=== PATIENT | female | born 1975 | race Caucasian/White ===

== ENCOUNTER 2022-11-30 21:56 | Outpatient (REF) | payer MEDICAID, SELFPAY ==
[2022-12-04 12:09] LABS: Age Gdln ACOG Testing Note (.); HPV Aptima Negative (Negative); IGP, Aptima HPV, rfx 16/18,45 Note (.)
== END 2022-11-30 21:57 | disposition home or self-care (01) ==
LOC: LAB 21:56
PROVIDERS: PCP Family Medicine; Visit Provider Physician Assistant
DX: Z12.4 Encounter for screening for malignant neoplasm of cervix (principal); Z11.51 Encounter for screening for human papillomavirus (HPV)
CPT/HCPCS: 87624; G0145

== ENCOUNTER 2023-01-15 16:10 | Emergency (ER) | payer MEDICAID, SELFPAY ==
[2023-01-15 16:12] VITALS: BP 147/73; PULSE 62; RESP 16; TEMP 36.6; O2SAT 98; BMI 30.3
--- NOTE | 2023-01-15 16:49 | ED_ITS ---
HPI - Back Pain/Injury General Chief Complaint: Back Pain/Injury Stated Complaint: Back pain, Muscle pain, Anxiety Time Seen by Provider: 01/15/23 16:49 Source: patient Mode of arrival: walk-in Limitations: no limitations History of Present Illness HPI Narrative: Patient presents to emergency department complaining of back pain. Patient states he has a history of anxiety. She also has chronic back pain. She states normally she gets injections for her back pain and that helps it. Today however she is having increased anxiety and muscle aches and diffuse myalgias. She states that she feels jittery. She states she takes trazodone to help her sleep at night but she lost states she can't find it and she has not taking it in the last 4 days. She states that she doesn't have a way of getting it refilled for the month until next week. She states she has taken her anxiety medication. She states he has restless legs. She denies any paresthesias, weakness. The pain management and injections were done at [facility]. She also states she has Graves' disease who is concerned that her thyroid levels could be off. She states however that she takes all of her medications religiously but somehow she just can't find trazodone. She denies any fever, chills, or cough. She denies any chest, shortness of breath. She denies any headache, visual disturbance, or speech difficulties. Denies any nausea, vomiting, diarrhea, constipation, abdominal pain. Denies any flank pain, hematuria, dysuria. Related Data Home Medications Medication Instructions Recorded Confirmed aripiprazole 5 mg tablet 5 mg PO DAILY 01/15/23 01/15/23 duloxetine 60 mg capsule,delayed 60 mg PO DAILY 01/15/23 01/15/23 release estradiol 2 mg tablet 2 mg PO DAILY 01/15/23 01/15/23 gabapentin 100 mg capsule 100 mg PO DAILY 01/15/23 01/15/23 levothyroxine 150 mcg tablet 150 mcg PO DAILY 01/15/23 01/15/23 lithium carbonate 300 mg capsule 300 mg PO BID 01/15/23 01/15/23 lorazepam 1 mg tablet 1 mg PO Q8H PRN agitation 01/15/23 01/15/23 metformin 500 mg tablet,extended 500 mg PO DAILY 01/15/23 01/15/23 release 24 hr naproxen 500 mg tablet 500 mg PO Q12H PRN pain 01/15/23 01/15/23 trazodone 100 mg tablet 100 mg PO BEDTIME 01/15/23 01/15/23 Previous Rx's Medication Instructions Recorded hydrocodone 5 mg-acetaminophen 325 1 tab PO Q6H PRN pain 3 days #10 01/15/23 mg tablet tabs trazodone 100 mg tablet 100 mg PO DAILY #10 tabs 01/15/23 Allergies Allergy/AdvReac Type Severity Reaction Status Date / Time amoxicillin [From Augmentin] Allergy Intermediate Verified 01/15/23 16:17 clavulanic acid Allergy Intermediate Verified 01/15/23 16:17 [From Augmentin] Review of Systems ROS Status of ROS 10 or more systems reviewed and unremarkable except as noted in history and below Exam Narrative Exam Narrative: Nurses notes and vital signs reviewed and patient is not hypoxic. General: Nontoxic, Well-appearing and in no apparent distress. Skin: Warm, dry, no pallor noted. No Rash Head: Normocephalic, atraumatic. Neck: Supple, non-tender. Eye: Pupils are equal, round and EOMI. No scleral icterus. Ears, Nose, Mouth, and Throat: TM clear, no posterior oropharynx erythema or nasal mucosal hypertrophy, uvula is mid-line Oral mucosa is moist Cardiovascular: Regular Rate and Rhythm without murmur, gallop or rub. Respiratory: No accessory muscle use or respiratory distress. Lungs are clear to auscultation, no wheezing, rales or rhonchi Chest Wall: no tenderness Back: No midline thoracic or lumbar vertebral tenderness. No erythema, or ecchymosis noted. The markings from injections still present. No CVA tenderness Musculoskeletal: normal ROM, no calf or popliteal tenderness, no lower extremity edema/swelling GI: Abdomen is soft, non-distended. Normal bowel sounds. No masses appreciated. No tenderness to palpation. No rebound, guarding, or rigidity noted. Neurological: A&O x4. No cranial nerve dysfunction observed. No truncal ataxia. Moves all extremities. Sensation intact. Psychiatric: Cooperative and interactive. anxious Constitutional Vital Signs, click to edit/add: Last Vital Signs Temp 97.8 F 01/15/23 16:12 Pulse 55 L 01/15/23 18:13 Resp 16 01/15/23 18:13 BP 120/57 01/15/23 18:13 Pulse Ox 98 01/15/23 18:13 O2 Del Method Room Air 01/15/23 18:13 Course Vital Signs Vital signs: Vital Signs Temperature 97.8 F 01/15/23 16:12 Pulse Rate 62 01/15/23 16:12 Respiratory Rate 16 01/15/23 16:12 Blood Pressure 147/73 H 01/15/23 16:12 Pulse Oximetry 98 01/15/23 16:12 Oxygen Delivery Method Room Air 01/15/23 16:12 Temperature 97.8 F 01/15/23 16:12 Pulse Rate 55 L 01/15/23 18:13 Respiratory Rate 16 01/15/23 18:13 Blood Pressure 120/57 01/15/23 18:13 Pulse Oximetry 98 01/15/23 18:13 Oxygen Delivery Method Room Air 01/15/23 18:13 MDM - Back Pain/Injury MDM Narrative Medical decision making narrative: It had an IV established, she was given 1 L of normal saline, Toradol. Patient was not able to find a ride so I will give her a prescription for trazodone and analgesics. Lab results are unremarkable. Patient does not have any focal neurologic deficit. all Results discussed with patient. Patient is feeling better. Patient was given a prescription for [place]. Or worse was checked. Patient does have Ativan written for her and she will take for spasms. At this time the patient is without objective evidence of an acute process requiring hospitalization or inpatient management. The patient has remained h emodynamically stable. No additional indication for emergent studies at this time. I answered all questions. Discussed discharge instructions including standard anticipatory guidance and what should prompt a return to the emergency department, including if they get worse are not getting better or develops any new or concerning symptoms. I've given them specific time frame in which to follow-up, and who to follow-up with. The patient demonstrates understanding. Patient is nontoxic and stable for discharge with outpatient follow-up. This note was created with the assistance of a speech recognition program. Although the intention is to generate documents that actually reflects the content of the visit, no guarantees can be provided that every mistake has been identified and corrected by editing. Differential Diagnosis Differential diagnosis: Likely strain of lumbar region Lab Data Attestation: I reviewed the patient's lab results. Labs: Lab Results 01/15/23 01/15/23 Range/Units 17:16 18:45 WBC 9.2 (4.0-11.0) 10^3/uL RBC 4.20 (4.20-5.40) 10^6/uL Hgb 12.4 (12.0-16.0) g/dL Hct 38.4 (36.0-48.0) % MCV 91.4 (81.0-99.0) fL MCH 29.5 (26.7-34.0) pg MCHC 32.3 (29.9-35.2) g/dL RDW 12.2 (11.0-15.0) % Plt Count 313 (150-450) 10^3/uL MPV 9.5 (9.5-13.5) fL Neut % (Auto) 90.1 H (43.0-75.0) % Lymph % (Auto) 6.7 L (20.5-60.0) % [place] % (Auto) 1.6 L (1.7-12.0) % Eos % (Auto) 0.5 L (0.9-7.0) % Baso % (Auto) 0.8 (0.2-2.0) % Neut # (Auto) 8.3 H (1.4-6.5) 10^3/uL Lymph # (Auto) 0.6 L (1.2-3.8) 10^3/uL [place] # (Auto) 0.2 L (0.3-0.8) 10^3/uL Eos # (Auto) 0.1 (0.0-0.7) 10^3/uL Baso # (Auto) 0.1 (0.0-0.1) 10^3/uL Abs Immat Gran (auto) 0.03 (0.00-0.03) 10^3/uL Imm/Tot Granulo (auto) 0.3 (0.0-0.5) % Sodium 138 (136-145) mmol/L Potassium 4.0 (3.5-5.1) mmol/L Chloride 106 (98-107) mmol/L Carbon Dioxide 25.5 (21.0-32.0) mmol/L Anion Gap 10.5 BUN 12.0 (7.0-18.0) mg/dL Creatinine 1.05 H (0.55-1.02) mg/dL Est GFR ( Amer) >60 (>=60) Est GFR (Non-Af Amer) 56 L (>=60) BUN/Creatinine Ratio 11.4 Glucose 141 H (74-106) mg/dL Calcium 9.1 (8.5-10.1) mg/dL Magnesium 2.1 (1.8-2.4) mg/dL Total Bilirubin 0.3 (0.2-1.0) mg/dL AST 22 (15-37) U/L ALT 26 (14-59) U/L Alkaline Phosphatase 101 (46-116) U/L Total Protein 7.7 (6.4-8.2) g/dL Albumin 3.9 (3.4-5.0) g/dL Globulin 3.8 g/dL Albumin/Globulin Ratio 1.0 TSH 0.596 (0.358-3.740) uIU/mL Urine Color Lt. yellow (YELLOW) Urine Clarity Clear (CLEAR) Urine pH 7.0 (5.0-9.0) Ur Specific [place] <=1.005 A (1.005-1.025) Urine Protein Negative (NEG/TRACE) mg/dL Urine Glucose (UA) Negative (NEGATIVE) mg/dL Urine Ketones Negative (NEGATIVE) mg/dL Urine Occult Blood Negative (NEGATIVE) Urine Nitrite Negative (NEGATIVE) Urine Bilirubin Negative (NEGATIVE) Urine Urobilinogen 0.2 (0.2-1.0) EU/dL Ur Leukocyte Esterase Negative (NEGATIVE) Discharge Plan Discharge Chief Complaint: Back Pain/Injury Clinical Impression: Insomnia, Low back pain Patient Disposition: Home, Self-Care Time of Disposition Decision: 18:58 Condition: Good Mode of Transportation: Private Vehicle Prescriptions / Home Meds: New trazodone 100 mg tablet 100 mg PO DAILY Qty: 10 0RF hydrocodone-acetaminophen 5-325 mg tablet 1 tab PO Q6H PRN (Reason: pain) 3 Days Qty: 10 0RF No Action aripiprazole 5 mg tablet 5 mg PO DAILY duloxetine 60 mg capsule,delayed release(DR/EC) 60 mg PO DAILY estradiol 2 mg tablet 2 mg PO DAILY gabapentin 100 mg capsule 100 mg PO DAILY levothyroxine 150 mcg tablet 150 mcg PO DAILY lithium carbonate 300 mg capsule 300 mg PO BID lorazepam 1 mg tablet 1 mg PO Q8H PRN (Reason: agitation) metformin 500 mg tablet extended release 24 hr 500 mg PO DAILY naproxen 500 mg tablet 500 mg PO Q12H PRN (Reason: pain) trazodone 100 mg tablet 100 mg PO BEDTIME Instructions: Insomnia (ED), Back Pain (ED) Stand Alone Forms: Portal Instructions Referrals: Hitesh Green MD [Primary Care Provider] - 1 week
[2023-01-15 17:22] LABS: Basophils Absolute Auto 0.1 10^3/uL (0.0-0.1); Basophils Percent Auto 0.8 % (0.2-2.0); Eosinophils Absolute Auto 0.1 10^3/uL (0.0-0.7); Eosinophils Percent Auto 0.5 % (0.9-7.0); Hematocrit 38.4 % (36.0-48.0); Hemoglobin 12.4 g/dL (12.0-16.0); Immature Granulocytes Abs Auto 0.03 10^3/uL (0.00-0.03); Immature Granulocytes Pct Auto 0.3 % (0.0-0.5); Lymphocytes Absolute Auto 0.6 10^3/uL (1.2-3.8); Lymphocytes Percent Auto 6.7 % (20.5-60.0); Mean Corpuscular HGB Conc 32.3 g/dL (29.9-35.2); Mean Corpuscular Hemoglobin 29.5 pg (26.7-34.0); Mean Corpuscular Volume 91.4 fL (81.0-99.0); Mean Platelet Volume 9.5 fL (9.5-13.5); Monocytes Absolute Auto 0.2 10^3/uL (0.3-0.8); Monocytes Percent Auto 1.6 % (1.7-12.0); Neutrophils Absolute Auto 8.3 10^3/uL (1.4-6.5); Neutrophils Percent Auto 90.1 % (43.0-75.0); Platelet Count 313 10^3/uL (150-450); Red Cell Distribution Width 12.2 % (11.0-15.0); White Blood Count 9.2 10^3/uL (4.0-11.0)
[2023-01-15] MEDS: 0.9 % SODIUM CHLORIDE 1,000 ML 999 ML IV (17:24)
[2023-01-15] MEDS: KETOROLAC TROMETHAMINE 30 MG/ML VIAL IVP (17:25)
[2023-01-15 17:47] LABS: Alanine Aminotransferase 26 U/L (14-59); Albumin Level 3.9 g/dL (3.4-5.0); Alkaline Phosphatase 101 U/L (46-116); Anion Gap 10.5; Aspartate Amino Transferase 22 U/L (15-37); BUN Creatinine Ratio 11.4; Bilirubin Total 0.3 mg/dL (0.2-1.0); Calcium 9.1 mg/dL (8.5-10.1); Carbon Dioxide 25.5 mmol/L (21.0-32.0); Chloride 106 mmol/L (98-107); Estimated GFR (African America >60 (>=60); Estimated GFR (Non-African Ame 56 (>=60); Globulin 3.8 g/dL; Glucose 141 mg/dL (74-106); Magnesium 2.1 mg/dL (1.8-2.4); Sodium 138 mmol/L (136-145); Thyroid Stimulating Hormone 0.596 uIU/mL (0.358-3.740); Total Protein 7.7 g/dL (6.4-8.2)
[2023-01-15 18:13] VITALS: BP 120/57; PULSE 55; RESP 16; O2SAT 98
[2023-01-15 18:53] LABS: Bilirubin Urine NEGATIVE (NEGATIVE); Blood Urine NEGATIVE (NEGATIVE); Clarity Urine CLEAR (CLEAR); Color Urine LT. YELLOW (YELLOW); Glucose Urine UA NEGATIVE (NEGATIVE); Ketones Urine NEGATIVE (NEGATIVE); Leukocyte Esterase Urine NEGATIVE (NEGATIVE); Nitrite Urine NEGATIVE (NEGATIVE); Protein Urine NEGATIVE (NEG/TRACE); Specific Gravity Urine <=1.005 (1.005-1.025); Urine Microscopic Indicated NO; Urobilinogen Urine 0.2 EU/dL (0.2-1.0)
== END 2023-01-15 19:18 | disposition home or self-care (01) ==
PROVIDERS: Emergency Provider Emergency Medicine; PCP Family Medicine
DX: M54.50 Low back pain, unspecified (principal); G47.00 Insomnia, unspecified; F41.9 Anxiety disorder, unspecified; E05.00 Thyrotoxicosis with diffuse goiter without thyrotoxic crisis or storm; Z79.899 Other long term (current) drug therapy; Z79.84 Long term (current) use of oral hypoglycemic drugs; Z79.890 Hormone replacement therapy
CPT/HCPCS: 36415; 80053; 81003; 83735; 84443; 85025; 96374; 99284

== ENCOUNTER 2023-10-27 12:31 | Outpatient (OUT) | payer MEDICAID, SELFPAY ==
--- NOTE | 2023-10-27 12:34 | MM_ITS ---
Patient Name: LAKIA TALBERT MR#: [id number] : 1975 Exam Date: 10/27/2023 Ordering Doctor: DR Hitesh Green . RADIOLOGY REPORT PROCEDURE: MM TOMOSYNTHESIS SCREENING BI COMPARISON: MG MAMM SCREEN RAFAEL W CAD, 11/02/2018. MG MAMM SCREEN RAFAEL W CAD, 08/31/2016. INDICATIONS: Screening Calculator Name NCI Breast Cancer Risk Assessment Tool 5 Year Breast Cancer Risk 1.00% Lifetime Breast Cancer Risk 10.20% Personal Breast Cancer No Personal Ovarian Cancer No Treatments None Family Cancers None LOCATION: [facility] BREAST COMPOSITION: The breasts are heterogeneously dense,which may obscure small masses. FINDINGS: DIAGNOSTIC CATEGORY 1--NEGATIVE. RIGHT BREAST: No significant suspicious finding. No significant change has occurred. LEFT BREAST: No significant suspicious finding. No significant change has occurred. RECOMMENDATIONS: ROUTINE MAMMOGRAM AND CLINICAL EVALUATION IN 12 MONTHS. PLEASE NOTE: A NORMAL MAMMOGRAM DOES NOT EXCLUDE THE POSSIBILITY OF BREAST CANCER. A CLINICALLY SUSPICIOUS PALPABLE LUMP SHOULD BE BIOPSIED. Dictated by: Shade Lopez M.D. on 10/29/2023 at 11:05 Approved by: Shade Lopez M.D. on 10/29/2023 at 11:17
== END 2023-10-27 12:32 | disposition home or self-care (01) ==
LOC: MAMMO 12:31
PROVIDERS: PCP Family Medicine; Visit Provider Family Medicine
DX: Z12.31 Encounter for screening mammogram for malignant neoplasm of breast (principal)
CPT/HCPCS: 77063; 77067

== ENCOUNTER 2023-11-05 12:55 | Outpatient (OUT) | payer MEDICAID, SELFPAY ==
--- NOTE | 2023-11-05 12:58 | CT_ITS ---
[address] [address] Patient Name: LAKIA TALBERT MRN: [id number] date: 1975 Sex: F Assigned Patient Location: CT Current Patient Location: Accession/Order Number: [id number] Exam Date: 11/05/2023 13:02 Report Date: 11/08/2023 08:07 At the request of: JAYLA OBREGON Procedure: CT chest wo con EXAMINATION: CT chest wo con HISTORY: Abnormal Radionuclide Bone Scan R94.8 COMPARISON: Nuclear medicine bone SPECT CT with whole-body 10/01/2023 TECHNIQUE: Multi-planar CT images were obtained without and/or with IV contrast as indicated by examination type. Axial, Coronal, and Sagittal images. Dose reduction techniques were achieved by using automated exposure control and/or adjustment of mA and/or kV according to patient size and/or use of iterative reconstruction technique. FINDINGS: LUNGS: No visible pulmonary disease. PLEURA: No mass, effusion, or pneumothorax. VASCULATURE: No abnormality. EDUAR: No mass or adenopathy. MEDIASTINUM: No mass or adenopathy. CARDIAC: No enlargement or pericardial thickening.. Coronary artery calcifications: AORTA: No aneurysm or dissection. CHEST WALL: No mass or axillary adenopathy. BONES: No bone lesion or fracture. LIMITED ABDOMEN: No suspicious findings Limited images of the upper abdomen. OTHER: Negative. CT/CT chest wo con IMPRESSION: 1. No abnormal or suspicious findings with specific attention paid to the lower right margin of the sternum. Electronically authenticated by: THERESA HARRIS Date: 11/08/2023 08:07
== END 2023-11-05 12:56 | disposition home or self-care (01) ==
LOC: CT 12:55
PROVIDERS: PCP Family Medicine; Visit Provider Family Medicine
DX: R94.8 Abnormal results of function studies of other organs and systems (principal)
CPT/HCPCS: 71250

== ENCOUNTER 2023-12-07 19:14 | Outpatient (REF) | payer MEDICAID, SELFPAY ==
[2023-12-13 12:09] LABS: Age Gdln ACOG Testing Note (.); HPV Aptima Negative (Negative); IGP, Aptima HPV, rfx 16/18,45 Note (.)
== END 2023-12-07 19:15 | disposition home or self-care (01) ==
LOC: LAB 19:14
PROVIDERS: PCP Family Medicine; Visit Provider Obstetrics & Gynecology
DX: Z01.419 Encounter for gynecological examination (general) (routine) without abnormal findings (principal)
CPT/HCPCS: 87624; 88175

== ENCOUNTER 2023-12-16 10:15 | Outpatient (OUT) | payer MEDICAID, SELFPAY ==
--- OUTSIDE RECORDS SUMMARY | 2023-12-16 10:39 | XMS_ITS | CCD ---
Author Organization [facility] Care Team Providers Care Film And Video Editor Name Role Phone Jose Alfredo Perez Unavailable MALINDA, DR BELTRAN Admitting Unavailable MALINDA, DR BELTRAN Attending Unavailable NADERER, DR HITESH Johnson Primary Care Unavailable MALINDA, DR BELTRAN Consulting Unavailable NADERER, DR HITESH Johnson Admitting Unavailable NADERER, DR HITESH Johnson Attending Unavailable NADERER, DR HITESH Johnson Primary Care Unavailable NADERER, DR HITESH Johnson Consulting Unavailable NADERER, DR HITESH Johnson Admitting Unavailable NADERER, DR HITESH Johnson Attending Unavailable NADERER, DR HITESH Johnson Primary Care Unavailable NADERER, DR HITESH Johnson Consulting Unavailable NADERER, DR HITESH Johnson Admitting Unavailable NADERER, DR HITESH Johnson Attending Unavailable NADERER, DR HITESH Johnson Primary Care Unavailable NADERER, DR HITESH Johnson Consulting Unavailable NADERER, DR HITESH Johnson Admitting Unavailable NADERER, DR HITESH Johnson Attending Unavailable NADERER, DR HITESH Johnson Primary Care Unavailable TULSA, DR WAYNE Alvarado Consulting Unavailable ZIEBER, DR THERESA Diez Consulting Unavailable NADERER, DR HITESH Johnson Consulting Unavailable Naderer Hitesh BEE Primary Care Provider OTIS VAZQUEZ Attending Unavailable VAZQUEZ, OTIS E Referring Unavailable NADERER, HITESH Primary Care Unavailable OTIS VAZQUEZ Admitting Unavailable OTIS VAZQUEZ Attending Unavailable NADEREHITESH Diez Referring Unavailable NADERER, HITESH Primary Care Unavailable SONALI LOPEZ Attending Unavailable NADERERHITESH Referring Unavailable NADERER, HITESH Primary Care Unavailable EVITA, OTIS E Admitting Unavailable EVITA, OTIS E Attending Unavailable NADEREChary, HITESH Referring Unavailable NADERER, HITESH Primary Care Unavailable OTIS VAZQUEZ Attending Unavailable EVITA, OTIS E Referring Unavailable NADERER, HITESH Primary Care Unavailable ANURAG NAGY Attending Unavailable HITESH OBREGON Primary Care Unavailable SONALI LOPEZ Attending Unavailable HITESH OBREGON Referring Unavailable HITESH OBREGON Primary Care Unavailable OTIS VAZQUEZ Attending Unavailable OTIS VAZQUEZ Referring Unavailable MINDI, HITESH Primary Care Unavailable OTIS VAZQUEZ Admitting Unavailable OTIS VAZQUEZ Attending Unavailable HITESH OBREGON Referring Unavailable HITESH OBREGON Primary Care Unavailable ANURAG NAGY Attending Unavailable HITESH OBREGON Primary Care Unavailable LUZ MARIA CANTU Referring Unavailable HITESH OBREGON Primary Care Unavailable Ickes PA-C, Tia Renee Attending Unav ailable Ickes PA-C, Tia Renee Attending Unav ailable Wade BEE, Selma Daniels Attending Unavailable Hitesh Obregon MD [facility] Unavail able Nienberg PA-C, Sonali Laguerre Referring Un available Ickes PA-C, Tia Renee Attending Unav ailable Ickes PA-C, Tia Rainey Attending Unav ailable Hitesh Obregon MD [facility] Unavail able Ickes PA-C, Tia Brigid Attending Unav ailable Ickes PA-C, Tia Brigid Attending Unav ailable Ickes PA-C, Tia Renee Attending Unav ailable [facility] HITESH OBREGON Attending Unavailable ADORE MENDOZA Attending Unavailable HITESH OBREGON Attending Unavailable DEVIN PETTY Attending Unavailable Viral Ha Attending Unavailab le Viral Ha Admitting Unavailab le Allergies Allergy Classification Reported Allergen(s) Allergy Type Date of Onset Reaction(s) Facility Amoxicillin / Clavulanate (1 source) Amoxicillin / Clavulanate; Translations: [amoxicillin-cla vulanate] Drug Allergy [facility] Repository Latex (1 source) Latex; Translations: [Latex] Substance Allergy [facility] Repository (4 sources) Amoxicillin / [facility] Latex; Translations: [LATEX] Drug allergy 5 Unknown [facility] (1 source) Amoxicillin / Clavulanate Drug Allergy 3 [facility] Repository (1 source) Latex Drug allergy (disorder) 3 [facility] (1 source) Levamisole Drug Allergy 3 [facility] (1 source) Meclizine Drug Allergy 3 [facility] (1 source) AMOXICILLIN-POT CLAVULANATE; Translations: [AMOXICILLIN-POT CLAVULANATE] Propensity to adverse reactions to drug (disorder) 5 [facility] Repository (1 source) Amoxicillin Drug Allergy 3 [facility] Repository (1 source) Clavulanate Drug Allergy 3 [facility] Repository (1 source) Latex Drug allergy (disorder) 3 [facility] Repository Medications Current Medications Medication Drug Class(es) Dates Sig (Normalized) Sig (Original) ARIPiprazole 5 mg oral tablet (3 sources) Atypical Antipsychotic take 1 tablet by mouth in the morning ARIPiprazole (ABILIFY) 5 mg tablet Take 1 tablet (5 mg total) by mouth in the morning. 0 Active cariprazine 1.5 mg oral capsule (1 source) Atypical Antipsychotic Start: 08-05-2023 take 1 capsule by mouth once daily VRAYLAR 1.5 mg capsule TAKE 1 CAPSULE BY MOUTH DAILY 0 08/05/2023 Active cholecalciferol 0.05 mg oral tablet (4 sources) Vitamin D Start: 04-29-2021 VITAMIN D3 50 mcg (2,000 unit) tablet Vitamin D3 50 MC G (2000 UT) Oral for 30 Active cyclobenzaprine hydrochloride 10 mg oral tablet (3 sources) Muscle Relaxant Start: 11-18-2018 cyclobenzaprine (FLEXERIL) 10 mg tablet DULoxetine 60 mg delayed release oral capsule (4 sources) Serotonin and Norepinephrine Reuptake Inhibitor Start: 12-07-2018 DULoxetine (CYMBALTA) 60 mg capsule 0 12/07/2018 Active estradiol 2 mg oral tablet (4 sources) Estrogen take 1 tablet by mouth in the morning estradiol (ESTRACE) 2 mg tablet Take 1 tablet (2 mg total) by mouth in the morning. 0 Active gabapentin 100 mg oral capsule (3 sources) Anti-epileptic Agent Start: 08-02-2022 take 1 capsule by mouth in the morning, then take 1 capsule by mouth at bedtime gabapentin (NEURONTIN) 100 mg capsule Take 1 capsule (100 mg total) by mouth in the morning and 1 capsule (100 mg total) before bedtime. 0 08/02/2022 Active levothyroxine sodium 0.137 mg oral tablet (7 sources) l-Thyroxine Start: 05-25-2021 take 1 tablet by mouth in the morning levothyroxine (SYNTHROID, LEVOTHROID) 137 MCG tablet Take 1 tablet (137 mcg total) by mouth in the morning. 0 05/25/2021 Active Start: 11-19-2018 levothyroxine (SYNTHROID, LEVOTHROID) 75 MCG tablet 2 tablets (150 mcg total). 0 11/19/2018 Active take 1 tablet by jesus manuel th once daily Levothyroxine Sodium 137 MCG TAKE 1 TABLET BY MOUTH DAILY Diagnosis Unavailable Oral for 30 Active lithium carbonate 300 mg oral capsule (4 sources) Start: 11-21-2018 take 1 capsule by mouth in the morning, then take 1 capsule by mouth at mealtime lithium carbonate 300 mg capsule Take 1 capsule (300 mg total) by mouth in the morning and 1 capsule (300 mg total) in the evening. Take with meals. 0 11/21/2018 Active LORazepam 1 mg oral tablet (4 sources) Benzodiazepine LORazepam (ATIVA N) 1 mg tablet Take 1 tablet (1 mg total) by mouth. 0 Active 24 hr metFORMIN hydrochloride 500 mg extended release oral tablet (3 sources) Biguanide take 1 tablet by mouth once daily at breakfast metFORMIN XR (GLUCOPHAGE XR) 500 mg 24 hr tablet Take 1 tablet (500 mg total) by mouth daily with breakfast. 0 Active methocarbamol 750 mg oral tablet (4 sources) Muscle Relaxant Start: 04-29-2021 take 1 tablet by mouth three times daily as needed methocarbamoL (ROBAXIN) 750 mg tablet Take 1 tablet (750 mg total) by mouth 3 (three) times a day as needed. 0 04/29/2021 Active methylPREDNISolone (3 sources) Corticosteroid Start: 01-26-2023 methylPREDNISolone (MEDROL, MISHA,) 4 mg tablet follow package directions 21 tablet 0 01/26/2023 Active naproxen 500 mg oral tablet (3 sources) Nonsteroidal Anti-inflammatory Drug take 1 tablet by mouth in the morning, then take 1 tablet by mouth at mealtime naproxen (NAPROSYN) 500 mg tablet Take 1 tablet (500 mg total) by mouth in the morning and 1 tablet (500 mg total) in the evening. Take with meals. 0 Active omeprazole 20 mg delayed release oral capsule (3 sources) Proton Pump Inhibitor take 1 capsule by mouth in the morning omeprazole (PriLOSEC) 20 mg capsule Take 1 capsule (20 mg total) by mouth in the morning. 0 Active traZODone hydrochloride 100 mg oral tablet (4 sources) Serotonin Reuptake Inhibitor take 1 tablet by mouth once daily traZODone (DESYREL) 100 mg tablet Take 1 tablet (100 mg total) by mouth nightly. 0 Active Problems Active Problems Problem Classification Problem Date Documented Da te Episodic/Chronic Nutritional deficiencies (1 source) Vitamin D deficiency, unspecified; Translations: [VITAMIN D DEFICIENCY UNSPECIFIED] Onset: 07-04-2021 Chronic Other ear and sense organ disorders (3 sources) Hearing loss; Translations: [Unspecified hearing loss, unspecified ear] Onset: 12-14-2018 12-14-2018 Chronic Other gastrointestinal disorders (1 source) Irritable bowel syndrome characterized by constipation; Translations: [Irritable bowel syndrome without diarrhea] Chronic Spondylosis; intervertebral disc disorders; other back problems (15 sources) Bilateral inflammation of sacroiliac joint; Translations: [Sacroiliitis, not elsewhere classified] Onset: 05-06-2021 Resolved: 05-22-2021 Chronic Spondylosis; intervertebral disc disorders; other back problems (7 sources) Spinal stenosis of lumbar region; Translations: [Spinal stenosis, lumbar region with neurogenic claudication] Onset: 04-09-2022 07-16-2022 Episodic Thyroid disorders (5 sources) Hypothyroidism, unspecified; Translations: [HYPOTHYROIDISM UNSPECIFIED] Onset: 10-01-2021 Chronic Past or Other Problems Problem Classification Problem Date Documented Da te Episodic/Chronic Abdominal hernia (1 source) Hiatal hernia; Translations: [Diaphragmatic hernia without obstruction or gangrene] Episodic Abdominal pain (2 sources) Abdominal pain; Translations: [Unspecified abdominal pain] Episodic Conditions associated with dizziness or vertigo (3 sources) Dizziness; Translations: [Dizziness and giddiness] Onset: 12-14-2018 12-14-2018 Episodic Hemorrhoids (1 source) Hemorrhoids; Translations: [Unspecified hemorrhoids] Episodic Immunizations and screening for infectious disease (1 source) Encounter for screening for human papillomavirus (HPV); Translations: [ENC SCREENING HUMAN PAPILLOMAVIRUS] Onset: 06-05-2021 Episodic Other aftercare (6 sources) Other halfway (current) drug therapy; Translations: [OTH GAMMA OPERATOR CURRENT DRUG THERAPY] Onset: 09-29-2021 Episodic Other ear and sense organ disorders (3 sources) Bilateral tinnitus; Translations: [Tinnitus, bilateral] Onset: 12-14-2018 12-14-2018 Episodic Other gastrointestinal disorders (1 source) Constipation; Translations: [Constipation, unspecified] Episodic Other gastrointestinal disorders (1 source) Swollen abdomen; Translations: [Abdominal distension (gaseous)] Episodic Other gastrointestinal disorders (1 source) Heartburn; Translations: [Heartburn] Episodic Other non-traumatic joint disorders (1 source) Pain in left shoulder; Translations: [PAIN IN LEFT SHOULDER] Onset: 05-10-2021 Episodic Other nutritional; endocrine; and metabolic disorders (1 source) Weight gain; Translations: [Abnormal weight gain] Episodic Other screening for suspected conditions (not mental disorders or infectious disease) (4 sources) Encounter for screening for malignant neoplasm of cervix; Translations: [ENC SCREENING MALIG NEOPLASM CERV] Onset: 06-02-2021 Episodic Results Test Name Value Interpretation Reference Range Facility MR LUMBAR SPINE WO CONTon MR LUMBAR SPINE WO CONT MR LUMBAR SPINE WO CONT *ADDENDUM*Images are further reviewed the has request by the referring physician. Further reviewed of the images reveal severe disc degenerative disease at L5-S1. There is a bone marrow changes in the adjacent endplates. There is a mixed hyper intensity in the adjacent endplates and surrounded by hypointensity. Appearance is consistent with mixed Modic type I/type II criteria. Findings represent bone marrow conversion into the fatty marrow. Rest of the vertebrae with the normal bone marrow for the patient's age. If you need any additional information please call me at your convenience. Finalized by Joe Fairbanks MD on 10/29/2023 1:26 PM [facility] Pain Management Office/Clini c Noteon 10-29-2023 Pain Management Office/Clinic Note Chief Complaint Lower back pain. Bilateral leg pain from hips to ankles. Right hip pain. History of Present Illness Opioid Risk Assessment Oswestry Disability Form AM Behavior: Same Family History of Substance Abuse: None PM Pain Intensity: The pain is moderate at the moment Day Progresses Behavior: Same Personal History of Substance Abuse: None PM Personal Care: It is painful to look after myself and I am slow and careful PM Behavior: Same Age Between 16 and 45: No PM Sitting: Pain prevents me from sitting more than one hour Timing of onset: pt reports pain started 20 years ago. History of Preadolescent Sexual Abuse: No PM Pain Lifting: Pain prevents me from lifting heavy weights off the floor, but I can manage if they are conveniently placed eg. on a table Related injury/event: pt denies any injury or event related to pain. Mental Health Condition: Yes PM Walking: Pain prevents me from walking more than 1 mile Past treatment: PT: noneChiropractic: noneInjections: PRN with Dr[facility] Vazquez in [facility]. Surgery: noneTENS: Home unit Depression: Yes PM Standing: Pain prevents me from standing form more than 30 minutes Pain location and laterality: Lower back pain. Bilateral leg pain from hips to ankles. Right hip pain. Total Opioid Risk Score: 3 PM Sleeping: My sleep is occasionally disturbed by pain Pain quality: Aching, Burning, Cramping Total Score Risk Category: Low risk PM Sex Life: My sex life is normal and causes no pain/NA Pain Pattern: Constant PM Social Life: Pain has restricted my social life to my home Pain rate at rest: 3 PM Traveling: Pain prevents me from traveling except to receive treatment Pain rate with activity: 10 PM Oswestry Score: 44 Bending: Aggravating PM Oswestry Score Interpretation: 41% to 60% Severe Disability: Pain remains the main problem in this group but activities of daily living are affected. These patients require a detailed investigation. Cold/Ice: No effect Heat: Alleviating Lifting: Aggravating Lying: Alleviating Medications: Alleviating Performance of ADL's: Aggravating Pushing/Pulling: Aggravating Sitting: Aggravating Stairs: Aggravating Standing: Aggravating Transitioning: Aggravating Walking: Aggravating Sensory impairment location: intermittent numbness and tingling in bilateral legs. Comments TENS: Home unit - no help Date Chiropractor: none Date PT: none Date Injections: Current Frequency Injections: PRN Effective Injections: helps Comments Injections: Dr. Vazquez in [facility] Date Surgery: none Recent testing: Yes Recent testing type: Total body bone scanXR scoliosis studyCT LumbarMR lumbar Loss of bladder/bowel: Denies Demeanor: Pleasant Distress: Moderate Appearance: Appropriate Cognitive impairment: No Feels safe at home: Yes Suicidal/homicidal ideation: No Family History of Substance Abuse: None Personal History of Substance Abuse: None Age Between 16 and 45: No History of Preadolescent Sexual Abuse: No Mental Health Condition: Yes Depression: Yes Total Opioid Risk Score: 3 Total Score Risk Category: Low risk Review of Systems A review of systems was conducted and noted to be noncontributory to the patients presenting complaint. Full details are available on form [id number] completed by the patient and added to the record on today's date. Physical Exam Vitals & Measurements HR: 63 (Peripheral) RR: 18 BP: 123/83 HT: 167 cm WT: 89.3 kg (Estimated) BMI: 32.02 CONSTITUTIONAL: The patient is alert and oriented ?3. There is no cognitive impairment. HEENT: normocephalic/atraumat ic. Trachea in the midline. RESPIRATIONS: Unlabored ABDOMEN: Soft, nontender EXTREMITIES: +2 distal pulses, Refill brisk, Homans sign absent. NEUROLOGIC: Sensorium and intact T12 through S1. +5 MRC in the lower extremity motor units. Long track signs are absent. Lumbar-no significant tenderness to palpation noted in the lumbar spine and paraspinal musculature. Pain is elicited with extension, and lateral rotation of the lumbar spine. Range of motion is slightly diminished with these motions due to pain. Coordination remains intact. Gait remains non-antalgic. Additional Vitals BP Position/Location: Sitting, Left arm Assessment/Plan Diagnosis: Vertebrogenic pain derived at L5-S1, lumbar spondylosis This is a pleasant 48-year-old female who presents for evaluation. The patient has engaged in a 6 week course of dedicated physiologic therapeutics within the last 3 months. A 6 week trial of activity modification including transition maneuver avoidance as well as strict upper extremity lift and movement limits has failed to provide reprieve. The patient has failed to respond to a 3 month trial of oral analgesic therapy including nonsteroidal anti-inflammatory agents and muscle relaxant modalities. Her imaging was reviewed, which is significant for Modic changes at L5-S1. This was confirmed by the radiologist and her neurosurgeon, (more content not included)... Normal [facility] Neurosurgery Office/Clinic N oteon 05-28-2024 Neurosurgery Office/Clinic Note Chief Complaint Back Follow Up History of Present Illness Patient is a pleasant 48-year-old female with a history of fibromyalgia, insulin resistance, Vitamin D defiiciency, and Graves' disease, who presents to the outpatient neurosurgical clinic today accompanied by her mother, for follow up and imaging review on behalf of complaints of chronic low back pain. Patient states she has struggled with components of chronic low back pain for most of her adult life. She states this has historically been under moderate control with conservative management, but that she experienced worsening in low back pain approximately 9 months ago without injury. Patient states symptoms have been stable since onset. Patient currently describes midline and bilateral lumbosacral pain that is constant, but is worse with prolonged sitting, prolonged standing/walking, and mechanical movement/use. She notes less prominent intermittent pain throughout the bilateral lower extremities, right greater than left, in a somewhat nonspecific/nondermato mal distribution. She also notes intermittent numbness/paresthesias throughout the lateral toes of the right foot. Patient denies proximal right lower extremity numbness/paresthesias and denies left lower extremity numbness or paresthesias. She denies motor weakness in the lower extremities, bowel/bladder incontinence, or saddle paresthesias. Patient reports components of coexisting chronic cervical and thoracic pain without recent change or worsening and without intractable pain. She denies radicular pain into the upper extremities or chest wall/thorax. She denies numbness or paresthesias in the upper extremities or chest wall/thorax. Patient denies motor weakness in the upper extremities, decreased dexterity, or chronic gait imbalance. Work up includes: MRI lumbosacral spine 02/15/2023: Multisegmental degenerative disc disease and facet arthropathy most advanced at L5-S1 with disc height collapse; central/left paracentral disc L5-S1 with left L5-S1 lateral recess stenosis CT lumbosacral spine 05/13/2023: No pars defects; advanced degenerative changes at L5-S1 with Modic changes in the endplates and vacuum disc phenomenon; degenerative changes of the bilateral SI joints Bone SPECT scan 10/01/23: no abnormal uptake in lumbar spine or SI joints; non specific focal uptake in midsternum (radiology recommendation for CT chest for further evaluation) Flexion/extension films lumbosacral spine 05/13/2023: Stable Scoliosis x-rays 05/13/2023: No significant disruption in sagittal balance Patient denies physical therapy or healthcare market consultant. Her pain has been refractory to oral medication management including gabapentin, Cymbalta, NSAIDs, and muscle relaxers. In addition, she is established with pain management and has attempted injection modalities historically including, in the past year, bilateral L4-5 and L5-S1 RFA's 02/2022, caudal epidural injections 06/12/2022 and 08/10/2022, and bilateral SI injections 09/10/2022 and 01/10/2023. Patient reports that historically, lumbar RFA's have provided a notable degree of benefit. Most recently, she underwent repeat right lumbar RFA's mid July with minimal benefit. Patient currently rates her pain in the mid to high VAS range on a standard pain scale. She estimates that 90% of her pain is attributable to axial lumbar pain with the remaining 10% being attributable to lower extremity symptoms. Patient states symptoms interrupt sleep and activity level/function. Physical Exam Vitals & Measurements HR: 60 (Peripheral) BP: 150/100 SpO2: 96 HT: 168 cm WT: 91.7 kg WT: 91.7 kg (Dosing) BMI: 32.49 Additional Vitals BP Position/Location: Sitting, Right arm General: [Alert and oriented, well nourished, no acute distress]. Eye: [normal conjunctiva, no scleral icterus]. HENT: [normocephalic, atraumatic, oral mucosa pink and moist, dentition intact]. Neck: [Supple]. Pulmonary: [non-labored respiration]. Cardiovascular: [no edema, strong pulses with rapid capillary refill]. Skin: [Normal temperature and texture; no rashes; no digit clubbing or cyanosis]. Psychiatric: [Appropriate judgment and insight, appropriate mood and affect]. On exam in the office, patient is seated comfortably in a chair and is non painful appearing. The thoracolumbar spine is without deformities. Diffuse trigger points are noted throughout the paravertebral musculature of the spinal axis, proximal upper extremities bilaterally, and hip/gluteal region/proximal lower extremities bilaterally consistent with underlying fibromyalgia; tenderness to palpation is also noted throughout the lumbar facet regions bilaterally; thoracolumbar spine is nontender to percussion. Bilateral sacroiliac regions are nontender to palpation. Range of motion restricted with increase in pain with flexion, extension, and facet loading maneuvers . No lumbar neurotension signs with negative straight leg raise, reverse straight leg raise, and femoral stretch test bilaterally. Bilateral (more content not included)... Normal [facility] Provider Letteron 10-19-2023 Provider Letter Hitesh Obregon MD [address] [place] [address] Re: Lakia Talbert Date of Visit: 10/19/2023 Dear Hitesh Obregon, Thank you for allowing me to contribute to the care of your patient, Lakia Talbert. Attached is my office note and you will find my assessment and recommendations from our encounter today. Please do not hesitate to contact me with any questions or concerns. Sincerely, Tia Webb PA-C [facility] [address] [address] The following document(s) were included in the letter: October 19, 2023 14:26:47 EDT - (10/19/2023) Neurosurgery Office Visit Note Normal [facility] NM Bone SPECT CT with Whole Bodyon 10-04-[address] with Whole Body NUCLEAR MEDICINE TOTAL BODY BONE SCAN AND SPECT-CT HISTORY: Back pain. COMPARISON: X-ray lumbar spine 05/13/2023. METHOD: The patient was injected intravenously with 26.4 mCi of Tc-99m MDP, scintigraphy of the entire skeleton was performed more than three hours later. SPECT CT of the lumbar spine was performed. FINDINGS: There is a focus of increased uptake seen in the midsternum. There is no evidence of abnormal uptake in the spine, ribs or manubrium. On planar images, there is mild uptake in the bilateral hip joints with no significant abnormal uptake on the SPECT-CT. The entire hip joints are not visualized but do not appear to have significant degenerative changes on the visualized portions of the hip joints on CT. There is moderate narrowing at the L5-S1 disc space with no significant abnormal uptake. There is no evidence of abnormal uptake in the pars reticularis. IMPRESSION: No evidence of abnormal uptake in the lumbar spine. There is degenerative disc disease at L5-S1. Focal increased uptake in the midsternum. Recommend correlation with CT chest without contrast to exclude underlying aggressive bone lesion. Also recommend bilateral screening mammogram if not recently performed. Final Dictated by: Will Berger MD Dictated DT/TM: 10/04/2023 11:56 am Signed by: Will Berger MD Signed (Electronic Signature): 10/04/2023 12:04 pm (If Report Is Signed, Electronically Signed in Other Vendor System) Normal [facility] Neurosurgery Office/Clinic N romion 09-13-2023 Neurosurgery Office/Clinic Note Chief Complaint Back consult History of Present Illness Patient is a pleasant 48-year-old female with a history of fibromyalgia, insulin resistance, Vitamin D defiiciency, and Graves' disease, who presents to the outpatient neurosurgical clinic today accompanied by her mother, for follow up and imaging review on behalf of complaints of chronic low back pain. Patient states she has struggled with components of chronic low back pain for most of her adult life. She states this has historically been under moderate control with conservative management, but that she experienced worsening in low back pain approximately 7-8 months ago without injury. Patient states symptoms have been stable since onset. Patient currently describes midline and bilateral lumbosacral pain that is constant, but is worse with prolonged sitting, prolonged standing/walking, and mechanical movement/use. She notes less prominent intermittent pain throughout the bilateral lower extremities, right greater than left, in a somewhat nonspecific/nondermato mal distribution. She also notes intermittent numbness/paresthesias throughout the lateral toes of the right foot. Patient denies proximal right lower extremity numbness/paresthesias and denies left lower extremity numbness or paresthesias. She denies motor weakness in the lower extremities, bowel/bladder incontinence, or saddle paresthesias. Patient reports components of coexisting chronic cervical and thoracic pain without recent change or worsening and without intractable pain. She denies radicular pain into the upper extremities or chest wall/thorax. She denies numbness or paresthesias in the upper extremities or chest wall/thorax. Patient denies motor weakness in the upper extremities, decreased dexterity, or chronic gait imbalance. Work up includes: MRI lumbosacral spine 02/15/2023: Multisegmental degenerative disc disease and facet arthropathy most advanced at L5-S1 with disc height collapse; central/left paracentral disc L5-S1 with left L5-S1 lateral recess stenosis CT lumbosacral spine 05/13/2023: No pars defects; advanced degenerative changes at L5-S1 with Modic changes in the endplates and vacuum disc phenomenon; degenerative changes of the bilateral SI joints Flexion/extension films lumbosacral spine 05/13/2023: Stable Scoliosis x-rays 05/13/2023: No significant disruption in sagittal balance Patient denies physical therapy or healthcare market consultant. Her pain has been refractory to oral medication management including gabapentin, Cymbalta, NSAIDs, and muscle relaxers. In addition, she is established with pain management and has attempted injection modalities historically including, in the past year, bilateral L4-5 and L5-S1 RFA's 02/2022, caudal epidural injections 06/12/2022 and 08/10/2022, and bilateral SI injections 09/10/2022 and 01/10/2023. Patient reports that historically, lumbar RFA's have provided a notable degree of benefit. Since time of last office visit, she underwent repeat right lumbar RFA's mid July with an estimated 50% improvement in pain. She is in the process of proceeding with left lumbar DMR's. Patient currently rates her pain in the mid to high VAS range on a standard pain scale. She estimates that 90% of her pain is attributable to axial lumbar pain with the remaining 10% being attributable to lower extremity symptoms. Patient states symptoms interrupt sleep and activity level/function. Physical Exam Vitals & Measurements HR: 53 (Peripheral) BP: 116/77 HT: 167.5 cm WT: 90.7 kg WT: 90.7 kg (Dosing) BMI: 32.33 Additional Vitals BP Position/Location: Sitting, Right arm General: [Alert and oriented, well nourished, no acute distress]. Eye: [normal conjunctiva, no scleral icterus]. HENT: [normocephalic, atraumatic, oral mucosa pink and moist, dentition intact]. Neck: [Supple]. Pulmonary: [non-labored respiration]. Cardiovascular: [no edema, strong pulses with rapid capillary refill]. Skin: [Normal temperature and texture; no rashes; no digit clubbing or cyanosis]. Psychiatric: [Appropriate judgment and insight, appropriate mood and affect]. On exam in the office, patient is seated comfortably in a chair and is non painful appearing. The thoracolumbar spine is without deformities. Diffuse trigger points are noted throughout the paravertebral musculature of the spinal axis, proximal upper extremities bilaterally, and hip/gluteal region/proximal lower extremities bilaterally consistent with underlying fibromyalgia; tenderness to palpation is also noted throughout the lumbar facet regions bilaterally; thoracolumbar spine is nontender to percussion. Bilateral sacroiliac regions are nontender to palpation. Range of motion restricted with increase in pain with flexion, extension, and facet loading maneuvers . No lumbar neurotension signs with negative straight leg raise, reverse straight leg raise, and femoral stretch test bilaterally. Bilateral hips are nontender to palpation with negative hip pointer signs. Muscle strength is 5 o (more content not included)... Normal [facility] Glucose Glucometer (BldC) [M ass/Vol]on 09-03-2023 Glucose [Mass/Vol] 99 mg/dL Normal 65-99 [facility] CALCIUMon 07-19-2023 Calcium [Mass/Vol] 9.9 mg/dL Normal 8.5-10.5 [facility] Comment on above: Performed By: #### 1 7861-6, ELEC, 3016-3, 3024-7, 91752-8 #### [facility] ([id number]) [address], [address] [place] [address] ELECTROLYTESon 07-19-2023 Anion gap [Moles/Vol] 8 mmol/L Normal 5-15 [facility] Comment on above: Performed By: #### 1 7861-6, ELEC, 3016-3, 3024-7, 65605-7 #### [facility] ([id number]) [address], [address] [place] [address] Chloride [Moles/Vol] 100 mmol/L Normal 98-109 [facility] Comment on above: Performed By: #### 1 7861-6, ELEC, 3016-3, 3024-7, 11011-1 #### [facility] ([id number]) [address], [address] [place] [address] CO2 [Moles/Vol] 27 mmol/L Normal 22-32 [facility] Comment on above: Performed By: #### 1 7861-6, ELEC, 3016-3, 3024-7, 70181-6 #### [facility] ([id number]) [address], [address] [place] [address] Potassium [Moles/Vol] 4.0 mmol/L Normal 3.5-5.0 [facility] Comment on above: Performed By: #### 1 7861-6, ELEC, 3016-3, 3024-7, 54849-7 #### [facility] ([id number]) [address], [address] [place] [address] Sodium [Moles/Vol] 135 mmol/L Normal 134-146 [facility] Comment on above: Performed By: #### 1 7861-6, ELEC, 3016-3, 3024-7, 92441-3 #### [facility] ([id number]) [address], [address] [place] [address] FREE T4on 07-19-2023 Free T4 [Mass/Vol] 1.00 ng/dL Normal 0.61-1.60 [facility] Comment on above: Performed By: #### 1 7861-6, ELEC, 3016-3, 3024-7, 81696-5 #### [facility] ([id number]) [address], [address] [place] [address] LITHIUMon 07-19-2023 [place] [Moles/Vol] 0.9 mmol/L Normal 0.5-1.5 [facility] Comment on above: Performed By: #### 1 7861-6, ELEC, 3016-3, 3024-7, 82843-4 #### [facility] ([id number]) [address], [address] [place] [address] TSH Qnon 07-19-2023 TSH 9.27 uIU/mL High 0.49-4.67 [facility] Comment on above: Performed By: #### 1 7861-6, ELEC, 3016-3, 3024-7, 97918-8 #### [facility] ([id number]) [address], [address] [place] [address] Glucose Glucometer (BldC) [M ass/Vol]on 07-09-2023 Glucose [Mass/Vol] 95 mg/dL Normal 65-99 [facility] Neurosurgery Office/Clinic N oteon 05-31-2023 Neurosurgery Office/Clinic Note Chief Complaint Back follow up-imaging review History of Present Illness Patient is a pleasant 47-year-old female with a history of fibromyalgia, insulin resistance, Vitamin D defiiciency, and Graves' disease, who presents to the outpatient neurosurgical clinic today accompanied by her mother, for follow up and imaging review on behalf of complaints of chronic low back pain. Patient states she has struggled with components of chronic low back pain for most of her adult life. She states this has historically been under moderate control with conservative management, but that she experienced an exacerbation in low back pain approximately 4-5 months ago without injury. Patient states symptoms have been stable in the past 3 months. Patient currently describes midline and bilateral lumbosacral pain that is constant, but is worse with prolonged sitting, prolonged standing/walking, and mechanical movement/use. She notes less prominent intermittent pain throughout the bilateral lower extremities, right greater than left, and a somewhat nonspecific/nondermato mal distribution. She also notes intermittent numbness/paresthesias throughout the lateral toes of the right foot. Patient denies proximal right lower extremity numbness/paresthesias and denies left lower extremity numbness or paresthesias. She denies motor weakness in the lower extremities, bowel/bladder incontinence, or saddle paresthesias. Patient reports components of coexisting chronic cervical and thoracic pain without recent change or worsening and without intractable pain. She denies radicular pain into the upper extremities or chest wall/thorax. She denies numbness or paresthesias in the upper extremities or chest wall/thorax. Patient denies motor weakness in the upper extremities, decreased dexterity, or chronic gait imbalance. Work up includes: MRI lumbosacral spine 02/15/2023: Multisegmental degenerative disc disease and facet arthropathy most advanced at L5-S1 with disc height collapse; central/left paracentral disc L5-S1 with left L5-S1 lateral recess stenosis CT lumbosacral spine 05/13/2023: No pars defects; advanced degenerative changes at L5-S1 with Modic changes in the endplates and vacuum disc phenomenon; degenerative changes of the bilateral SI joints Flexion/extension films lumbosacral spine 05/13/2023: Stable Scoliosis x-rays 05/13/2023: No significant disruption in sagittal balance Patient currently rates her pain at 6/10 on a standard pain scale. She estimates that 90% of her pain is attributable to axial lumbar pain with the remaining 10% being attributable to lower extremity symptoms. Patient states symptoms interrupt sleep and activity level/function. Patient denies physical therapy or healthcare market consultant. Her pain has been refractory to oral medication management including gabapentin, Cymbalta, NSAIDs, and muscle relaxers. In addition, she is established with pain management and has attempted injection modalities historically including, in the past year, bilateral L4-5 and L5-S1 RFA's 02/2022, caudal epidural injections 06/12/2022 and 08/10/2022, and bilateral SI injections 09/10/2022 and 01/10/2023. Patient reports that historically, lumbar RFA's have provided a notable degree of benefit. Physical Exam Additional Vitals No qualifying data available. General: [Alert and oriented, well nourished, no acute distress]. Eye: [normal conjunctiva, no scleral icterus]. HENT: [normocephalic, atraumatic, oral mucosa pink and moist, dentition intact]. Neck: [Supple]. Pulmonary: [non-labored respiration]. Cardiovascular: [no edema, strong pulses with rapid capillary refill]. Skin: [Normal temperature and texture; no rashes; no digit clubbing or cyanosis]. Psychiatric: [Appropriate judgment and insight, appropriate mood and affect]. On exam in the office, patient is seated comfortably in a chair and is non painful appearing. The thoracolumbar spine is without deformities. Diffuse trigger points are noted throughout the paravertebral musculature of the spinal axis, proximal upper extremities bilaterally, and hip/gluteal region/proximal lower extremities bilaterally consistent with underlying fibromyalgia; tenderness to palpation is also noted throughout the lumbar facet regions bilaterally; thoracolumbar spine is nontender to percussion. Bilateral sacroiliac regions are nontender to palpation. Range of motion restricted with increase in pain with flexion, extension, and facet loading maneuvers . No lumbar neurotension signs with negative straight leg raise, reverse straight leg raise, and femoral stretch test bilaterally. Bilateral hips are nontender to palpation with negative hip pointer signs. Muscle strength is 5 out of 5 and equal bilateral lower extremities. DTRs are 2/4 and equal bilateral lower extremities. No myelopathic features are noted. Gait is normal without significant antalgia and with full ability to toe and heel walk. Assessment/Plan 1. DDD (degenerative disc disease), lumbar 2. Low back pa (more content not included)... Normal [facility] XR Scoliosis Study 2 or 3 Vi ewson 05-15-2023 XR Scoliosis Study 2 or 3 Views Examination:XR Scoliosis Study 2 or 3 Views INDICATION:Other (please specify), low back pain COMPARISON:08/12/2020 lumbar spine x-ray. TECHNIQUE:Frontal and lateral projections of the spine are submitted. FINDINGS:There is no scoliotic curvature of the thoracic or lumbar spine. No definitive spondylolisthesis is appreciated. There is severe disc space narrowing at the lumbosacral junction. IMPRESSION: No scoliotic curvature of the thoracic or lumbar spine. Final Dictated by: Jeimy Rodriguez DO Dictated DT/TM: 05/15/2023 1:46 am Signed by: Jeimy Rodriguez DO Signed (Electronic Signature): 05/15/2023 1:48 am (If Report Is Signed, Electronically Signed in Other Vendor System) Normal [facility] CT Spine Lumbar w/o Contrast on 05-14-2023 CT Spine Lumbar w/o Contrast EXAM: CT Spine Lumbar w/o Contrast HISTORY: Other (please specify), Low back pain, symptoms persist with > 6wks conservative treatment COMPARISON: None. TECHNIQUE: Axial images were obtained through the lumbar vertebral column without contrast enhancement. Sagittal and coronal reformations were provided. FINDINGS: ALIGNMENT/BONY STRUCTURES: No CT evidence of an acute fracture or significant loss of vertebral body height. There is a mild grade 1 retrolisthesis of L5 on S1 which is presumably degenerative in etiology. Severe loss of disc space and vacuum disc phenomenon are seen at L5-S1. There is also endplate sclerosis and osteophyte formation at the L5-S1 level. CORD/CONUS: The cord and conus are poorly seen and not well evaluated on this noncontrast CT. OTHER SPINAL FINDINGS: None T12-L1: Unremarkable L1-L2: Unremarkable L2-L3: Unremarkable L3-L4: Unremarkable L4-L5: Unremarkable L5-S1: Disc bulging is eccentric and more pronounced laterally where there is associated endplate osteophyte. There is a small superimposed disc extrusion posteriorly, at and just to the left of midline. Disc material abuts the ventral thecal sac and asymmetrically encroaches the traversing left S1 nerve root. Moderate foraminal stenosis is also noted. NON SPINAL FINDINGS: None IMPRESSION: 1. Lumbar spondylosis. 2. There is a disc extrusion at L5-S1 which asymmetrically encroach is the traversing left S1 nerve root. Correlation with left S1 radiculopathy would be beneficial in confirming significance of this finding. 3. No high-grade spinal canal stenosis. 4. Foraminal narrowing is present at the L5-S1 level. Final Dictated by: Edmar Nath MD Dictated DT/TM: 05.14.2023 4:50 am Signed by: Edmar Nath MD Signed (Electronic Signature): 05.14.2023 4:58 am (If Report Is Signed, Electronically Signed in Other Vendor System) Normal [facility] XR Spine Lumbosacral Bending 2-3 Viewson 05-14-2023 XR Spine Lumbosacral Bending 2-3 Views Lumbar spine radiographs on 05/13/2023 Clinical History: Back pain Comparison: None Findings: 3 views of the lumbar spine were obtained. The vertebral body heights and alignment are within normal limits. No radiographic. Moderate to severe disc space narrowing and moderate endplate changes at L5-S1. Satisfactory range of motion in flexion and extension without pathologic motion. Impression: Moderate to severe disc space narrowing and moderate endplate changes at L5-S1 without radiographic signs of instability. Final Dictated by: Kanika Espitia MD Dictated DT/TM: 05/14/2023 12:03 pm Signed by: Nupur BEE, Kaniak Murphy Signed (Electronic Signature): 05/14/2023 12:05 pm (If Report Is Signed, Electronically Signed in Other Vendor System) [facility] Neurosurgery Office/Clinic Monica mcmahon 03-15-2023 Neurosurgery Office/Clinic Note Chief Complaint back consult History of Present Illness Patient is a pleasant 47-year-old female with a history of fibromyalgia, insulin resistance, Vitamin D defiiciency, and Graves' disease, who presents to the outpatient neurosurgical clinic today as a new patient, at the request of her treating pain management provider, Gt Lopez PA-C ([place] office), for consultation on behalf of complaints of chronic low back pain. Patient states she has struggled with components of chronic low back pain for most of her adult life. She states this has historically been under moderate control with conservative management, but that she experienced an exacerbation in low back pain approximately 3 months ago without injury. Patient states symptoms have been stable in the past 3 months. Patient currently describes midline and bilateral lumbosacral pain that is constant, but is worse with prolonged sitting, prolonged standing/walking, and mechanical movement/use. She notes less prominent intermittent pain throughout the bilateral lower extremities, right greater than left, and a somewhat nonspecific/nondermato mal distribution. She also notes intermittent numbness/paresthesias throughout the lateral toes of the right foot. Patient denies proximal right lower extremity numbness/paresthesias and denies left lower extremity numbness or paresthesias. She denies motor weakness in the lower extremities, bowel/bladder incontinence, or saddle paresthesias. Patient reports components of coexisting chronic cervical and thoracic pain without recent change or worsening and without intractable pain. She denies radicular pain into the upper extremities or chest wall/thorax. She denies numbness or paresthesias in the upper extremities or chest wall/thorax. Patient denies motor weakness in the upper extremities, decreased dexterity, or chronic gait imbalance. Patient currently rates her pain at 6/10 on a standard pain scale. She estimates that 90% of her pain is attributable to axial lumbar pain with the remaining 10% being attributable to lower extremity symptoms. Patient states symptoms interrupt sleep and activity level/function. Patient denies physical therapy or healthcare market consultant. Her pain has been refractory to oral medication management including gabapentin, Cymbalta, NSAIDs, and muscle relaxers. In addition, she is established with pain management and has attempted injection modalities historically including, in the past year, bilateral L4-5 and L5-S1 RFA's 02/2022, caudal epidural injections 06/12/2022 and 08/10/2022, and bilateral SI injections 09/10/2022 and 01/10/2023. Patient reports that historically, lumbar RFA's have provided a notable degree of benefit. PAST MEDICAL HISTORY: Insulin resistance Fibromyalgia Depression Anxiety Bipolar disorder GERD Graves' disease Vitamin D deficiency PAST SURGICAL HISTORY: Cholecystectomy Hysterectomy Left shoulder ALLERGIES: Augmentin: Swelling Latex: Skin blistering MEDICATIONS: See medication list SOCIAL HISTORY: Patient is single. She has no children. She lives independently in [place]. Patient denies nicotine or alcohol. She reports daily recreational marijuana use, but otherwise denies recreational drugs. Patient is currently unemployed. 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 Patient states no [place] of Workmen's Compensation or third-republic[employer] insurance claims based on today's office visit. FAMILY HISTORY: CAD: Father Review of Systems Constitutional: [No fevers, chills, sweats] Eye: [No recent visual problems] ENT: [No ear pain, sore throat, nasal congestion] Respiratory: [No shortness of breath, cough] Vascular: [No edema, erythema, discoloration] Cardiovascular: [No Chest pain, palpitations, syncope] Neuro: [No headaches, dizziness] Gastrointestinal: [No nausea, vomiting, diarrhea] Genitourinary: [No hematuria] Endocrine: [no polydipsia, polyphagia] Hematology: [no easy bruising, no bleeding tendencies] Physical Exam Vitals & Measurements HR: 66 (Peripheral) BP: 126/70 SpO2: 95 HT: 165 cm WT: 85.4 kg WT: 85.4 kg (Dosing) BMI: 31.37 Additional Vitals BP Position/Location: Sitting, Right arm GENERAL PHYSICAL EXAM: GENERAL: well developed, well nourished, no distress HEAD: normocephalic, atraumatic EYES: anicteric, atraumatic MUCOUS MEMBRANES: Moist, no evidence of dehydration NECK: supple, full range of motion, no deformity noted; no cervical adenopathy; no carotid bruits; no tracheal deviation; no winging of the scapula; no drooping of the shoulder; no evidence of neurotension signs such as Lhermitte's or Spurling sign CHEST: clear CARDIAC: normal heart sounds no murmurs or extra sounds SHOULDER: Full range of motion on active and passive evaluation; no evidence of impingement or rotator cuff tendinopathy, negative empty can testing. PERIPHERAL NERVES: no tinel's signs carpal, cubital, or peroneal, no digital compressi (more content not included)... Normal [facility] Provider Letteron 03-15-2023 Provider Letter Hitesh Obregon MD [address] [place] [address] Re: Lakia Talbert Date of Visit: 03/15/2023 Dear Hitesh Obregon, Thank you for allowing me to contribute to the care of your patient, Lakia Talbert. Attached is my office note and you will find my assessment and recommendations from our encounter today. Please do not hesitate to contact me with any questions or concerns. Sincerely, Tia Webb PA-C [facility] [place] [address] The following document(s) were included in the letter: March 15, 2023 12:49:11 EDT - (03/15/2023) Neurosurgery Office Visit Note Normal [facility] LITHIUMon 12-31-2021 Hixton (Eskalith(R)), Serum 0.5 mmol/L Normal 0.5-1.2 [facility] Comment on above: Result Comment: Plas ma concentration of 0.5 - 0.8 mmol/L are advised for long-term use; concentrations of up to 1.2 mmol/L may be necessary during acute treatment. Detection Limit = 0.1 <0.1 indicates None Detected Performed By: #### L ITHIUM ####[facility] [address] [address]DrMartín George FREE T3on 12-29-2021 FREE T3 2.57 pg/mlL Normal 2.18-3.[address] [facility] Comment on above: Performed By: #### T SH, FT3 #### [facility] [address] [address] V[place]ay Ariel FREE T4on 12-29-2021 Free T4 [Mass/Vol] 1.08 ng/dL Normal 0.76-1.[address] [facility] Comment on above: Performed By: #### F T4 ####[facility] [id number] [place] [address]Dr. Vijay George TSHon 12-29-2021 TSH 1.091 uIU/mL Normal 0.358-3.740 [facility] Comment on above: Performed By: #### T SH, FT3 ####[facility] [address] [place] [address]DrMartín Jazlynkale George LITHIUMon 10-01-2021 [place] (Eskalith(R)), Serum 0.4 mmol/L Critically low 0.5-1.2 [facility] Comment on above: Result Comment: Plas ma concentration of 0.5 - 0.8 mmol/L are advised for long-term use; concentrations of up to 1.2 mmol/L may be necessary during acute treatment. Detection Limit = 0.1 <0.1 indicates None Detected Performed By: #### L ITHIUM ####[facility] [address] [place] [id number]. Vijay George FREE T3on 09-29-2021 FREE T3 1.92 pg/mlL Critically low 2.18-3.98 The [facility] Comment on above: Performed By: #### T SH, FT3 ####[facility] [address]qbz[address] [place] [id number] Vijay Ariel FREE T4on 09-29-2021 Free T4 [Mass/Vol] 1.07 ng/dL Normal 0.76-1.[address] [facility] Comment on above: Performed By: #### F T4 ####[facility] [address]qjrjwfocy[address] [place] [id number] Vijay Ariel TSHon 09-29-2021 TSH 3.695 uIU/mL Normal 0.358-3.740 [facility] Comment on above: Performed By: #### T SH, FT3 ####[facility] [address] [place] [id number] George TSH RANGE SEE BELOW Normal [facility] Comment on above: Result Comment: <0.3 4 UIU/ml HYPERTHYROID 0.34-5.60 UIU/ml EUTHYROID >5.60 UIU/ml HYPOTHYROID Performed By: #### T SH, FT3 ####[facility] [address] [place] [id number] George LITHIUMon 07-02-2021 [place] (Eskalith(R)), Serum 0.8 mmol/L Normal 0.5-1.2 [facility] Comment on above: Result Comment: Plas ma concentration of 0.5 - 0.8 mmol/L are advised for long-term use; concentrations of up to 1.2 mmol/L may be necessary during acute treatment. Detection Limit = 0.1 <0.1 indicates None Detected Performed By: #### L ITHIUM #### [facility] [address] [address] [address] Vijay George CBC AUTO DIFFon 06-30-2021 BASO # 0.1 103/ul Normal 0.0-0.1 [facility] Comment on above: Performed By: #### C BC ####[facility] [address] [place] [address]DrMartín George Basophils/100 WBC (Bld) 1.0 % Normal 0.2-2.0 The [facility] Comment on above: Performed By: #### C BC ####[facility] [address]rehtgo[address] [place] [id number] George EO # 0.4 103/ul Normal 0.0-0.7 The [facility] Comment on above: Performed By: #### C BC ####[facility] Impe[address]wh[address] [place] [address]Dr. Vijay George Eosinophils/100 WBC (Bld) 5.5 % Normal 0.9-7.0 The [facility] Comment on above: Performed By: #### C BC ####[facility] [address] [place] [address]Dr. Vijay George Erythrocyte distribution width (RBC) [Ratio] 12.8 % Normal 11.0-15.0 [facility] Comment on above: Performed By: #### C BC ####[facility] [address] [place], [place] [address]Dr. Vijay George Hematocrit (Bld) [Volume fraction] 42.3 % Normal 36.0-48.0 [facility] Comment on above: Performed By: #### C BC ####[facility] Ikcpnkciv[address] [place], [place] [address]Dr. Vijay George Hemoglobin (Bld) [Mass/Vol] 13.1 g/dL Normal 12.0-16.0 [facility] Comment on above: Performed By: #### C BC ####[facility] [address] [place], [place] [address]Dr. Vijay George IG # 0.02 10e3/ul Normal 0.00-0.03 [facility] Comment on above: Performed By: #### C BC ####[facility] Un[address] [place], [place] [address]Dr. Vijay George IG % 0.2 % Normal 0.0-0.5 [facility] Comment on above: Performed By: #### C BC ####[facility] N[address] [place], [place] [address]Dr. Vijay George LYMPH # 1.6 103/ul Normal 1.2-3.8 The [facility] Comment on above: Performed By: #### C BC ####[facility] Lty[address]lsem[address] [place], [place] [address]Dr. Vijay George Lymphocytes/100 WBC (Bld) 19.4 % Critically low 20.5-60.0 [facility] Comment on above: Performed By: #### C BC ####[facility] [address] [place], [place] [address]Dr. Vijay George MANUAL DIFF REQ NO Normal [facility] Comment on above: Performed By: #### C BC ####[facility] Opvdotnwuf[address] [place] [id number]. Vijay Ariel MCH (RBC) [Entitic mass] 29.8 pg Normal 26.7-34.0 The [facility] Comment on above: Performed By: #### C BC ####[facility] [address]uvedb[address] [place] [id number]. Vijay George MCHC (RBC) [Mass/Vol] 31.0 g/dL Normal 29.9-35.2 The [facility] Comment on above: Performed By: #### C BC ####[facility] [address] [place] [address]Dr. Jazlynkale George MCV (RBC) [Entitic vol] 96.4 fL Normal 81.0-99.0 The [facility] Comment on above: Performed By: #### C BC ####[facility] [address] [place], [place] [address]Dr. Vijay George MONO # 0.5 103/ul Normal 0.3-0.8 The [facility] Comment on above: Performed By: #### C BC ####[facility] N[address] [place], [place] [address]Dr. Jazlynkale George Monocytes/100 WBC (Bld) 6.1 % Normal 1.7-12.0 The [facility] Comment on above: Performed By: #### C BC ####[facility] [address]un[address] [place], [place] [address]Dr. Vijay George NEUT # 5.4 103/ul Normal 1.4-6.5 The [facility] Comment on above: Performed By: #### C BC ####[facility] Ch[address] [place], [place] [address]Dr. Vijay George Neutrophils/100 WBC (Bld) 67.8 % Normal 43.0-75.0 The [facility] Comment on above: Performed By: #### C BC ####[facility] [address]uz[address] [place], [place] [address]Dr. Vijay George Platelet mean volume (Bld) [Entitic vol] 10.4 fL Normal 9.5-13.5 The [facility] Comment on above: Performed By: #### C BC ####[facility] [address] [place] [address]Dr. Jazlynkale Ariel PLT 313 103/ul Normal 150-450 The [facility] Comment on above: Performed By: #### C BC ####[facility] Evut[address]lwp[address] [place] [id number]. Vijay George RBC 4.39 106/ul Normal 4.20-5.40 The [facility] Comment on above: Performed By: #### C BC ####[facility] Tourspkudw[address] [place] [id number]. Vijay George WBC 8.0 103/ul Normal 4.0-11.0 [facility] Comment on above: Performed By: #### C BC ####[facility] [address]zf[address] [place] [address]Dr. Vijay George FREE T3on 06-30-2021 FREE T3 2.14 pg/mlL Critically low 2.77-5.27 [facility] Comment on above: Performed By: #### B MP, TSH, FT3, LIVER, LIPID #### [facility] [address] [address] [address] Vijay George FREE T4on 06-30-2021 Free T4 [Mass/Vol] 1.24 ng/dL Normal 0.78-2.[address] [facility] Comment on above: Performed By: #### V ITAD, FT4 ####[facility] [address] [place] [address]Dr. Vijay George GLYCOHEMOGLOBIN A1Con 2021 ADA RECOMMENDATION ADA THERAPEUTIC TARG ET 6.0 - 7.0 ACTION SUGGESTED > 7.0 Normal The [facility] Comment on above: Performed By: #### A 1C #### [facility] [address] [address] [address] Vijay George Glucose [Mass/Vol] 108 mg/dL Normal [facility] Comment on above: Performed By: #### A 1C #### [facility] [address] [address] [address] Vijay George HbA1c (Bld) [Mass fraction] 5.4 % Normal <=6.0 [facility] Comment on above: Performed By: #### A 1C #### [facility] [address] [place] [address] Dr. Vijay George LIPID PROFILEon 06-30-2021 CHOL-HDL RATIO NORM SEE BELOW Normal [facility] Comment on above: Result Comment: 3.3 - 4.4 LOW RISK 4.4 - 7.1 AVERAGE RISK 7.1 - 11.0 MODERATE RISK >11.0 HIGH RISK Performed By: #### B MP, TSH, FT3, LIVER, LIPID #### [facility] [address] [place] [address] Dr. Vijay George Cholesterol [Mass/Vol] 223 mg/dL Critically high <=200 [facility] Comment on above: Performed By: #### B MP, TSH, FT3, LIVER, LIPID #### [facility] [address] [place] [address] Dr. Vijay George Cholesterol in HDL [Mass/Vol] 56 mg/dL Normal [facility] Comment on above: Performed By: #### B MP, TSH, FT3, LIVER, LIPID #### [facility] [address] [place] [address] Dr. Vijay George Cholesterol in LDL [Mass/Vol] 115.8 mg/dL Normal [facility] Comment on above: Performed By: #### B MP, TSH, FT3, LIVER, LIPID #### [facility] [address] [place] [address] Dr. Vijay George Cholesterol.total/Ch olesterol in HDL [Mass ratio] 4.0 {ratio} Normal [facility] Comment on above: Performed By: #### B MP, TSH, FT3, LIVER, LIPID #### [facility] [address] [place] [address] Dr. Vijay George HDL NORMAL > or = 60 mg/dl - LO W CARDIOVASCULAR RISK <40 mg/dl - HIGH CARDIOVASCULAR RISK Normal [facility] Comment on above: Performed By: #### B MP, TSH, FT3, LIVER, LIPID #### [facility] [address] [address] [address] Vijay George LDL CALC NORMAL SEE BELOW Normal [facility] Comment on above: Result Comment: <100 mg/dl OPTIMAL 100 - 129 mg/dl NEAR OR ABOVE OPTIMAL 130 - 159 mg/dl BORDERLINE HIGH 160 - 189 mg/dl HIGH >190 mg/dl VERY HIGH Performed By: #### B MP, TSH, FT3, LIVER, LIPID #### [facility] [address] [address] [address] Vijay George Triglyceride [Mass/Vol] 256 mg/dL Critically high <=150 The [facility] Comment on above: Performed By: #### B MP, TSH, FT3, LIVER, LIPID #### [facility] [address] [address] [address] Vijay George VLDL CALC 51.2 mg/dL Normal [facility] Comment on above: Performed By: #### B MP, TSH, FT3, LIVER, LIPID #### [facility] [address] [address] [address] Vijay George LIVER PROFILEon 06-30-2021 Albumin [Mass/Vol] 4.0 g/dL Normal 3.5-5.0 [facility] Comment on above: Performed By: #### B MP, TSH, FT3, LIVER, LIPID #### [facility] [address] [address] [address] Vijay George Albumin/Globulin [Mass ratio] 1.0 {ratio} Normal [facility] Comment on above: Performed By: #### B MP, TSH, FT3, LIVER, LIPID #### [facility] [address] [address] [address] Vijay George ALP [Catalytic activity/Vol] 97 U/L Normal 38-126 [facility] Comment on above: Performed By: #### B MP, TSH, FT3, LIVER, LIPID #### [facility] [address] [address] [address] Vijay George ALT [Catalytic activity/Vol] 25 U/L Normal 9-52 [facility] Comment on above: Performed By: #### B MP, TSH, FT3, LIVER, LIPID #### [facility] [address] [place] [address] Dr. Vijay George AST [Catalytic activity/Vol] 21 U/L Normal 14-36 [facility] Comment on above: Performed By: #### B MP, TSH, FT3, LIVER, LIPID #### [facility] [address] [place] [address] Dr. Vijay George BILI, CONJUGATED 0.0 mg/dL Normal 0.0-0.3 [facility] Comment on above: Performed By: #### B MP, TSH, FT3, LIVER, LIPID #### [facility] [address] [place] [address] Dr. Vijay George Bilirubin [Mass/Vol] 0.2 mg/dL Normal 0.2-1.3 [facility] Comment on above: Performed By: #### B MP, TSH, FT3, LIVER, LIPID #### [facility] [address] [place] [address] Dr. Vijay George Globulin (S) [Mass/Vol] 4.2 g/dL Normal [facility] Comment on above: Performed By: #### B MP, TSH, FT3, LIVER, LIPID #### [facility] [address] [place] [address] Dr. Vijay George Protein [Mass/Vol] 8.2 g/dL Normal 6.1-8.[address] [facility] Comment on above: Performed By: #### B MP, TSH, FT3, LIVER, LIPID #### [facility] [address] [place] [address] Dr. Vijay George PROF CHEM 8 (BAS METB)on Anion gap [Moles/Vol] 10.1 mmol/L Normal [facility] Comment on above: Performed By: #### B MP, TSH, FT3, LIVER, LIPID #### [facility] [address] [place] [address] Dr. Vijay George Calcium [Mass/Vol] 9.7 mg/dL Normal 8.4-10.[address] [facility] Comment on above: Performed By: #### B MP, TSH, FT3, LIVER, LIPID #### [facility] [address] [address] [address] Vijay George Chloride [Moles/Vol] 101 mmol/L Normal 98-107 [facility] Comment on above: Performed By: #### B MP, TSH, FT3, LIVER, LIPID #### [facility] [address] [place] [address] Dr. Vijay George CO2 [Moles/Vol] 32.1 mmol/L Critically high 22.0-30.0 [facility] Comment on above: Performed By: #### B MP, TSH, FT3, LIVER, LIPID #### [facility] [address] [place] [address] Dr. Vijay George Creatinine [Mass/Vol] 0.82 mg/dL Normal 0.52-1.04 [facility] Comment on above: Performed By: #### B MP, TSH, FT3, LIVER, LIPID #### [facility] [address] [place] [address] Dr. Vijay George EGFR-AF PERUVIAN >60 Normal >=60 [facility] Comment on above: Performed By: #### B MP, TSH, FT3, LIVER, LIPID #### [facility] [address] [place] [address] Dr. Vijay George EGFR-NON AF PERUVIAN >60 Normal >=60 [facility] Comment on above: Performed By: #### B MP, TSH, FT3, LIVER, LIPID #### [facility] [address] [place] [address] Dr. Vijay George Glucose [Mass/Vol] 107 mg/dL Critically high 74-106 [facility] Comment on above: Performed By: #### B MP, TSH, FT3, LIVER, LIPID #### [facility] [address] [place] [address] Dr. Vijay George Potassium [Moles/Vol] 4.2 mmol/L Normal 3.4-5.0 [facility] Comment on above: Performed By: #### B MP, TSH, FT3, LIVER, LIPID #### [facility] [address] [address] [address] Vijay George Sodium [Moles/Vol] 139 mmol/L Normal 137-[address] [facility] Comment on above: Performed By: #### B MP, TSH, FT3, LIVER, LIPID #### [facility] [address] [address] [address] Vijay George Urea nitrogen [Mass/Vol] 15.0 mg/dL Normal 7.0-17.0 [facility] Comment on above: Performed By: #### B MP, TSH, FT3, LIVER, LIPID #### [facility] [address] [address] [address] Vijay George Urea nitrogen/Creatinine [Mass ratio] 18.3 mg/mg Normal [facility] Comment on above: Performed By: #### B MP, TSH, FT3, LIVER, LIPID #### [facility] [address] [address] [address] Vijay George TSHon 06-30-2021 TSH 7.199 uIU/mL Critically high 0.470-4.680 [facility] Comment on above: Performed By: #### B MP, TSH, FT3, LIVER, LIPID #### [facility] [address] [address] [address] Vijay George TSH RANGE SEE BELOW Normal [facility] Comment on above: Result Comment: <0.3 4 UIU/ml HYPERTHYROID 0.34-5.60 UIU/ml EUTHYROID >5.60 UIU/ml HYPOTHYROID Performed By: #### B MP, TSH, FT3, LIVER, LIPID #### [facility] [address] [address] [address] Vijay George VITAMIN D 25 OHon 06-30-2021 VIT D 25-OH 33.8 ng/mL Normal [facility] Comment on above: Performed By: #### V ITAD, FT4 ####[facility] [address] [place] [address]Dr. Vijay George VIT D RANGES SEE BELOW Normal [facility] Comment on above: Result Comment: <20 ng/mL Vit D deficient 20 - <30 ng/mL Vit D insufficient 30 - 100 ng/mL Vit D sufficient >100 ng/mL Potential Toxicity Performed By: #### V ITAD, FT4 ####[facility] [address] [place] [address]Dr. Vijay George PAP ACOG PANEL 2: 30 to 65on 06-06-2021 . . Normal [facility] Comment on above: Result Comment: Perf ormed at: WB Performed By: #### [id number] #### [facility] [address] [address] [address] Vijay George Age Gdln ACOG Testing 30-65 [facility] Comment on above: Performed By: #### [id number] #### [facility] [address] [address] [address] Vijay George DIAGNOSIS: Comment Normal [facility] Comment on above: Result Comment: NEGA TIVE FOR INTRAEPITHELIAL LESION OR MALIGNANCY. THIS SPECIMEN WAS RESCREENED PART OF OUR DIGITAL ASSOCIATE PROGRAM. Performed at: WB Performed By: #### [id number] #### [facility] [address] [address] [address] Vijay George HPV Aptima Negative Normal Negative [facility] Comment on above: Result Comment: This nucleic acid amplification test detects fourteen high-risk HPV types (16,18,31,33,35,39,45,51,52,56,58,59,66,68) without differentiation. Performed at: =G Performed By: #### [id number] #### [facility] [address] [address] [address] Vijay George Methodology: Comment Normal [facility] Comment on above: Result Comment: This liquid based ThinPrep(R) pap test was screened with the use of an image guided system. Performed at: WB Performed By: #### [id number] #### [facility] [address] [place] [address] Dr. Vijay George Note: Comment Normal [facility] Comment on above: Result Comment: The Pap smear is a screening test designed to aid in the detection of premalignant and malignant conditions of the uterine cervix. It is not a diagnostic procedure and should not be used as the sole means of detecting cervical cancer. Both false-positive and false-negative reports do occur. . Performed at: WB Performed By: #### [id number] #### [facility] [address] [address] [address] Vijay George Performed by: Comment Normal [facility] Comment on above: Result Comment: Kiah Salmeron, Compressor Engineer (ASCP) Performed at: WB Performed By: #### [id number] #### [facility] [address] [address] [address] Vijay George QC reviewed by: Comment Normal [facility] Comment on above: Result Comment: Urban Wetzel, Supervisory Compressor Engineer (ASCP) Performed at: WB Performed By: #### [id number] #### [facility] [address] [place] [address] Dr. Vijay George Specimen adequacy: Comment Normal [facility] Comment on above: Result Comment: Sati sfactory for evaluation. No endocervical component is identified. Performed at: WB Performed By: #### [id number] #### [facility] [address] [place] [address] Dr. Vijay George MRI LSPINE WO CONon 05-06-20 MRI LSPINE WO CON EXAMINATION: MRI LSPINE WO CON HISTORY: Degeneration of lumbar intervertebral disc COMPARISON: No relevant comparison available. TECHNIQUE: A variety of imaging planes and parameters were utilized for visualization of suspected pathology. FINDINGS: For the purposes of numbering, sagittal T2 image # 8 extends from the T11 vertebral body superiorly to the S3 level inferiorly. PARASPINAL AREA: Normal with no visible mass. BONES: Normal alignment of the lumbar spine with no acute fracture or spondylolisthesis CORD/CAUDA EQUINA: Normal caliber, contour, and signal intensity. DISC LEVELS: 12-L1: No significant disc/facet abnormality, spinal stenosis, or foraminal stenosis. L1-L2: No significant disc/facet abnormality, spinal stenosis, or foraminal stenosis. L2-L3: No significant disc/facet abnormality, spinal stenosis, or foraminal stenosis. L3-L4: No significant disc/facet abnormality, spinal stenosis, or foraminal stenosis. L4-L5: No significant disc/facet abnormality, spinal stenosis, or foraminal stenosis. L5-S1: Moderate to severe disc space narrowing with endplate sclerosis. Posterior central left paracentral disc herniation of the protrusion type measuring 2.3 cm at the base extending posteriorly up to 5.5 mm sagittal image #7, axial image #14. This effaces nerves in the left lateral recess. No foraminal stenosis. IMPRESSION: Moderate broad-based posterior central left paracentral disc herniation of the protrusion type effacing nerves in the left lateral recess without foraminal stenosis Electronically authenticated by: WAYNE KAPLAN Date: 2021-05-06 14:14 Normal [facility] MRI SHOULDER LT WO CONon MRI SHOULDER LT WO CON EXAMINATION: MRI SHOULDER LT WO CON HISTORY: Pain of left shoulder joint , chronic COMPARISON: No relevant comparison available. TECHNIQUE: A variety of imaging planes and parameters were utilized for visualization of suspected pathology. Imaging was performed without contrast. FINDINGS: ROTATOR CUFF REGION CUFF TENDONS: Minimal increased signal intensity in the supraspinatus tendon indicates tendon degeneration and/or tendinitis. No sean tear is seen. CUFF MUSCLES: Normal appearing muscles. DELTOID: Normal. No significant atrophy or tear. LONG BICEPS TENDON: Normal. No abnormal signal, attrition, or tear. LABRUM/BICEPS ANCHOR SUPERIOR: Tear. ANTERIOR/INFERIOR: Anterior tear. POSTERIOR: No posterior labrum abnormality. CAPSULE Normal. No visible capsular laxity or thickening. AC JOINT REGION AC JOINT: Mild osteoarthropathy with no significant narrowing of the underlying coracoacromial arch. AC LIGAMENTS: Normal acromioclavicular ligament. CC LIGAMENTS: Normal coracoclavicular ligaments. ACROMION: Mild lateral downsloping acromion process. SUBACROMIAL BURSA: Normal. No significant effusion. HYALINE CARTILAGE: Normal. No visible cartilage narrowing or focal defect. OTHER BONES: Normal proximal humerus, glenoid, and coracoid. OTHER OBSERVATIONS: Negative. No other significant findings or glenohumeral effusion. IMPRESSION: 1. Superior and anterior labral tear. 2. Mild strain of the supraspinatus tendon. 3. Mild degenerative changes of the acromioclavicular joint and slight lateral downsloping of the acromion process. Electronically authenticated by: THERESA HARRIS Date: 2021-05-06 14:52 Normal [facility] Vital Signs Date Time Vital Sign Value Performing Clinician Facility 08-19-2023 13:54-0400 Body height 167.6 cm Sonali Lopez PA Work Phone: [facility] 08-19-2023 13:54-0400 Body mass index (BMI) [Ratio] 31.96 kg/m2 Sonali Lopez PA Work Phone: [facility] 08-19-2023 13:54-0400 Body weight 89.81 kg Sonali Lopez PA Work Phone: [facility] 08-19-2023 13:54-0400 Diastolic blood pressure 79 mm[Hg] Sonali Lopez PA Work Phone: [facility] 08-19-2023 13:54-0400 Heart rate 71 /min Sonali Lopez PA Work Phone: [facility] 08-19-2023 13:54-0400 Respiratory rate 18 /min Sonali Lopez PA Work Phone: [facility] 08-19-2023 13:54-0400 SaO2% (BldA) [Mass fraction] 97 % Sonali Lopez PA Work Phone: [facility] 08-19-2023 13:54-0400 Systolic blood pressure 119 mm[Hg] Sonali Lopez PA Work Phone: [facility] 06-24-2023 12:18-0500 Diastolic blood pressure 80 mm[Hg] Sonali Lopez PA Work Phone: [facility] 06-24-2023 12:18-0500 Heart rate 67 /min Sonali Lopez PA Work Phone: [facility] 06-24-2023 12:18-0500 Respiratory rate 20 /min Sonali Ramenberg PA Work Phone: [facility] 06-24-2023 12:18-0500 Systolic blood pressure 124 mm[Hg] Sonali Lopez PA Work Phone: [facility] [employer] 05-22-2021 15:00-0500 Body height 167.64 cm Jose Alfredo Perez Other [employer] Other 05-22-2021 15:00-0500 Body mass index (BMI) [Ratio] 30.66 kg/m2 Jose Alfredo Perez Other [employer] Other 05-22-2021 15:00-0500 Body weight 86.18 kg Jose Alfredo Perez Other [employer] [facility] Other Encounters Encounter Date Encounter Type Care Provider Facility Start: 12-07-2023 End: 12-07-2023 ambulatory DEVIN PETTY Not Available Start: 11-30-2023 ambulatory Viral Rosario acility:[facility] Start: 11-01-2023 End: 11-01-2023 ambulatory ADORE MENDOZA Not Available Start: 10-29-2023 End: 10-29-2023 ambulatory Selma Olvera MD Facility:[facility] Start: 10-20-2023 End: 10-20-2023 ambulatory HITESH OBREGON Not Available Start: 10-19-2023 End: 10-19-2023 ambulatory Tia Webb PA-C Facility:[facility] Start: 10-01-2023 End: 10-01-2023 ambulatory Tia Webb PA-C Facility:[facility] Start: 09-13-2023 End: 09-13-2023 ambulatory Tia Webb PA-C Facility:[facility] Start: 09-04-2023 End: 09-04-2023 ambulatory ANURAG NAGY [facility] Start: 09-03-2023 End: 09-03-2023 ambulatory OTIS VAZQUEZ [facility] Start: 08-19-2023 End: 08-19-2023 ambulatory SONALI LOPEZ [facility] Start: 08-19-2023 End: 08-19-2023 Office outpatient visit 25 minutes Sonali LARSEN Work Phone: [facility] Comment on above: Lumbosacral spondylo sis without myelopathy (Primary Dx) Start: 07-23-2023 End: 07-23-2023 ambulatory [facility] Start: 07-23-2023 End: 07-23-2023 ambulatory [facility] Start: 07-19-2023 End: 07-19-2023 ambulatory LUZ MARIA CANTU [facility] Start: 07-10-2023 End: 07-10-2023 ambulatory ANURAG NAGY [facility] Start: 07-09-2023 End: 07-09-2023 ambulatory [facility] Start: 06-24-2023 End: 06-24-2023 Office outpatient visit 25 minutes Sonali LARSEN Work Phone: [facility] Comment on above: Lumbosacral spondylo sis without myelopathy (Primary Dx) Start: 06-24-2023 End: 06-24-2023 ambulatory SONALI LOPEZ [facility] Start: 06-09-2023 Telephone encounter Sonali LARSEN Work Phone: [facility] Start: 05-31-2023 End: 05-31-2023 ambulatory Tia Webb PA-C Facility:[facility] Start: 05-13-2023 End: 05-13-2023 ambulatory Tia Webb PA-C Facility:[facility] Start: 04-26-2023 End: 04-26-2023 ambulatory HITESH OBREGON Not Available Start: 03-15-2023 End: 03-15-2023 ambulatory Sonali Lopez PA-C Facility:[facility] Start: 12-29-2021 End: 12-30-[address] HITESH OBREGON Facility: Start: 09-29-2021 End: 09-30-[address] HITESH OBREGON Facility:[facility] Start: 07-04-2021 Encounter for genera l adult medical examination without abnormal findings DR HITESH OBREGON [facility] Start: 06-30-2021 End: 07-01-[address] HITESH OBREGON Facility:[facility] Start: 06-30-2021 End: 07-01-2021 Encounter for general adult medical examination without abnormal findings DR HITESH OBREGON Facility:[facility] Start: 06-02-2021 End: 06-02-[address] DEVIN PETTY Facility:[facility] Start: 05-22-2021 End: 05-22-2021 ambulatory Jose Alfredo Perez Other [facility] Other Start: 05-22-2021 Office outpatient ne w 30 minutes Jose Alfredo Perez [facility] Start: 05-06-2021 End: 05-07-[address] HITESH OBREGON Facility:[facility] Plan of Treatment Date Care Activity Detail Author Start: 08-18-2024 Adult BMI Screening Adult BMI Screen ing [facility] Start: 08-18-2024 Tobacco Screening Tobacco Screening [facility] Start: 06-24-2024 Tobacco Screening Tobacco Screening [facility] Start: 02-26-2024 Adult BMI Screening Adult BMI Screen ing [facility] Start: 02-26-2024 Tobacco Screening Tobacco Screening [facility] Start: 09-16-2023 End: 09-16-2023 Patient encounter procedure 09/16/2023 12:15 PM EDT Office Visit [facility] [address] [place] [id number] Sonali Lopez PA [address] [place] [address] [facility] Start: 09-03-2023 End: 09-03-2023 Admission to same day surgery center 09/03/2023 12:17 PM EDT - 09/03/2023 12:25 PM EDT Surgery [facility] [address] [place] [address] Otis Vazquez MD [address] [place] [address] INJECTION BLOCK NERVE MEDIAL BRANCH: left L45 51 [47375 (CPT )] [facility] Comment on above: INJECTION BLOCK NERV E MEDIAL BRANCH: left L45 51 [95375 (CPT )] Start: 09-03-2023 End: 09-03-2023 Njx dx/ther agt pvrt facet jt lmbr/sac 1 level INJECTION BLOCK NERVE MEDIAL BRANCH Lumbosacral spondylosis without myelopathy 09/03/2023 12:17 PM EDT [facility] Start: 09-03-2023 Subsequent hospital visit by physician 09/03/2023 12:17 PM EDT Hospital Encounter [facility] [address] [place] [phone] Otis Vazquez MD [address] [place], [place] [id number] [facility] Start: 08-19-2023 End: 08-19-2023 Patient encounter procedure 08/19/2023 1:30 PM EDT Office Visit [facility] [address] [facility] [phone] Sonali Lopez PA [address] [place] [address] [facility] Start: 07-23-2023 End: 07-23-2023 Admission to same day surgery center 07/23/2023 1:00 PM EST - 07/23/2023 1:12 PM EST Surgery [facility] [address] [place] [phone] Otis Vazquez MD [address] [place] [address] RADIOFREQUENCY ABLATION SPINAL: left L 4/5, 5/1 [59701 (CPT )] [facility] Comment on above: RADIOFREQUENCY ABLAT ION SPINAL: left L 4/5, 5/1 [50470 (CPT )] Start: 07-23-2023 End: 07-23-2023 Dstr nrolytc agnt parverteb fct sngl lmbr/sacral RADIOFREQUENCY ABLATION SPINAL Lumbosacral spondylosis without myelopathy 07/23/2023 1:00 PM EST [facility] Start: 07-23-2023 Subsequent hospital visit by physician 07/23/2023 1:00 PM EST Hospital Encounter [facility] [address] [place] [address] Otis Vazquez MD [address] [place] [address] [facility] Start: 07-09-2023 End: 07-09-2023 Admission to same day surgery center 07/09/2023 2:12 PM EST - 07/09/2023 2:24 PM EST Surgery [facility] [address] [place] [address] Otis Vazquez MD [address] [place] [address] RADIOFREQUENCY ABLATION SPINAL: right L 4/5, 5/1 [94460 (CPT )] [facility] Comment on above: RADIOFREQUENCY ABLAT ION SPINAL: right L 4/5, 5/1 [24921 (CPT )] Start: 07-09-2023 End: 07-09-2023 Dstr nrolytc agnt parverteb fct sngl lmbr/sacral RADIOFREQUENCY ABLATION SPINAL Lumbosacral spondylosis without myelopathy 07/09/2023 2:12 PM EST [facility] Start: 07-09-2023 Subsequent hospital visit by physician 07/09/2023 2:12 PM EST Hospital Encounter [facility] [address] [facility] [place] [phone] Otis Vazquez MD [address] [place] [address] [facility] Start: 01-22-2023 COVID-19 Vaccine ( season) COVID-19 Vaccine ( season) [facility] Start: 01-22-2023 Influenza vaccination Influenza Vacc ine [facility] Start: 09-08-1994 DTaP,Tdap and Td Vaccines (1 - Tdap) DTaP,Tdap and Td Vaccines (1 - Tdap) [facility] Start: 09-08-1993 Adult BMI Follow Up Plan Adult BMI F ollow Up Plan [facility] Start: 1987 Depression Screening Depression Scre [facility] Payers Date Payer Category Payer Self-pay 2022 Medicaid [facility] MEDICAID [facility]LY [facility] MEDICAID [id number] 2022-Present [address] [place] [address] [id number] 2022 Medicaid [id number] 2022 Unknown 1975 Unknown [id number] 2.16.840.1.946224.3.579.2.593 1975 Unknown [id number] 2.16.840.1.753635.3.579.2.593 1975 Unknown [id number] 2.16.840.1.044044.3.579.2.593 1975 Unknown [id number] 2.16.840.1.097255.3.579.2.593 1975 Unknown [id number] 2.16.840.1.367200.3.579.2.593 1975 Unknown [id number] 2.16.840.1.229081.3.579.2.1285 1975 Unknown [id number] 2.16.840.1.016314.3.579.2.1285 1975 Unknown [id number] 2.16.840.1.790640.3.579.2.1285 1975 Unknown [id number] 2.16.840.1.683182.3.579.2.1285 1975 Unknown [id number] 2.16.840.1.842453.3.579.2.1285 1975 Unknown [id number] 2.16.840.1.289056.3.579.2.1285 1975 Unknown [id number] 2.16840.1.418968.3.579.2.1285 1975 Unknown [id number] 2.16.840.1.196339.3.579.2.1285 1975 Unknown [id number] 2.16.840.1.448423.3.579.2.1285 1975 Unknown [id number] 2.16.840.1.967180.3.579.2.1285 1975 Unknown [id number] 2.16.840.1.806411.3.579.2.1285 1975 Unknown [id number] 2.16.840.1.099017.3.579.2.1285 1975 Unknown [id number] 2.16.840.1.089635.3.579.2.1285 1975 Unknown [id number] 2.16.840.1.659272.3.579.2. 1975 Unknown [id number] 2.16.840.1.828770.3.579.2. 1975 Unknown [id number] 2.16.840.1.395455.3.579.2.196 1975 Unknown [id number] 2.16.840.1.537530.3.579.2.196 1975 Unknown [id number] 2.16.840.1.203530.3.579.2.196 1975 Unknown [id number] 2.16.840.1.370938.3.579.2. 1975 Unknown [id number] 2.16.840.1.488555.3.579.2.196 1975 Unknown [id number] 2.16.840.1.680190.3.579.2.196 1975 Unknown [id number] 2.16.840.1.182040.3.579.2.9 1975 Unknown [id number] 2.16.840.1.725383.3.579.2.9 1975 Unknown [id number] 2.16.840.1.408199.3.579.2.9 1975 Unknown [id number] 2.16.840.1.431813.3.579.2.1259 1959 Unknown [id number] 2.16.840.1.543240.19 1959 Unknown [id number] Unknown [id number] 2.16.840.1.400025.3.579.2.531 Social History Date Type Detail Facility Start: 12-27-2019 End: 07-04-2020 Sex Assigned At [facility] Start: 08-07-2022 Tobacco smoking stat [facility] Never smoked tobacco [facility] Work Phone: Start: 08-07-2022 Tobacco use and exposure Smoke less tobacco non-user [facility] Start: 02-25-2023 End: 08-19-2023 Alcohol intake Ex-drinker (finding) [facility] Start: 12-27-2019 End: 07-04-2020 History of Social function [facility] Frequency of Alcohol Consumption Never [facility] Start: 1975 Sex Assigned At Not on file [facility] Clinical Notes 08-23-2015 to 08-19-2023 CHAVA Rose - 08/19/2023 1:30 PM EDTPatient InstructionsMattCHAVA Castellon - 06/24/2023 12:15 PM ESTPatient InstructionsTelephone Encounter - Mago Martinez - 06/09/2023 2:23 PM EST Note Date & Type Note Facility 08-19-2023 History of Presen t illness Narrative [facility] [address] [place] [address] Patient: Lakia Talbert Sex: female : 1975 Age: 47 y.o. PCP: HITESH OBREGON MD 08/19/2023 Lakia Talbert is here for a(n) post procedure follow up 07/09/23 Right L4/5, 5/1 RFA with 95% relief reported. . . Date of onset of pain: chronic , pain has lasted greater than 3 months. Pain scale before treatment: 9/10 Pre-op pain score: 9/10 Percentage of relief after and duration: 65% Pain scale after treatment: 4/0. Current pain on left side is 7-10/10 Chief Complaint Patient presents with Back Pain HPI: PT/HEP (for shoulder only 2021 back was >2013) no relief reported Back: 07/09/23 Right L4/5, 5/1 RFA with 95% relief reported. 07/14/21 Bilateral L4/5, 5/1 MBB w/ 85% relief x3 days bilateral L 4/5, 5/1 medial branch block on 08/08/21 with 85% relief. 02/27/22 Rt L 4/5 5/1 RFA w/100% relief 03/13/22 Lt L 4/5 5/1 RFA w/0% relief. Caudal on 06/05/2022 with 80% relief 08/07/22 Caudal with no relief 09/11/22 Sidney SI Inj w/100% relief for 1 week 01/15/23 Bilateral SI injection with no relief and ER visit that day. Back Pain This is a chronic problem. The current episode started more than 1 month ago. The problem occurs constantly. The problem has been gradually worsening (only on left side) since onset. The pain is present in the lumbar spine, sacro-iliac and gluteal (Sidney Hips). The quality of the pain is described as aching, shooting, stabbing and burning. Radiates to: bilateral lateral pain and n/t to sidney feet left greater than right. The pain is at a severity of 4/10 (left side 7-10/10). The pain is moderate. The pain is Worse during the day (worse depending on what she does). The symptoms are aggravated by bending, coughing, lying down, position, sitting, standing, stress and twisting (walking, staris, lifting, push/pull, cold/heat). Stiffness is present All day. Associated symptoms include leg pain (BLE), numbness (bilateral toes), tingling and weakness (BLE). Pertinent negatives include no bladder incontinence, bowel incontinence, chest pain or fever. (bilateral lateral pain and n/t to sidney feet left greater than right) Risk factors include poor posture, sedentary lifestyle, obesity and lack of exercise. Treatments tried: PT/HEP (for shoulder only 2021),Chiropractor min relief. Facets in [place] years ago with mod relief. NSAID (Naproxen) mod relief. Trazadone mild relief with sleep. Cymbalta with mild relief. Prednisone with mod relief. Ice/ heat short term min relief. The treatment provided moderate relief. The effect of pain on patient's ADLS: Moderate Impairment. Past Medical History: Diagnosis Date Anxiety Bipolar 1 disorder ([facility]) Chronic pain disorder DDD (degenerative disc disease), lumbar Depression Fibromyalgia GERD (gastroesophageal reflux disease) Graves disease Hiatal hernia Insulin resistance Low back pain Numbness and tingling Past Surgical History: Procedure Laterality Date CHOLECYSTECTOMY HYSTERECTOMY INJECTION BLOCK EPIDURAL CAUDAL STEROID N/A 08/07/2022 Performed by Otis Vazquez MD at [facility] INJECTION BLOCK EPIDURAL CAUDAL STEROID N/A 06/05/2022 Performed by Otis Vazquez MD at [facility] INJECTION BLOCK NERVE MEDIAL BRANCH: bilat L 4/5 5/ Bilateral 08/08/2021 Performed by Otis Vazquez MD at [facility] INJECTION BLOCK NERVE MEDIAL BRANCH: bilat L 4/5 5/ Bilateral 07/14/2021 Performed by Otis Vazquez MD at [facility] INJECTION BLOCK SACROILIAC JOINT Bilateral 01/15/2023 Performed by Otis Vazquez MD at [facility] INJECTION BLOCK SACROILIAC JOINT Bilateral 09/11/2022 Performed by Otis Vazquez MD at [facility] RADIOFREQUENCY ABLATION SPINAL: left L 4/5 5/1 Left 03/13/2022 Performed by Otis Vazquez MD at [facility] RADIOFREQUENCY ABLATION SPINAL: right L 4/5 5/1 Right 02/27/2022 Performed by Otis Vazquez MD at [facility] RADIOFREQUENCY ABLATION SPINAL: right L 4/5, 5/1 Right 07/09/2023 Performed by Otis Vazquez MD at [facility] SHOULDER SURGERY Left 2021 2021 Allergies Allergen Reactions Amoxicillin-Pot Clavulanate Swelling Latex Blister Family History Problem Relation Age of Onset Heart disease Father Social History Socioeconomic History Marital status: Spouse name: Not on file Number of children: Not on file Years of education: Not on file Highest education level: Not on file Occupational History Not on file Tobacco Use Smoking status: Never Smokeless tobacco: Never Vaping Use Vaping Use: Never used Substance and Sexual Activity Alcohol use: Not Currently Drug use: Yes Types: Marijuana Sexual activity: Defer Other Topics Concern Coffee Not Asked Tea Not Asked Carbonated Beverages Not Asked Chocolate Not Asked Social History Narrative Not on file Social Determinants of Health Financial Resource Strain: Not on file Food Insecurity: No Food Insecurity (08/19/2023) Hunger Screening Food Insecurity - Worry: Never True Food Insecurity - Inability: Never True Transportation Needs: Not on file Physical Activity: Not on file Stress: Not on file Social Connections: Not on file Interpersonal Safety: Not on file Housing Instability: Not on file Review of Systems Constitutional: Negative. Negative for chills, fatigue and fever. HENT: Negative. Eyes: Negative. Respiratory: Negative. Negative for cough and shortness of breath. Cardiovascular: Negative. Negative for chest pain. Gastrointestinal: Negative. Negative for bowel incontinence. IBS Endocrine: Negative. Genitourinary: Negative. Negative for bladder incontinence. Musculoskeletal: Positive for back pain. Negative for gait problem. Skin: Negative. Negative for rash and wound. Allergic/Immunologic: Negative. Neurological: Positive for tingling, weakness (BLE) and numbness (bilateral toes). Hematological: Negative. Psychiatric/Behavioral: Negative. Negative for self-injury and suicidal ideas. Vital Signs: BP 119/79 Pulse 71 Resp 18 Ht 167.6 cm (5' 6 ) Wt 89.8 kg (198 lb) SpO2 97% BMI 31.96 kg/m Physical Exam: GENERAL - Healthy patient that appears stated age. HEENT - Normocephalic / Atraumatic, Extraoccular movements intact, trachea midline, thyroid within normal limits. CV - pulse regular, Warm extremities with appropriate color of nailbeds. RESP - No obvious wheezing, No Shortness of Breath, No overexertion response to exam maneuvers. COORDINATION - remains intact. PSYCH - Alert and Oriented x4, Attentive and appropriate, constitutionally normal, displays normal mood and affect per situation, answered questions appropriately during examination, demonstrated appropriate attention during discussion, demonstrated appropriate cognitive reasoning and understanding of the medical condition by asking appropriate questions regarding the diagnosis and risks/benefits/alternatives of treatment modalities. No obvious deficits in memory, reasoning, or intellect. Lumbar: SKIN - No rashes or bruising in the area of the patient s pain. LYMPH NODES - demonstrate no obvious enlargement. EXTREMITIES - Lower extremities are warm, with minimal edema and palpable pulses. Tenderness to palpation noted in the left lumbar spine and paraspinal musculature. Pain is elicited with flexion, extension, and lateral rotation of the left lumbar spine. Range of motion is diminished with these motions due to pain. Facet palpation is noted to be painful and facet loading maneuvers elicit pain that is concordant with the patient s normal pain complaints. Some muscle spasm is noted in the overlying musculature. STRENGTH - noted to be 5 out of 5 all muscle groups bilateral lower extremities including muscles involving hip flexion and abduction, knee flexion and extension, as well as foot dorsiflexion and plantarflexion. No notable atrophy, fasciculations or spasm. SENSORY - No notable sensory deficits in the bilateral lower extremities to touch or pinprick in all dermatomal distributions. Straight Leg Raise is negative bilaterally. Gait is normal. Assessment/Treatment Plan: Lakia was seen today for back pain. Diagnoses and all orders for this visit: Lumbosacral spondylosis without myelopathy - Case request operating room: INJECTION BLOCK NERVE MEDIAL BRANCH: left L45 51 Left L4/5, 5/1 Facet Injection/Medial Branch Block - under fluoroscopy It is hopeful that the described procedure will provide symptomatic pain relief. It is felt to be medically necessary noting that the patient has tried and failed more conservative modalities of therapy and this is the next most appropriate step. The procedure was described in detail to the patient as well as the potential benefits of pain reduction alongside risks of the procedure and alternatives. Risks were described as including, but not limited to bleeding, infection, nerve damage, spinal cord injury, paralysis, stroke, dural puncture headache, and medication reaction. The patient expressed understanding regarding the risks and benefits and wishes to proceed. Diagnostic facet injections and medial branch blocks should provide information to confirm that the noted facet arthropathy is the patient s most significant pain generator. If this provides significant but only temporary pain relief, the patient may in the future be a candidate for radiofrequency denervation of the facet joints to provide pain relief for approximately 1 year. Follow up 2 weeks after procedure The medications I have prescribed have been reviewed for medication interactions/contraindications and/or for upcoming procedures: continue current medication regimen without any changes. DISCUSSION: Treatment options discussed with patient and all questions answered to patient's satisfaction. Discussed the rules and regulations surrounding prescription of opioids and compliance at length. Failure to follow the rules and regulation will result in tapering and discontinuation of medications if applicable. Prescribed medication that requires intensive monitoring for toxicity We do not currently prescribe any controlled substance from this practice. It appears that the patient's previous pain is under adequate control with the previous procedure. At this point, we will continue to monitor these symptoms and turn our immediate attention to the more painful complaint that was discussed today. It does appear that is it the new primary pain complaint and the patient would likely benefit from a procedure as treatment for this complaint as well. The spine model was demonstrated and MRI was reviewed and used to explain the condition. Chronic conditions not treated during this visit that affected my overall medical decision making: Comorbidity- Obesity The patient does have a comorbid condition of obesity. This will be taken into account in that obesity will contribute to certain pain conditions. It can contribute to pain from degenerative disc disease as well as osteoarthritis of the joints. Many neuropathic symptoms are also amplified due to axial spine loading. Special benefits will also need to be given to procedures. Many procedures are technically more difficult in the light of severe obesity. I will also consider the possibility of undiagnosed obstructive sleep apnea (which often accompanies obesity) when prescribing any narcotic medications. I will weigh the risks and benefits and fully discuss them with the patient for these reasons. Comorbidity- Diabetes The patient has a history of diabetes mellitus currently managed with medications. This will need to be considered prior to any procedure that would require the injection of steroid in that the patient may experience a transient increase in glucose as a result. Additional consideration will need to be given to timing the procedure early in the morning in that the patient will need to be fasting prior to the administration of anesthesia. Every effort will be made to perform the procedure as a 1st case due to this condition. And the patient will be instructed to hold their diabetic medications on that morning. If necessary, a blood glucose test can also be performed that morning. The risks/ benefits/ and alternatives will be weighed and explained to the patient prior to any procedure. Comorbidity- Latex allergy OARRS: Reviewed. Scribe Statement: Scribed for and in the presence of CHAVA ROSE by Jeimy Suero CNA. Provider Statement: I, CHAVA ROSE, personally performed the services described in the documentation, as scribed by Jeimy Suero CNA in my presence, and it is both accurate and complete. Jeimy Suero CNA 08/19/23 1428 CHAVA Rose 08/19/23 1517 documented in this encounter [facility] 08-19-2023 Instructions Jeimy Suero CNA - 08/19/2023 1:30 PM EDT Facet Injection / Medial Branch Block (MBB) / Sacroiliac (SI) Joint Injection A facet injection and sacroiliac joint injection are injections of local anesthetic and steroid into a joint in the spine. A medial branch block is similar, but the medication is placed outside the joint space near the nerve that supplies the joint called the medial branch (steroid may or may not be used). You may require multiple injections depending upon how many joints are involved. How Long Will This Procedure Last? The extent and duration of pain relief may depend on the amount of inflammation and how many areas are involved. Other coexisting factors may be responsible for your pain. If your pain goes away for a short time, but then returns, you may be a candidate for radiofrequency ablation (RFA). Activity Be active. Attempt activities and movements that typically cause pain to see if it feels better while doing them. We will give you a pain diary. Please fill this out as directed by your nurse in pre-op. This will help your doctor determine the effectiveness of the injection, and how to proceed. Bring the pain diary with you to your follow-up appointment. Medications You should not take your pain medications for 4-6 hours before or after the injection in order to properly diagnose if the injection provides adequate relief. Resume your routine medications after your procedure. You may resume blood thinners per your regular schedule after the procedure. If you received sedation: If you received sedation for your procedure, you may feel sleepy or not yourself for several hours today. For the next 24 hours avoid activities that requires alertness or coordination. This includes: Driving or operating heavy machinery Using power tools Consuming alcohol Do not make important or complex decisions or sign legal documents in the next 24 hours. Other Instructions: If you feel severe pain at the injection site with swelling and redness, increased leg weakness, a fever of 101 or higher, headache (or worsening headache), changes in vision or urinary retention: Please call the office at , or have someone take you to the nearest emergency room. Tell the emergency room staff that you recently had a spine injection. A doctor must evaluate you for bleeding and injection complications. If you lose control over bowel, bladder, or legs: Go to the nearest emergency room. documented in this encounter [facility] 06-24-2023 History of Presen t illness Narrative [facility] [address] [place] [address] Patient: Lakia Talbert Sex: female : 1975 Age: 47 y.o. PCP: HITESH OBREGON MD 06/24/2023 Lakia Talbert is here for a follow up after seeing neurosurgeon in [place]. Patient reports he recommended repeat Lumbar RFA. Chief Complaint Patient presents with Back Pain HPI: PT/HEP (for shoulder only 2021 back was >2012) no relief reported Back: 07/14/21 Bilateral L4/5, 5/1 MBB w/ 85% relief x3 days bilateral L 4/5, 5/1 medial branch block on 08/08/21 with 85% relief. 02/27/22 Rt L 4/5 5/1 RFA w/100% relief 03/13/22 Lt L 4/5 5/ RFA w/0% relief. Caudal on 06/05/2022 with 80% relief 08/07/22 Caudal with no relief 09/11/22 Sidney SI Inj w/100% relief for 1 week 01/15/23 Bilateral SI injection with no relief and ER visit that day. Back Pain This is a chronic problem. The current episode started more than 1 month ago. The problem occurs constantly. The problem has been gradually worsening since onset. The pain is present in the lumbar spine, sacro-iliac and gluteal (Sidney Hips). The quality of the pain is described as aching, shooting, stabbing and burning. Radiates to: left leg sometimes depending on activity. Pain scale: 4/10 now but does increase to 7/10 for various reasons. Feels relief with laying down flat. The pain is moderate. The pain is Worse during the day (worse depending on what she does). The symptoms are aggravated by bending, coughing, lying down, position, sitting, standing, stress and twisting (walking, staris, lifting, push/pull, cold/heat). Stiffness is present All day. Associated symptoms include leg pain (BLE), numbness (bilateral toes) and weakness (BLE). Pertinent negatives include no bladder incontinence, bowel incontinence, chest pain or fever. Risk factors include poor posture, sedentary lifestyle, obesity and lack of exercise. Treatments tried: PT/HEP (for shoulder only 2021),Chiropractor min relief. Facets in [place] years ago with mod relief. NSAID (Naproxen) mod relief. Trazadone mild relief with sleep. Cymbalta with mild relief. Prednisone with mod relief. Ice/ heat short term min relief. The treatment provided moderate relief. The effect of pain on patient's ADLS: Moderate Impairment. Past Medical History: Diagnosis Date Anxiety Bipolar 1 disorder ([facility]) Chronic pain disorder DDD (degenerative disc disease), lumbar Depression Fibromyalgia GERD (gastroesophageal reflux disease) Graves disease Hiatal hernia Insulin resistance Low back pain Numbness and tingling Past Surgical History: Procedure Laterality Date CHOLECYSTECTOMY HYSTERECTOMY INJECTION BLOCK EPIDURAL CAUDAL STEROID N/A 08/07/2022 Performed by Otis Vazquez MD at [facility] INJECTION BLOCK EPIDURAL CAUDAL STEROID N/A 06/05/2022 Performed by Otis Vazquez MD at [facility] INJECTION BLOCK NERVE MEDIAL BRANCH: bilat L 4/5 5/1 Bilateral 08/08/2021 Performed by Otis Vazquez MD at [facility] INJECTION BLOCK NERVE MEDIAL BRANCH: bilat L 4/5 5/1 Bilateral 07/14/2021 Performed by Otis Vazquez MD at [facility] INJECTION BLOCK SACROILIAC JOINT Bilateral 01/15/2023 Performed by Otis Vazquez MD at [facility] INJECTION BLOCK SACROILIAC JOINT Bilateral 09/11/2022 Performed by Otis Vazquez MD at [facility] RADIOFREQUENCY ABLATION SPINAL: left L 4/5 5/1 Left 03/13/2022 Performed by Otis Vazquez MD at [facility] RADIOFREQUENCY ABLATION SPINAL: right L 4/5 5/1 Right 02/27/2022 Performed by Otis Vazquez MD at [facility] SHOULDER SURGERY Left 2021 2021 Allergies Allergen Reactions Amoxicillin-Pot Clavulanate Swelling Latex Blister Family History Problem Relation Age of Onset Heart disease Father Social History Socioeconomic History Marital status: Spouse name: Not on file Number of children: Not on file Years of education: Not on file Highest education level: Not on file Occupational History Not on file Tobacco Use Smoking status: Never Smokeless tobacco: Never Vaping Use Vaping Use: Never used Substance and Sexual Activity Alcohol use: Not Currently Drug use: Yes Types: Marijuana Sexual activity: Defer Other Topics Concern Coffee Not Asked Tea Not Asked Carbonated Beverages Not Asked Chocolate Not Asked Social History Narrative Not on file Social Determinants of Health Financial Resource Strain: Not on file Food Insecurity: No Food Insecurity (06/24/2023) Hunger Screening Food Insecurity - Worry: Never True Food Insecurity - Inability: Never True Transportation Needs: Not on file Physical Activity: Not on file Stress: Not on file Social Connections: Not on file Interpersonal Safety: Not on file Housing Instability: Not on file Review of Systems Constitutional: Negative. Negative for chills, fatigue and fever. HENT: Negative. Eyes: Negative. Respiratory: Negative. Negative for cough and shortness of breath. Cardiovascular: Negative. Negative for chest pain. Gastrointestinal: Negative. Negative for bowel incontinence. IBS Endocrine: Negative. Genitourinary: Negative. Negative for bladder incontinence. Musculoskeletal: Positive for back pain. Negative for gait problem. Skin: Negative. Allergic/Immunologic: Negative. Neurological: Positive for weakness (BLE) and numbness (bilateral toes). Hematological: Negative. Psychiatric/Behavioral: Negative. Vital Signs: BP 124/80 (BP Site: Left Arm, BP Postition: Sitting) Pulse 67 Resp 20 Physical Exam: GENERAL - Healthy patient that appears stated age. HEENT - Normocephalic / Atraumatic, Extraoccular movements intact, trachea midline, thyroid within normal limits. CV - pulse regular, Warm extremities with appropriate color of nailbeds. RESP - No obvious wheezing, No Shortness of Breath, No overexertion response to exam maneuvers. COORDINATION - remains intact. PSYCH - Alert and Oriented x4, Attentive and appropriate, constitutionally normal, displays normal mood and affect per situation, answered questions appropriately during examination, demonstrated appropriate attention during discussion, demonstrated appropriate cognitive reasoning and understanding of the medical condition by asking appropriate questions regarding the diagnosis and risks/benefits/alternatives of treatment modalities. No obvious deficits in memory, reasoning, or intellect. Lumbar: SKIN - No rashes or bruising in the area of the patient s pain. LYMPH NODES - demonstrate no obvious enlargement. EXTREMITIES - Lower extremities are warm, with minimal edema and palpable pulses. Tenderness to palpation noted in the lumbar spine and paraspinal musculature. Pain is elicited with flexion, extension, and lateral rotation of the lumbar spine. Range of motion is diminished with these motions due to pain. Facet palpation is noted to be painful and facet loading maneuvers elicit pain that is concordant with the patient s normal pain complaints. Some muscle spasm is noted in the overlying musculature. STRENGTH - noted to be 5 out of 5 all muscle groups bilateral lower extremities including muscles involving hip flexion and abduction, knee flexion and extension, as well as foot dorsiflexion and plantarflexion. No notable atrophy, fasciculations or spasm. SENSORY - No notable sensory deficits in the bilateral lower extremities to touch or pinprick in all dermatomal distributions. Straight Leg Raise is negative bilaterally. Tenderness to palpation is noted over the Bilateral SacroIliac Joint: Fabere sign (Salinas's Test) is significantly positive, as is compression and distraction of the sacroiliac joints, which is consistent with some of the patient's normal pain. Gait is normal. Assessment/Treatment Plan: Lakia was seen today for back pain. Diagnoses and all orders for this visit: Lumbosacral spondylosis without myelopathy - Case request operating room: RADIOFREQUENCY ABLATION SPINAL: right L45 51 - Case request operating room: RADIOFREQUENCY ABLATION SPINAL: left L45 51 Right then Left L4/5, 5/1 Facet Radiofrequency Ablation - under fluoroscopy It is hopeful that the described procedure will provide symptomatic pain relief. It is felt to be medically necessary noting that the patient has tried and failed more conservative modalities of therapy and this is the next most appropriate step. The procedure was described in detail to the patient as well as the potential benefits of pain reduction alongside risks of the procedure and alternatives. Risks were described as including, but not limited to bleeding, infection, nerve damage, spinal cord injury, paralysis, stroke, dural puncture headache, and medication reaction. The patient expressed understanding regarding the risks and benefits and wishes to proceed. The patient has undergone diagnostic injections targeting the above mentioned facet joints. There was significant improvement in the patient s pain and functionality for the duration of the local anesthetic (approximately 2 hours) with return of the original symptoms after that time. For this reason, it is felt that the patient is a good candidate to undergo thermal Radio Frequency Lesioning of the Medial Branch Nerves at 80 degrees celsius for 90 seconds. This will effectively denervate the arthritic facet joints previously targeted with the diagnostic injection. It is noted that the procedure often requires 3-4 weeks to provide benefit, but the benefit usually lasts for approximately 1 year and can then be repeated if necessary. Patients undergoing this procedure often have mild post-procedural pain for 3-4 days which is generally relieved with application of heat and over the counter pain relievers. Follow up 4 weeks after procedure The medications prescribed have been reviewed for medication interactions/contraindications and/or for upcoming procedures: continue current medication regimen without any changes. DISCUSSION: Treatment options discussed with patient and all questions answered to patient's satisfaction. Discussed the rules and regulations surrounding prescription of opioids and compliance at length. Failure to follow the rules and regulation will result in tapering and discontinuation of medications if applicable. Prescribed medication that requires intensive monitoring for toxicity We do not currently prescribe any controlled substance from this practice. Treatment plans discussed but not opted for at this time: SI joint injections. Patient would like to proceed with the current outlined treatment plan before moving forward with any other options. It is noted that the patient did have good response from the previously performed procedure. It is felt that the patient would benefit from an additional procedure of the same nature in that the same symptoms have returned. It is hopeful that this additional injection will provide additional benefit and duration when combined with the previous injection. The spine model was demonstrated and MRI was reviewed and used to explain the condition. Chronic conditions not treated during this visit that affected my overall medical decision making: Comorbidity- Obesity The patient does have a comorbid condition of obesity. This will be taken into account in that obesity will contribute to certain pain conditions. It can contribute to pain from degenerative disc disease as well as osteoarthritis of the joints. Many neuropathic symptoms are also amplified due to axial spine loading. Special benefits will also need to be given to procedures. Many procedures are technically more difficult in the light of severe obesity. I will also consider the possibility of undiagnosed obstructive sleep apnea (which often accompanies obesity) when prescribing any narcotic medications. I will weigh the risks and benefits and fully discuss them with the patient for these reasons. Comorbidity- Diabetes The patient has a history of diabetes mellitus currently managed with medications. This will need to be considered prior to any procedure that would require the injection of steroid in that the patient may experience a transient increase in glucose as a result. Additional consideration will need to be given to timing the procedure early in the morning in that the patient will need to be fasting prior to the administration of anesthesia. Every effort will be made to perform the procedure as a 1st case due to this condition. And the patient will be instructed to hold their diabetic medications on that morning. If necessary, a blood glucose test can also be performed that morning. The risks/ benefits/ and alternatives will be weighed and explained to the patient prior to any procedure. OARRS: Reviewed. Scribe Statement: Scribed for and in the presence of CHAVA ROSE by Jeimy Suero CNA. Provider Statement: I, CHAVA ROSE, personally performed the services described in the documentation, as scribed by Jeimy Suero CNA in my presence, and it is both accurate and complete. Jeimy Suero CNA 06/24/23 1257 CHAVA Rose 07/01/23 0934 documented in this encounter [facility] 06-24-2023 Instructions Jeimycindy Suero CNA - 06/24/2023 12:15 PM EST Radiofrequency Ablation (RFA) Radiofrequency ablation (or RFA) is a procedure used to reduce pain. An electrical current produced by a radio wave is used to heat up a small area of nerve tissue, thereby decreasing pain signals from that specific area. Which Conditions Are Treated With Radiofrequency Ablation? RFA can be used to help patients with chronic (long-lasting) back and neck pain and pain related to the degeneration of joints from arthritis. How Long Does Pain Relief from Radiofrequency Ablation Last? The degree of pain relief varies, depending on the cause and location of the pain. Pain relief from RFA can last from six to 12 months and in some cases, relief can last for years. More than 70% of patients treated with RFA experience pain relief. Is Radiofrequency Ablation Safe? RFA has proven to be a safe and effective way to treat some forms of pain. It also is generally well-tolerated, with very few associated complications. There is a slight risk of infection and bleeding at the insertion site. Your doctor can advise you about your particular risk. Can I Resume My Normal Activities After Radiofrequency Ablation? You will have a few restrictions immediately following radiofrequency ablation: Do not drive or operate machinery for at least 24 hours after the procedure. You may resume your normal diet and prescribed medications (including blood thinners) when you get home. Do not engage in any strenuous activity for the first 24 hours after the procedure. You may remove any bandages in the evening before going to bed. You may experience the following effects after RFA: Leg numbness: If you have any leg numbness, walk only with assistance. This should only last a few hours and is due to the local anesthesia given during the procedure. Mild back discomfort: This may occur when the local anesthetic wears off and usually lasts two or three days. Apply heat to the area the day of the procedure and the day after the procedure. You may also use your usual pain medications and NSAID medications such as ibuprofen, naproxen, Aleve, Motrin, etc. if you are able. Expectations: Results will be gradual. It may take 3-4 weeks for full relief. If you feel severe pain at the injection site with swelling and redness, increased leg weakness, a fever of 101 or higher, headache (or worsening headache), changes in vision or urinary retention: Please call the office at , or have someone take you to the nearest emergency room. Tell the emergency room staff that you just had RFA. A doctor must evaluate you for bleeding and injection complications. If you lose control over bowel, bladder, or legs: Go to the nearest emergency room. If you are diabetic, the steroids used in this procedure can increase your blood sugar. If your blood sugar is 250mg/dL or higher, contact your primary care physician, or the doctor who manages your diabetes, to discuss how to get it back to normal. documented in this encounter [facility] 06-09-2023 Miscellaneous Notes Returned patient's call. She wanted an appointment for another round of nerve rodriguez. No answer. Full voicemail. documented in this encounter [facility] 06-09-2023 Telephone encounter Note Returned patient's call. She wanted an appointment for another round of nerve rodriguez. No answer. Full voicemail. 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 She says she has had a lumbar disc displacement for several years. She also carries a diagnosis of fibromyalgia. I have independently reviewed the MRI of the lumbar spine and the report and the plain x-ray. This patient has a small left disc displacement L5-S1 with some degenerative changes she complains of bilateral leg pain I do not believe that this would result from the MRI that I see. I think this is best treated with pain management I have discussed this with her in detail she understands and agrees and we will refer her to the [facility]. Apr, Degeneration of intervertebral disc at L5-S1 level (ICD-10 - M51.37) [facility] Other 04-01-2016 History general Narrative - Reported* Type Description Date Medical History graves disease Medical History acid reflux Medical History anxiety Medical History 08/23/2015 EGD/Colon oscopy-tiny hiatal hernia, noraml colonoscopy,hemorrhoids Medical History fibromyalgia Surgical History cholecystectomy Surgical History hysterectomy Hospitalization History see above [employer] [facility]) Other evaluation note* Diagnosis Lumbosacral spondylosis without myelopathy- Primary Lumbosacral spondylosis without myelopathy- Primary Lumbosacral spondylosis without myelopathy Lumbosacral spondylosis without myelopathy documented in this encounter [facility] [employer] System[facility] note* Diagnosis Lumbosacral spondylosis without myelopathy- Primary Lumbosacral spondylosis without myelopathy- Primary Lumbosacral spondylosis without myelopathy documented in this encounter [facility] How To SystemInstructionsNot on filedocumented in this [facility] Reason for Referral Reason Evaluate and Tr eat Diagnosis 1 Degeneration of inte rvertebral disc at L5-S1 level (M51.37) Referral Organization [facility] Referring Provider First Name Jose Alfredo Referring Provider Last Name Chris Referring Provider Specialty Neurologica l Surgery Referred Organization [facility] Referred Provider Jr. Vazquez William Referred Address [address],[place], [place],[address] Referred Provider Specialty Pain Medicin e Referral Priority Routine General Notes Candi Cherelle M 022 10:15:22 AM >Received today and waiting for office notes to be locked before sending Specialty Diagnoses / Procedures Referred By Zaire flores Referred To Contact Diagnoses Lumbosacral spondylosis without myelopathy Procedures Case request operating room: RADIOFREQUENCY ABLATION SPINAL: left L45 [address] Sonali Lopez, [facility] [address], [address] [place] [address] Referral ID Status Reason Start Date Expiration Date V isits Requested Visits Authorized [id number] Pending Review 06/24/2023 06/23/2024 1 1 Specialty Diagnoses / Procedures Referred By Zaire flores Referred To Contact Diagnoses Lumbosacral spondylosis without myelopathy Procedures Case request operating room: RADIOFREQUENCY ABLATION SPINAL: right L45 [address] Sonali Lopez, [place] [address], [address] [place] [id number] Referral ID Status Reason Start Date Expiration Date V isits Requested Visits Authorized [id number] Pending Review 06/24/2023 06/23/2024 1 1 Specialty Diagnoses / Procedures Referred By Zaire flores Referred To Contact Diagnoses Lumbosacral spondylosis without myelopathy Procedures Case request operating room: INJECTION BLOCK NERVE MEDIAL BRANCH: left L45 [address] Sonali Lopez, [facility] [address] [place] [address] Referral ID Status Reason Start Date Expiration Date V isits Requested Visits Authorized [id number] Pending Review 08/19/2023 08/18/2024 1 1 Summary Purpose Family History No Family History Records FoundNo Family History Records FoundNo Family History Records FoundNo Family History Records FoundNo Family History Records Found Advance Directives No Advanced Directives Records FoundNo Advanced Directives Records FoundNo Advanced Directives Records FoundNo Advanced Directives Records FoundNo Advanced Directives Records Found Additional Source Comments REASON FOR VISIT (unrecogniz ed section and content) Reason Comments Back Pain Reason Comments Back Pain INFORMATION SOURCE (unrecogn ized section and content) DATE CREATED AUTHOR 12/31/2021 [facility] DATE CREATED AUTHOR AUTHOR'S ORGANIZ ATION 10/31/2023 [facility] DATE CREATED AUTHOR AUTHOR'S ORGANIZ ATION 11/06/2023 [facility] DATE CREATED AUTHOR AUTHOR'S ORGANIZ ATION 12/11/2023 [facility] DATE CREATED AUTHOR AUTHOR'S ORGANIZ ATION 12/14/2023 [facility] Care Teams (unrecognized sec tion and content) 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 This clinical summary was aggregated from multiple sources. Caution should be exercised in using it in the provision of clinical care. This summary normalizes information from multiple sources, and as a consequence, information in this document may materially change the coding, format and clinical context of patient data. In addition, data may be omitted in some cases. CLINICAL DECISIONS SHOULD BE BASED ON THE PRIMARY CLINICAL RECORDS. [facility] [employer] [facility] provides no warranty or guarantee of the accuracy or completeness of information in this document.
== END 2023-12-16 10:16 | disposition home or self-care (01) ==
LOC: PST 10:15
PROVIDERS: PCP Family Medicine; Visit Provider Surgery
DX: Z01.818 Encounter for other preprocedural examination (principal); Z12.11 Encounter for screening for malignant neoplasm of colon

== ENCOUNTER 2023-12-21 07:32 | Day surgery (SDC) | payer MEDICAID, SELFPAY ==
--- OUTSIDE RECORDS SUMMARY | 2023-12-21 07:38 | XMS_ITS | CCD ---
Author Organization [facility] Care Team Providers Care Illusionist Name Role Phone Jose Alfredo Perez Unavailable [...] NADERER, DR HITESH Johnson Primary Care Unavailable DAYTON, DR WAYNE Alvarado Consulting Unavailable ZIEBER, DR [...] EVITA, OTIS E Admitting Unavailable EVITA, OTIS Samuels Attending Unavailable NADEREChary, HITESH Referring Unavailable NADERER, [...] Wade BEE, Selma Daniels Attending Unavailable Hitesh bOregon MD [facility] Unavail able Nienberg PA-C, Sonali Laguerre Referring Un available Ickes PA-C, Tia Renee Attending Unav ailable Ickes PA-C, Tia Rainey Attending Unav ailable Hitesh Obregon MD [facility] Unavail able Ickes PA-C, Tia Brigid Attending Unav ailable Ickes PA-C, Tia Brigid Attending Unav ailable Ickes PA-C, Tia Renee Attending Unav ailable NadHitesh [facility]inton [facility]av[facility] able HITESH OBREGON Attending Unavailable ADORE MENDOZA Attending Unavailable HITESH OBREGON Attending Unavailable DEVIN PETTY Attending Unavailable Viral Ha Attending Unavailab le Viral Ha Admitting Unavailab le Allergies Allergy Classification Reported Allergen(s) Allergy Type Date of Onset Reaction(s) Facility Amoxicillin / Clavulanate (1 source) Amoxicillin / Clavulanate; Translations: [amoxicillin-cla vulanate] Drug Allergy [facility] Repository Latex (1 source) Latex; Translations: [Latex] Substance Allergy [facility] Repository (4 sources) Amoxicillin / Clavulanate Drug [facility] Latex; Translations: [LATEX] Drug allergy 5 Unknown [facility] (1 source) Amoxicillin / Clavulanate Drug Allergy 3 [facility] Repository (1 source) Latex Drug allergy (disorder) 3 [facility] (1 source) Levamisole Drug Allergy 3 [facility] Rep[facility] (1 source) Meclizine Drug Allergy 3 [facility] (1 source) AMOXICILLIN-POT CLAVULANATE; Translations: [AMOXICILLIN-POT CLAVULANATE] Propensity to adverse reactions to drug (disorder) 5 [facility] Repository (1 source) Amoxicillin Drug Allergy 3 [facility] Repository (1 source) Clavulanate Drug Allergy 3 [facility] Repository (1 source) Latex Drug allergy (disorder) 3 [facility] Repository Medications Current Medications Medication Drug [...] 06-05-2021 Episodic Other aftercare (6 sources) Other shelter (current) drug therapy; Translations: [OTH COPS CURRENT DRUG THERAPY] Onset: 09-29-2021 Episodic Other [...] Joe Fairbanks MD on 10/29/2023 1:26 PM [facility] Pain Management Office/Clini c Noteon 10-29-2023 Pain [...] noneChiropractic: noneInjections: PRN with Dr. Vazquez in [facility]. Surgery: noneTENS: Home unit Depression: Yes PM [...] Injections: helps Comments Injections: Dr. Vazquez in [facility] Date Surgery: none Recent testing: Yes Recent [...] her neurosurgeon, (more content not included)... Normal [facility] Neurosurgery Office/Clinic N oteon 05-28-2024 Neurosurgery Office/Clinic [...] sagittal balance Patient denies physical therapy or group care worker. Her pain has been refractory to oral [...] bilaterally. Bilateral (more content not included)... Normal [facility] Provider Letteron 10-19-2023 Provider Letter Hitesh Obregon MD [address] [place] [address] Re: Lakia Talbert Date of Visit: 10/19/2023 Dear Hitesh Obregon, Thank you for allowing me to contribute to the care of your patient, Lakia Talbert. Attached is my office note and you will find my assessment and recommendations from our encounter today. Please do not hesitate to contact me with any questions or concerns. Sincerely, Tia Webb PA-C [facility] [address] [address] The following document(s) were included in the letter: October 19, 2023 14:26:47 EDT - (10/19/2023) Neurosurgery Office Visit Note Normal [facility] [place] Bone SPECT CT with Whole Bodyon 10-04-[address] with Whole Body NUCLEAR [...] Electronically Signed in Other Vendor System) Normal [facility] Neurosurgery Office/Clinic N romion 09-13-2023 Neurosurgery Office/Clinic [...] sagittal balance Patient denies physical therapy or group care worker. Her pain has been refractory to oral [...] 5 o (more content not included)... Normal [facility] Glucose Glucometer (BldC) [M ass/Vol]on 09-03-2023 Glucose [Mass/Vol] 99 mg/dL Normal 65-99 [facility] CALCIUMon 07-19-2023 Calcium [Mass/Vol] 9.9 mg/dL Normal 8.5-10.5 [facility] Comment on above: Performed By: #### 1 7861-6, ELEC, 3016-3, 3024-7, 41439-4 #### [facility] ([id number]) [address], [address] [place] [address] ELECTROLYTESon 07-19-2023 Anion gap [Moles/Vol] 8 mmol/L Normal 5-15 [facility] Comment on above: Performed By: #### 1 7861-6, ELEC, 3016-3, 3024-7, 16347-7 #### [facility] ([id number]) [address], [address] [place] [address] Chloride [Moles/Vol] 100 mmol/L Normal 98-109 [facility] Comment on above: Performed By: #### 1 7861-6, ELEC, 3016-3, 3024-7, 18538-1 #### [facility] ([id number]) [address], [address] [place] [address] CO2 [Moles/Vol] 27 mmol/L Normal 22-32 [facility] Comment on above: Performed By: #### 1 7861-6, ELEC, 3016-3, 3024-7, 14169-3 #### [facility] ([id number]) [address], [address] [place] [address] Potassium [Moles/Vol] 4.0 mmol/L Normal 3.5-5.0 [facility] Comment on above: Performed By: #### 1 7861-6, ELEC, 3016-3, 3024-7, 51613-4 #### [facility] ([id number]) [address], [address] [place] [address] Sodium [Moles/Vol] 135 mmol/L Normal 134-146 [facility] Comment on above: Performed By: #### 1 7861-6, ELEC, 3016-3, 3024-7, 40982-7 #### [facility] ([id number]) [address], [address] [place] [address] FREE T4on 07-19-2023 Free T4 [Mass/Vol] 1.00 ng/dL Normal 0.61-1.60 [facility] Comment on above: Performed By: #### 1 7861-6, ELEC, 3016-3, 3024-7, 17152-2 #### [facility] ([id number]) [address], [address] [place] [address] LITHIUMon 07-19-2023 [place] [Moles/Vol] 0.9 mmol/L Normal 0.5-1.5 [facility] Comment on above: Performed By: #### 1 7861-6, ELEC, 3016-3, 3024-7, 72135-4 #### [facility] ([id number]) [address], [address] [place] [address] TSH Qnon 07-19-2023 TSH 9.27 uIU/mL High 0.49-4.67 [facility] Comment on above: Performed By: #### 1 7861-6, ELEC, 3016-3, 3024-7, 17616-8 #### [facility] ([id number]) [address], [address] [place] [address] Glucose Glucometer (BldC) [M ass/Vol]on 07-09-2023 Glucose [Mass/Vol] 95 mg/dL Normal 65-99 [facility] Neurosurgery Office/Clinic N oteon 05-31-2023 Neurosurgery Office/Clinic [...] activity level/function. Patient denies physical therapy or group care worker. Her pain has been refractory to oral [...] back pa (more content not included)... Normal [facility] XR Scoliosis Study 2 or 3 Vi [...] Electronically Signed in Other Vendor System) Normal [facility] CT Spine Lumbar w/o Contrast on 05-14-2023 [...] Electronically Signed in Other Vendor System) Normal [facility] XR Spine Lumbosacral Bending 2-3 [facility] 05-14-2023 [...] 05/14/2023 12:03 pm Signed by: Nupur BEE, Kanika Murphy Signed (Electronic Signature): 05/14/2023 12:05 pm (If Report Is Signed, Electronically Signed in Other Vendor System) [facility] Neurosurgery Office/Clinic Monica mcmahon 03-15-2023 Neurosurgery Office/Clinic Note Chief Complaint back consult History of Present Illness Patient is a pleasant 47-year-old female with a history of fibromyalgia, insulin resistance, Vitamin D defiiciency, and Graves' disease, who presents to the outpatient neurosurgical clinic today as a new patient, at the request of her treating pain management provider, Gt Lopez PA-C ([place] office), for consultation on behalf of complaints [...] activity level/function. Patient denies physical therapy or group care worker. Her pain has been refractory to oral [...] has no children. She lives independently in [place]. Patient denies nicotine or alcohol. She reports daily recreational marijuana use, but otherwise denies recreational drugs. Patient is currently unemployed. 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 Patient states no [place] of Workmen's Compensation or third-constitution party insurance claims based on today's office visit. [...] digital compressi (more content not included)... Normal [facility] Provider Letteron 03-15-2023 Provider Letter Hitesh Obregon MD [address] [place] [address] Re: Lakia Talbert Date of Visit: 03/15/2023 Dear Hietsh Obregon, Thank you for allowing me to contribute to the care of your patient, Lakia Talbert. Attached is my office note and you will find my assessment and recommendations from our encounter today. Please do not hesitate to contact me with any questions or concerns. Sincerely, Tia Webb PA-C [facility] [address] The following document(s) were included in the letter: March 15, 2023 12:49:11 EDT - (03/15/2023) Neurosurgery Office Visit Note Normal [facility] LITHIUMon 12-31-2021 [place] (Eskalith(R)), Serum 0.5 mmol/L Normal 0.5-1.2 [facility] Comment on above: Result Comment: Plas ma concentration of 0.5 - 0.8 mmol/L are advised for long-term use; concentrations of up to 1.2 mmol/L may be necessary during acute treatment. Detection Limit = 0.1 <0.1 indicates None Detected Performed By: #### L ITHIUM ####[facility] [address] [address]DrMartín George FREE T3on 12-29-2021 FREE T3 2.57 pg/mlL Normal 2.18-3.98 [facility] Comment on above: Performed By: #### T SH, FT3 #### [facility] [address] [address] Vjiay Ariel FREE T4on 12-29-2021 Free T4 [Mass/Vol] 1.08 ng/dL Normal 0.76-1.46 [facility] Comment on above: Performed By: #### F T4 ####[facility] [address] [address]Dr. Vijay George TSHon 12-29-2021 TSH 1.091 uIU/mL Normal 0.358-3.740 [facility] Comment on above: Performed By: #### T SH, FT3 ####[facility] [address] [address]DrMartín Jazlynkale George LITHIUMon 10-01-2021 [place] (Eskalith(R)), Serum 0.4 mmol/L Critically low 0.5-1.2 [facility] Comment on above: Result Comment: Plas ma concentration of 0.5 - 0.8 mmol/L are advised for long-term use; concentrations of up to 1.2 mmol/L may be necessary during acute treatment. Detection Limit = 0.1 <0.1 indicates None Detected Performed By: #### L ITHIUM ####[facility] [address] [id number]. Vijay George FREE T3on 09-29-2021 FREE T3 1.92 pg/mlL Critically low 2.18-3.98 [facility] Comment on above: Performed By: #### T SH, FT3 ####[facility] [address] [address]DrMartín Vijay Ariel FREE T4on 09-29-2021 Free T4 [Mass/Vol] 1.07 ng/dL Normal 0.76-1.46 [facility] Comment on above: Performed By: #### F T4 ####[facility] [address] [address]DrMartín Vijay Ariel TSHon 09-29-2021 TSH 3.695 uIU/mL Normal 0.358-3.740 [facility] Comment on above: Performed By: #### T SH, FT3 ####[facility] [address] [address]DrMartín George TSH RANGE SEE BELOW Normal [facility] Comment on above: Result Comment: <0.3 4 UIU/ml HYPERTHYROID 0.34-5.60 UIU/ml EUTHYROID >5.60 UIU/ml HYPOTHYROID Performed By: #### T SH, FT3 ####[facility] [address] [id number] George LITHIUMon 07-02-2021 [place] (Eskalith(R)), Serum 0.8 mmol/L Normal 0.5-1.2 [facility] Comment on above: Result Comment: Plas ma concentration of 0.5 - 0.8 mmol/L are advised for long-term use; concentrations of up to 1.2 mmol/L may be necessary during acute treatment. Detection Limit = 0.1 <0.1 indicates None Detected Performed By: #### L ITHIUM #### [facility] [address] [address] [address] Vijay George CBC AUTO DIFFon 06-30-2021 BASO # 0.1 103/ul Normal 0.0-0.1 [facility] Comment on above: Performed By: #### C BC ####[facility] [address] [address]DrMartín George Basophils/100 WBC (Bld) 1.0 % Normal 0.2-2.0 [facility] Comment on above: Performed By: #### C BC ####[facility] [address] [address]DrMartín George EO # 0.4 103/ul Normal 0.0-0.7 [facility] Comment on above: Performed By: #### C BC ####[facility] [address] [address]Dr. Vijay George Eosinophils/100 WBC (Bld) 5.5 % Normal 0.9-7.0 [facility] Comment on above: Performed By: #### C BC ####[facility] [address] [address]Dr. Vijay George Erythrocyte distribution width (RBC) [Ratio] 12.8 % Normal 11.0-15.0 [facility] Comment on above: Performed By: #### C BC ####[facility] [address] [place], [place] [address]Dr. Vijay George Hematocrit (Bld) [Volume fraction] 42.3 % Normal 36.0-48.0 [facility] Comment on above: Performed By: #### C BC ####[facility] [address] [place], [place] [address]Dr. Vijay George Hemoglobin (Bld) [Mass/Vol] 13.1 g/dL Normal 12.0-16.0 [facility] Comment on above: Performed By: #### C BC ####[facility] [address] [place], [place] [address]Dr. Vijay George IG # 0.02 10e3/ul Normal 0.00-0.03 [facility] Comment on above: Performed By: #### C BC ####[facility] [address] [place], [place] [address]Dr. Vijay George IG % 0.2 % Normal 0.0-0.5 [facility] Comment on above: Performed By: #### C BC ####[facility] [address] [place], [place] [address]Dr. Vijay George LYMPH # 1.6 103/ul Normal 1.2-3.8 [facility] Comment on above: Performed By: #### C BC ####[facility] [address] [place], [place] [address]Dr. Vijay George Lymphocytes/100 WBC (Bld) 19.4 % Critically low 20.5-60.0 [facility] Comment on above: Performed By: #### C BC ####[facility] [address] [place], [place] [address]Dr. Vijay George MANUAL DIFF REQ NO Normal [facility] Comment on above: Performed By: #### C BC ####[facility] [address] [id number]. Vijay Ariel MCH (RBC) [Entitic mass] 29.8 pg Normal 26.7-34.0 [facility] Comment on above: Performed By: #### C BC ####[facility] [address] [address]Dr. Vijay George MCHC (RBC) [Mass/Vol] 31.0 g/dL Normal 29.9-35.2 [facility] Comment on above: Performed By: #### C BC ####[facility] [address] [address]Dr. Jazlynkale George MCV (RBC) [Entitic vol] 96.4 fL Normal 81.0-99.0 [facility] Comment on above: Performed By: #### C BC ####[facility] [address] [place], [place] [address]Dr. Vijay George MONO # 0.5 103/ul Normal 0.3-0.8 [facility] Comment on above: Performed By: #### C BC ####[facility] [address] [place], [place] [address]Dr. Jazlynkale George Monocytes/100 WBC (Bld) 6.1 % Normal 1.7-12.0 [facility] Comment on above: Performed By: #### C BC ####[facility] [address] [place], [place] [address]Dr. Vijay Geogre NEUT # 5.4 103/ul Normal 1.4-6.5 [facility] Comment on above: Performed By: #### C BC ####[facility] [address] [place], [place] [address]Dr. Vijay George Neutrophils/100 WBC (Bld) 67.8 % Normal 43.0-75.0 [facility] Comment on above: Performed By: #### C BC ####[facility] [address] [place], [place] [address]Dr. Vijay George Platelet mean volume (Bld) [Entitic vol] 10.4 fL Normal 9.5-13.5 [facility] Comment on above: Performed By: #### C BC ####[facility] [address] [address]Dr. Jazlynkale Ariel PLT 313 103/ul Normal 150-450 [facility] Comment on above: Performed By: #### C BC ####[facility] [address] [address]Dr. Vijay George RBC 4.39 106/ul Normal 4.20-5.40 [facility] Comment on above: Performed By: #### C BC ####[facility] [address] [address]Dr. Vijay George WBC 8.0 103/ul Normal 4.0-11.0 [facility] Comment on above: Performed By: #### C BC ####[facility] [address] [address]Dr. Vijay George FREE T3on 06-30-2021 FREE T3 2.14 pg/mlL Critically low 2.77-5.27 [facility] Comment on above: Performed By: #### B MP, TSH, FT3, LIVER, LIPID #### [facility] [address] [address] [address] Vijay George FREE T4on 06-30-2021 Free T4 [Mass/Vol] 1.24 ng/dL Normal 0.78-2.19 [facility] Comment on above: Performed By: #### V ITAD, FT4 ####[facility] [address] [address]Dr. Vijay George GLYCOHEMOGLOBIN A1Con 2021 ADA RECOMMENDATION ADA THERAPEUTIC TARG ET 6.0 - 7.0 ACTION SUGGESTED > 7.0 Normal [facility] Comment on above: Performed By: #### A 1C #### [facility] [address] [address] [address] Vijay George Glucose [Mass/Vol] 108 mg/dL Normal [facility] Comment on above: Performed By: #### A 1C #### [facility] [address] [address] [address] Vijay George HbA1c (Bld) [Mass fraction] 5.4 % Normal <=6.0 [facility] Comment on above: Performed By: #### A 1C #### [facility] [address] [place] [address] Dr. Vijay George LIPID PROFILEon 06-30-2021 CHOL-HDL RATIO NORM SEE BELOW Normal [facility] Comment on above: Result Comment: 3.3 - 4.4 LOW RISK 4.4 - 7.1 AVERAGE RISK 7.1 - 11.0 MODERATE RISK >11.0 HIGH RISK Performed By: #### B MP, TSH, FT3, LIVER, LIPID #### [facility] [address] [place] [address] Dr. Vijay George Cholesterol [Mass/Vol] 223 mg/dL Critically high <=200 [facility] Comment on above: Performed By: #### B MP, TSH, FT3, LIVER, LIPID #### [facility] [address] [place] [address] Dr. Vijay George Cholesterol in HDL [Mass/Vol] 56 mg/dL Normal [facility] Comment on above: Performed By: #### B MP, TSH, FT3, LIVER, LIPID #### [facility] [address] [place] [address] Dr. Vijay George Cholesterol in LDL [Mass/Vol] 115.8 mg/dL Normal [facility] Comment on above: Performed By: #### B MP, TSH, FT3, LIVER, LIPID #### [facility] [address] [place] [address] Dr. Vijay George Cholesterol.total/Ch olesterol in HDL [Mass ratio] 4.0 {ratio} Normal [facility] Comment on above: Performed By: #### B MP, TSH, FT3, LIVER, LIPID #### [facility] [address] [place] [address] Dr. Vijay George HDL NORMAL > or = 60 mg/dl - LO W CARDIOVASCULAR RISK <40 mg/dl - HIGH CARDIOVASCULAR RISK Normal [facility] Comment on above: Performed By: #### B MP, TSH, FT3, LIVER, LIPID #### [facility] [address] [address] [address] Vijay George LDL CALC NORMAL SEE BELOW Normal [facility] Comment on above: Result Comment: <100 mg/dl OPTIMAL 100 - 129 mg/dl NEAR OR ABOVE OPTIMAL 130 - 159 mg/dl BORDERLINE HIGH 160 - 189 mg/dl HIGH >190 mg/dl VERY HIGH Performed By: #### B MP, TSH, FT3, LIVER, LIPID #### [facility] [address] [address] [address] Vijay George Triglyceride [Mass/Vol] 256 mg/dL Critically high <=150 [facility] Comment on above: Performed By: #### B MP, TSH, FT3, LIVER, LIPID #### [facility] [address] [address] [address] Vijay George VLDL CALC 51.2 mg/dL Normal [facility] Comment on above: Performed By: #### B MP, TSH, FT3, LIVER, LIPID #### [facility] [address] [address] [address] Vijay George LIVER PROFILEon 06-30-2021 Albumin [Mass/Vol] 4.0 g/dL Normal 3.5-5.0 [facility] Comment on above: Performed By: #### B MP, TSH, FT3, LIVER, LIPID #### [facility] [address] [address] [address] Vijay George Albumin/Globulin [Mass ratio] 1.0 {ratio} Normal [facility] Comment on above: Performed By: #### B MP, TSH, FT3, LIVER, LIPID #### [facility] [address] [address] [address] Vijay George ALP [Catalytic activity/Vol] 97 U/L Normal 38-126 [facility] Comment on above: Performed By: #### B MP, TSH, FT3, LIVER, LIPID #### [facility] [address] [address] [address] Vijay George ALT [Catalytic activity/Vol] 25 U/L Normal 9-52 [facility] Comment on above: Performed By: #### B MP, TSH, FT3, LIVER, LIPID #### [facility] [address] [place] [address] Dr. Vijay George AST [Catalytic activity/Vol] 21 U/L Normal 14-36 [facility] Comment on above: Performed By: #### B MP, TSH, FT3, LIVER, LIPID #### [facility] [address] [place] [address] Dr. Vijay George BILI, CONJUGATED 0.0 mg/dL Normal 0.0-0.[address] [facility] Comment on above: Performed By: #### B MP, TSH, FT3, LIVER, LIPID #### [facility] [address] [place] [address] Dr. Vijay George Bilirubin [Mass/Vol] 0.2 mg/dL Normal 0.2-1.3 [facility] Comment on above: Performed By: #### B MP, TSH, FT3, LIVER, LIPID #### [facility] [address] [place] [address] Dr. Vijay George Globulin (S) [Mass/Vol] 4.2 g/dL Normal [facility] Comment on above: Performed By: #### B MP, TSH, FT3, LIVER, LIPID #### [facility] [address] [place] [address] Dr. Vijay George Protein [Mass/Vol] 8.2 g/dL Normal 6.1-8.2 [facility] Comment on above: Performed By: #### B MP, TSH, FT3, LIVER, LIPID #### [facility] [address] [place] [address] Dr. Vijay George PROF CHEM 8 (BAS METB)on Anion gap [Moles/Vol] 10.1 mmol/L Normal [facility] Comment on above: Performed By: #### B MP, TSH, FT3, LIVER, LIPID #### [facility] [address] [place] [address] Dr. Vijay George Calcium [Mass/Vol] 9.7 mg/dL Normal 8.4-10.2 [facility] Comment on above: Performed By: #### B MP, TSH, FT3, LIVER, LIPID #### [facility] [address] [address] [address] Vijay George Chloride [Moles/Vol] 101 mmol/L Normal 98-107 [facility] Comment on above: Performed By: #### B MP, TSH, FT3, LIVER, LIPID #### [facility] [address] [place] [address] Dr. Vijay George CO2 [Moles/Vol] 32.1 mmol/L Critically high 22.0-30.0 [facility] Comment on above: Performed By: #### B MP, TSH, FT3, LIVER, LIPID #### [facility] [address] [place], [place] [address] Dr. Vijay George Creatinine [Mass/Vol] 0.82 mg/dL Normal 0.52-1.04 [facility] Comment on above: Performed By: #### B MP, TSH, FT3, LIVER, LIPID #### [facility] [address] [place] [address] Dr. Vijay George EGFR-AF WELSH >60 Normal >=60 [facility] Comment on above: Performed By: #### B MP, TSH, FT3, LIVER, LIPID #### [facility] [address] [place] [address] Dr. Vijay George EGFR-NON AF WELSH >60 Normal >=60 [facility] Comment on above: Performed By: #### B MP, TSH, FT3, LIVER, LIPID #### [facility] [address] [place] [address] Dr. Vijay George Glucose [Mass/Vol] 107 mg/dL Critically high 74-106 [facility] Comment on above: Performed By: #### B MP, TSH, FT3, LIVER, LIPID #### [facility] [address] [place] [address] Dr. Vijay George Potassium [Moles/Vol] 4.2 mmol/L Normal 3.4-5.0 [facility] Comment on above: Performed By: #### B MP, TSH, FT3, LIVER, LIPID #### [facility] [address] [address] [address] Vijay George Sodium [Moles/Vol] 139 mmol/L Normal 137-145 [facility] Comment on above: Performed By: #### B MP, TSH, FT3, LIVER, LIPID #### [facility] [address] [address] [address] Vijay George Urea nitrogen [Mass/Vol] 15.0 mg/dL Normal 7.0-17.0 [facility] Comment on above: Performed By: #### B MP, TSH, FT3, LIVER, LIPID #### [facility] [address] [address] [address] Vijay George Urea nitrogen/Creatinine [Mass ratio] 18.3 mg/mg Normal [facility] Comment on above: Performed By: #### B MP, TSH, FT3, LIVER, LIPID #### [facility] [address] [address] [address] Vijay George TSHon 06-30-2021 TSH 7.199 uIU/mL Critically high 0.470-4.680 [facility] Comment on above: Performed By: #### B MP, TSH, FT3, LIVER, LIPID #### [facility] [address] [address] [address] Vijay George TSH RANGE SEE BELOW Normal [facility] Comment on above: Result Comment: <0.3 4 UIU/ml HYPERTHYROID 0.34-5.60 UIU/ml EUTHYROID >5.60 UIU/ml HYPOTHYROID Performed By: #### B MP, TSH, FT3, LIVER, LIPID #### [facility] [address] [address] [address] Vijay George VITAMIN D 25 OHon 06-30-2021 VIT D 25-OH 33.8 ng/mL Normal [facility] Comment on above: Performed By: #### V ITAD, FT4 ####[facility] [address] [address]Dr. Vijay George VIT D RANGES SEE BELOW Normal [facility] Comment on above: Result Comment: <20 ng/mL Vit D deficient 20 - <30 ng/mL Vit D insufficient 30 - 100 ng/mL Vit D sufficient >100 ng/mL Potential Toxicity Performed By: #### V ITAD, FT4 ####[facility] [address] [address]Dr. Vijay George PAP ACOG PANEL 2: 30 to 65on 06-06-2021 . . Normal [facility] Comment on above: Result Comment: Perf ormed at: WB Performed By: #### [id number] #### [facility] [address] [address] [address] Vijay George Age Gdln ACOG Testing 30-65 [facility] Comment on above: Performed By: #### [id number] #### [facility] [address] [address] [address] Vijay George DIAGNOSIS: Comment Normal [facility] Comment on above: Result Comment: NEGA TIVE FOR INTRAEPITHELIAL LESION OR MALIGNANCY. THIS SPECIMEN WAS RESCREENED PART OF OUR [employer] PROGRAM. Performed at: WB Performed By: #### [id number] #### [facility] [address] [address] [address] Vijay George HPV Aptima Negative Normal Negative [facility] Comment on above: Result Comment: This nucleic acid amplification test detects fourteen high-risk HPV types (16,18,31,33,35,39,45,51,52,56,58,59,66,68) without differentiation. Performed at: =G Performed By: #### [id number] #### [facility] [address] [address] [address] Vijay George Methodology: Comment Normal [facility] Comment on above: Result Comment: This liquid based ThinPrep(R) pap test was screened with the use of an image guided system. Performed at: WB Performed By: #### [id number] #### [facility] [address] [place] [address] Dr. Vijay George Note: Comment Normal [facility] Comment on above: Result Comment: The Pap smear is a screening test designed to aid in the detection of premalignant and malignant conditions of the uterine cervix. It is not a diagnostic procedure and should not be used as the sole means of detecting cervical cancer. Both false-positive and false-negative reports do occur. . Performed at: WB Performed By: #### [id number] #### [facility] [address] [address] [address] Vijay George Performed by: Comment Normal [facility] Comment on above: Result Comment: Kiah Salmeron, Middle School Math Teacher (ASCP) Performed at: WB Performed By: #### [id number] #### [facility] [address] [address] [address] Vijay George QC reviewed by: Comment Normal [facility] Comment on above: Result Comment: Urban Wetzel, Supervisory Middle School Math Teacher (ASCP) Performed at: WB Performed By: #### [id number] #### [facility] [address] [place] [address] Dr. Vijay George Specimen adequacy: Comment Normal [facility] Comment on above: Result Comment: Sati sfactory for evaluation. No endocervical component is identified. Performed at: WB Performed By: #### [id number] #### [facility] [address] [place] [address] Dr. Vijay George MRI LSPINE WO CONon [...] by: WAYNE KAPLAN Date: 2021-05-06 14:14 Normal [facility] MRI SHOULDER LT WO CONon MRI SHOULDER [...] by: THERESA HARRIS Date: 2021-05-06 14:52 Normal [facility] Vital Signs Date Time Vital Sign Value Performing Clinician Facility 08-19-2023 13:54-0400 Body height 167.6 cm Sonali Lopez PA Work Phone: [facility] 08-19-2023 13:54-0400 Body mass index (BMI) [Ratio] 31.96 kg/m2 Sonali Lopez PA Work Phone: [facility] 08-19-2023 13:54-0400 Body weight 89.81 kg Sonali Lopez PA Work Phone: [facility] 08-19-2023 13:54-0400 Diastolic blood pressure 79 mm[Hg] Sonali Lopez PA Work Phone: [facility] 08-19-2023 13:54-0400 Heart rate 71 /min Sonali Lopez PA Work Phone: [facility] 08-19-2023 13:54-0400 Respiratory rate 18 /min Sonali Lopez PA Work Phone: [facility] 08-19-2023 13:54-0400 SaO2% (BldA) [Mass fraction] 97 % Sonali Lopez PA Work Phone: [facility] 08-19-2023 13:54-0400 Systolic blood pressure 119 mm[Hg] Sonali Lopez PA Work Phone: [facility] 06-24-2023 12:18-0500 Diastolic blood pressure 80 mm[Hg] Sonali Lopez PA Work Phone: [facility] 06-24-2023 12:18-0500 Heart rate 67 /min Sonali Lopez PA Work Phone: [facility] 06-24-2023 12:18-0500 Respiratory rate 20 /min Sonali Ramenberg PA Work Phone: [facility] 06-24-2023 12:18-0500 Systolic blood pressure 124 mm[Hg] Sonali Lopez PA Work Phone: [facility] [employer] 05-22-2021 15:00-0500 Body height 167.64 cm Jose Alfredo Perez Other [employer] Other 05-22-2021 15:00-0500 Body mass index (BMI) [Ratio] 30.66 kg/m2 Jose Alfredo Perez Other [employer] Other 05-22-2021 15:00-0500 Body weight 86.18 kg Jose Alfredo Perez Other [employer] Other Encounters Encounter Date Encounter Type Care Provider Facility Start: 12-07-2023 End: 12-07-2023 ambulatory DEVIN PETTY Not Available Start: 11-30-2023 ambulatory Viral Rosario acility:[facility] Start: 11-01-2023 End: 11-01-2023 ambulatory ADORE MENDOZA Not Available Start: 10-29-2023 End: 10-29-2023 ambulatory Selma Olvera MD Facility:[facility] [place] Start: 10-20-2023 End: 10-20-2023 ambulatory HITESH OBREGON Not Available Start: 10-19-2023 End: 10-19-2023 ambulatory Tia Webb PA-C Facility:[facility] Start: 10-01-2023 End: 10-01-2023 ambulatory Tia Webb PA-C Facility:[facility] Start: 09-13-2023 End: 09-13-2023 ambulatory Tia Webb PA-C Facility:[facility] Start: 09-04-2023 End: 09-04-[address] [facility] Start: 09-03-2023 End: 09-03-[address] [facility] Start: 08-19-2023 End: 08-19-[address] [facility] Start: 08-19-2023 End: 08-19-2023 Office outpatient visit 25 minutes Sonali LARSEN Work Phone: [facility] Comment on above: Lumbosacral spondylo sis without myelopathy (Primary Dx) Start: 07-23-2023 End: 07-23-2023 ambulatory [facility] Start: 07-23-2023 End: 07-23-2023 ambulatory [facility] Start: 07-19-2023 End: 07-19-[address] [facility] Start: 07-10-2023 End: 07-10-[address] [facility] Start: 07-09-2023 End: 07-09-2023 ambulatory [facility] Start: 06-24-2023 End: 06-24-2023 Office outpatient visit 25 minutes Sonali LARSEN Work Phone: [facility] Comment on above: Lumbosacral spondylo sis without myelopathy (Primary Dx) Start: 06-24-2023 End: 06-24-[address] [facility] Start: 06-09-2023 Telephone encounter Sonali LARSEN Work Phone: [facility] Start: 05-31-2023 End: 05-31-2023 ambulatory iTa Webb PA-C Facility:[facility] Start: 05-13-2023 End: 05-13-2023 ambulatory Tia Webb PA-C Facility:[facility] Start: 04-26-2023 End: 04-26-2023 ambulatory HITESH OBREGON Not Available Start: 03-15-2023 End: 03-15-2023 ambulatory Sonali Lopez PA-C Facility:[facility] Start: 12-29-2021 End: 12-30-[address] HITESH OBREGON Facility: Start: 09-29-2021 End: 09-30-[address] HITESH OBREGON Facility:[facility] Start: 07-04-2021 Encounter for genera l adult medical examination without abnormal findings DR HITESH OBREGON [facility] Start: 06-30-2021 End: 07-01-[address] HITESH OBREGON Facility:[facility] Start: 06-30-2021 End: 07-01-2021 Encounter for general adult medical examination without abnormal findings DR HITESH OBREGON Facility:[facility] Start: 06-02-2021 End: 06-02-[address] DEVIN PETTY Facility:[facility] Start: 05-22-2021 End: 05-22-2021 ambulatory Jose Alfredo Perez Other [facility] Other Start: 05-22-2021 Office outpatient ne w 30 minutes Jose Alfredo Perez [facility] Start: 05-06-2021 End: 05-07-[address] HITESH OBREGON Facility:[facility] Plan of Treatment Date Care Activity Detail Author Start: 08-18-2024 Adult BMI Screening Adult BMI Screen ing [facility] Start: 08-18-2024 Tobacco Screening Tobacco Screening [facility] Start: 06-24-2024 Tobacco Screening Tobacco Screening [facility] Start: 02-26-2024 Adult BMI Screening Adult BMI Screen ing [facility] Start: 02-26-2024 Tobacco Screening Tobacco Screening [facility] Start: 09-16-2023 End: 09-16-2023 Patient encounter procedure 09/16/2023 12:15 PM EDT Office Visit [facility] [address] [place] [id number] Sonali Lopez PA [address] [place] [address] [facility] Start: 09-03-2023 End: 09-03-2023 Admission to same day surgery center 09/03/2023 12:17 PM EDT - 09/03/2023 12:25 PM EDT Surgery [facility] [address] [place] [address] Otis Vazquez MD [address] [place] [address] INJECTION BLOCK NERVE MEDIAL BRANCH: left L45 51 [86010 (CPT )] [facility] Comment on above: INJECTION BLOCK NERV E MEDIAL BRANCH: left L45 51 [84650 (CPT )] Start: 09-03-2023 End: 09-03-2023 Njx dx/ther agt pvrt facet jt lmbr/sac 1 level INJECTION BLOCK NERVE MEDIAL BRANCH Lumbosacral spondylosis without myelopathy 09/03/2023 12:17 PM EDT [facility] Start: 09-03-2023 Subsequent hospital visit by physician 09/03/2023 12:17 PM EDT Hospital Encounter [facility] [address] [place] [id number] Otis Vazquez MD [address] [place], [place] [id number] [facility] Start: 08-19-2023 End: 08-19-2023 Patient encounter procedure 08/19/2023 1:30 PM EDT Office Visit [facility] [address] [facility] [place] [id number] Sonali Lopez PA [address] [place] [address] [facility] Start: 07-23-2023 End: 07-23-2023 Admission to same day surgery center 07/23/2023 1:00 PM EST - 07/23/2023 1:12 PM EST Surgery [facility] [address] [place] [id number] Otis Vazquez MD [address] [place] [address] RADIOFREQUENCY ABLATION SPINAL: left L 4/5, 5/1 [38724 (CPT )] [facility] Comment on above: RADIOFREQUENCY ABLAT ION SPINAL: left L 4/5, 5/1 [86083 (CPT )] Start: 07-23-2023 End: 07-23-2023 Dstr nrolytc agnt parverteb fct sngl lmbr/sacral RADIOFREQUENCY ABLATION SPINAL Lumbosacral spondylosis without myelopathy 07/23/2023 1:00 PM EST [facility] Start: 07-23-2023 Subsequent hospital visit by physician 07/23/2023 1:00 PM EST Hospital Encounter [facility] [address] [place] [address] Otis Vazquez MD [address] [place] [address] [facility] Start: 07-09-2023 End: 07-09-2023 Admission to same day surgery center 07/09/2023 2:12 PM EST - 07/09/2023 2:24 PM EST Surgery [facility] [address] [place] [address] Otis Vazquez MD [address] [place] [address] RADIOFREQUENCY ABLATION SPINAL: right L 4/5, 5/1 [25230 (CPT )] [facility] Comment on above: RADIOFREQUENCY ABLAT ION SPINAL: right L 4/5, 5/1 [10914 (CPT )] Start: 07-09-2023 End: 07-09-2023 Dstr nrolytc agnt parverteb fct sngl lmbr/sacral RADIOFREQUENCY ABLATION SPINAL Lumbosacral spondylosis without myelopathy 07/09/2023 2:12 PM EST [facility] Start: 07-09-2023 Subsequent hospital visit by physician 07/09/2023 2:12 PM EST Hospital Encounter [facility] [address] [facility] [place] [phone] Otis Vazquez MD [address] [place] [address] [facility] Start: 01-22-2023 COVID-19 Vaccine ( season) COVID-19 Vaccine ( season) [facility] Start: 01-22-2023 Influenza vaccination Influenza Vacc ine [facility] Start: 09-08-1994 DTaP,Tdap and Td Vaccines (1 - Tdap) DTaP,Tdap and Td Vaccines (1 - Tdap) [facility] Start: 09-08-1993 Adult BMI Follow Up Plan Adult BMI F ollow Up Plan [facility] Start: 1987 Depression Screening Depression Scre [facility] Payers Date Payer Category Payer Self-pay 2022 Medicaid [facility] MEDICAID [facility] MEDICAID [id number] 2022-Present [address] [place] [address] [id number] 2022 Medicaid [id number] 2022 Unknown 1975 Unknown [id number] 2.16.840.1.621043.3.579.2.593 1975 Unknown [id number] 2.16.840.1.764481.3.579.2.593 1975 Unknown [id number] 2.16.840.1.548006.3.579.2.593 1975 Unknown [id number] 2.16.840.1.701357.3.579.2.593 1975 Unknown [id number] 2.16.840.1.789597.3.579.2.593 1975 Unknown [id number] 2.16.840.1.185335.3.579.2.1285 1975 Unknown [id number] 2.16.840.1.706723.3.579.2.1285 1975 Unknown [id number] 2.16.840.1.922830.3.579.2.1285 1975 Unknown [id number] 2.16.840.1.558049.3.579.2.1285 1975 Unknown [id number] 2.16.840.1.774610.3.579.2.1285 1975 Unknown [id number] 2.16.840.1.051311.3.579.2.1285 1975 Unknown [id number] 2.16840.1.788233.3.579.2.1285 1975 Unknown [id number] 2.16.840.1.615149.3.579.2.1285 1975 Unknown [id number] 2.16.840.1.376702.3.579.2.1285 1975 Unknown [id number] 2.16.840.1.883611.3.579.2.1285 1975 Unknown [id number] 2.16.840.1.973137.3.579.2.1285 1975 Unknown [id number] 2.16.840.1.330121.3.579.2.1285 1975 Unknown [id number] 2.16.840.1.573329.3.579.2.1285 1975 Unknown [id number] 2.16.840.1.983516.3.579.2. 1975 Unknown [id number] 2.16.840.1.278205.3.579.2. 1975 Unknown [id number] 2.16.840.1.178147.3.579.2.196 1975 Unknown [id number] 2.16.840.1.927090.3.579.2.196 1975 Unknown [id number] 2.16.840.1.304471.3.579.2.196 1975 Unknown [id number] 2.16.840.1.804013.3.579.2. 1975 Unknown [id number] 2.16.840.1.251935.3.579.2.196 1975 Unknown [id number] 2.16.840.1.318400.3.579.2.196 1975 Unknown [id number] 2.16.840.1.631414.3.579.2.9 1975 Unknown [id number] 2.16.840.1.172831.3.579.2.9 1975 Unknown [id number] 2.16.840.1.978891.3.579.2.9 1975 Unknown [id number] 2.16.840.1.092145.3.579.2.1259 1959 Unknown [id number] 2.16.840.1.063543.19 1959 Unknown [id number] Unknown [id number] 2.16.840.1.311682.3.579.2.531 Social History Date Type Detail Facility Start: 12-27-2019 End: 07-04-2020 Sex Assigned At [facility] Start: 08-07-2022 Tobacco smoking stat [facility] Never smoked tobacco [facility] Work Phone: Start: 08-07-2022 Tobacco use and exposure Smoke less tobacco non-user [facility] Start: 02-25-2023 End: 08-19-2023 Alcohol intake Ex-drinker (finding) [facility] Start: 12-27-2019 End: 07-04-2020 History of Social function [facility] Frequency of Alcohol Consumption Never [facility] Start: 1975 Sex Assigned At Not on file [facility] Clinical Notes 08-23-2015 to 08-19-2023 CHAVA Rose - 08/19/2023 1:30 PM EDTPatient InstructionsMattCHAVA Castellon - 06/24/2023 12:15 PM ESTPatient InstructionsTelephone Encounter - Mago Martinez - 06/09/2023 2:23 PM EST Note Date & Type Note Facility 08-19-2023 History of Presen t illness Narrative [facility] [address] [place] [address] Patient: Lakia Talbert Sex: female : 1975 [...] History: Diagnosis Date Anxiety Bipolar 1 disorder ([facility]) Chronic pain disorder DDD (degenerative disc disease), lumbar Depression Fibromyalgia GERD (gastroesophageal reflux disease) Graves disease Hiatal hernia Insulin resistance Low back pain Numbness and tingling Past Surgical History: Procedure Laterality Date CHOLECYSTECTOMY HYSTERECTOMY INJECTION BLOCK EPIDURAL CAUDAL STEROID N/A 08/07/2022 Performed by Otis Vazquez MD at [facility] INJECTION BLOCK EPIDURAL CAUDAL STEROID N/A 06/05/2022 Performed by Otis Vazquez MD at [facility] INJECTION BLOCK NERVE MEDIAL BRANCH: bilat L 4/5 5/ Bilateral 08/08/2021 Performed by Otis Vazquez MD at [facility] INJECTION BLOCK NERVE MEDIAL BRANCH: bilat L 4/5 5/ Bilateral 07/14/2021 Performed by Otis Vazquez MD at [facility] INJECTION BLOCK SACROILIAC JOINT Bilateral 01/15/2023 Performed by Otis Vazquez MD at [facility] INJECTION BLOCK SACROILIAC JOINT Bilateral 09/11/2022 Performed by Otis Vazquez MD at [facility] RADIOFREQUENCY ABLATION SPINAL: left L 4/5 5/1 Left 03/13/2022 Performed by Otis Vazquez MD at [facility] RADIOFREQUENCY ABLATION SPINAL: right L 4/5 5/1 Right 02/27/2022 Performed by Otis Vazquez MD at [facility] RADIOFREQUENCY ABLATION SPINAL: right L 4/5, 5/1 Right 07/09/2023 Performed by Otis Vazquez MD at [facility] SHOULDER SURGERY Left 2021 2021 Allergies Allergen [...] Rose 08/19/23 1517 documented in this encounter [facility] 08-19-2023 Instructions Jeimy Suero CNA - [...] nearest emergency room. documented in this encounter [facility] 06-24-2023 History of Presen t illness Narrative [facility] [address] [place] [address] Patient: Lakia Talbert Sex: female : 1975 Age: 47 y.o. PCP: HITESH OBREGON MD 06/24/2023 Lakia Talbert is here for a follow up after seeing neurosurgeon in [place]. Patient reports he recommended repeat Lumbar RFA. [...] History: Diagnosis Date Anxiety Bipolar 1 disorder ([facility]) Chronic pain disorder DDD (degenerative disc disease), lumbar Depression Fibromyalgia GERD (gastroesophageal reflux disease) Graves disease Hiatal hernia Insulin resistance Low back pain Numbness and tingling Past Surgical History: Procedure Laterality Date CHOLECYSTECTOMY HYSTERECTOMY INJECTION BLOCK EPIDURAL CAUDAL STEROID N/A 08/07/2022 Performed by Otis Vazquez MD at [facility] INJECTION BLOCK EPIDURAL CAUDAL STEROID N/A 06/05/2022 Performed by Otis Vazquez MD at [facility] INJECTION BLOCK NERVE MEDIAL BRANCH: bilat L 4/5 5/1 Bilateral 08/08/2021 Performed by Otis Vazquez MD at [facility] INJECTION BLOCK NERVE MEDIAL BRANCH: bilat L 4/5 5/1 Bilateral 07/14/2021 Performed by Otis Vazquez MD at [facility] INJECTION BLOCK SACROILIAC JOINT Bilateral 01/15/2023 Performed by Otis Vazquez MD at [facility] INJECTION BLOCK SACROILIAC JOINT Bilateral 09/11/2022 Performed by Otis Vazquez MD at [facility] RADIOFREQUENCY ABLATION SPINAL: left L 4/5 5/1 Left 03/13/2022 Performed by Otis Vazquez MD at [facility] RADIOFREQUENCY ABLATION SPINAL: right L 4/5 5/1 Right 02/27/2022 Performed by Otis Vazquez MD at [facility] SHOULDER SURGERY Left 2021 2021 Allergies Allergen [...] Rose 07/01/23 0934 documented in this encounter [facility] 06-24-2023 Instructions Jeimycindy Suero CNA - 06/24/2023 [...] back to normal. documented in this encounter [facility] 06-09-2023 Miscellaneous Notes Returned patient's call. She wanted an appointment for another round of nerve rodriguez. No answer. Full voicemail. documented in this encounter [facility] 06-09-2023 Telephone encounter Note Returned patient's call. She wanted an appointment for another round of nerve rodriguez. No answer. Full voicemail. [facility] 05-22-2021 Evaluation note Encounter Date Diagnosis [...] and [facility] Apr, Degeneration of intervertebral disc at L5-S1 level (ICD-10 - M51.37) [facility] Other 04-01-2016 History general Narrative - Reported* Type Description Date Medical History graves disease Medical History acid reflux Medical History anxiety Medical History 08/23/2015 EGD/Colon oscopy-tiny hiatal hernia, noraml colonoscopy,hemorrhoids Medical History fibromyalgia Surgical History cholecystectomy Surgical History hysterectomy Hospitalization History see above [employer] Other evaluation note* Diagnosis Lumbosacral spondylosis without myelopathy- Primary Lumbosacral spondylosis without myelopathy- Primary Lumbosacral spondylosis without myelopathy Lumbosacral spondylosis without myelopathy documented in this encounter [facility] Votizen SystemEvaluation note* Diagnosis Lumbosacral spondylosis without myelopathy- Primary Lumbosacral spondylosis without myelopathy- Primary Lumbosacral spondylosis without myelopathy documented in this encounter [facility] [employer] SystemInstructionsNot on filedocumented in this encounter [facility] Reason for Referral Reason Evaluate and Tr eat Diagnosis 1 Degeneration of inte rvertebral disc at L5-S1 level (M51.37) Referral Organization [facility]gery Referring Provider First Name Jose Alfredo Referring Provider Last Name Chris Referring Provider Specialty Neurologica l Surgery Referred Organization [facility] Referred Provider Jr. Vazquez William Referred Address [address],[place], [place],[address] Referred Provider Specialty Pain Medicin e Referral [...] [facility] [address] [place] [address] Referral ID Status Reason Start Date Expiration Date V isits Requested Visits Authorized [id number] Pending Review 06/24/2023 06/23/2024 1 1 Specialty Diagnoses / Procedures Referred By Zaire flores Referred To Contact Diagnoses Lumbosacral spondylosis without myelopathy Procedures Case request operating room: RADIOFREQUENCY ABLATION SPINAL: right L45 51 Sonali Lopez, [facility] [address], [address] [place] [id number] Referral ID Status Reason Start Date Expiration Date V isits Requested Visits Authorized [id number] Pending Review 06/24/2023 06/23/2024 1 1 Specialty Diagnoses / Procedures Referred By Zaire flores Referred To Contact Diagnoses Lumbosacral spondylosis without myelopathy Procedures Case request operating room: INJECTION BLOCK NERVE MEDIAL BRANCH: left L45 [address] Sonali Lopez, [facility] [address] [place] [address] Referral ID Status Reason Start Date Expiration Date V isits Requested Visits Authorized [id number] Pending Review 08/19/2023 08/18/2024 1 1 Summary [...] and content) DATE CREATED AUTHOR 12/31/2021 [facility] DATE CREATED AUTHOR AUTHOR'S ORGANIZ ATION 10/31/2023 [facility] DATE CREATED AUTHOR AUTHOR'S ORGANIZ ATION 11/06/2023 [facility] DATE CREATED AUTHOR AUTHOR'S ORGANIZ ATION 12/11/2023 [facility] DATE CREATED AUTHOR AUTHOR'S ORGANIZ ATION 12/14/2023 [facility] Care Teams (unrecognized sec tion and content) Illusionist Relationship Specialty Start Date End Date Hitesh Obregon MD [address] [place] [address] PCP - General Family Medicine 08/13/20 Illusionist Relationship Specialty Start Date End Date Hitesh Obregon MD [address] [place] [address] PCP - [facility] 08/13/20 Illusionist Relationship Specialty Start Date End Date Hitesh Obregon MD [address] [place] [address] PCP - [facility] 08/13/20 FOR RECORDS PERTAINING TO PATIENTS [...] BE BASED ON THE PRIMARY CLINICAL RECORDS. [facility] [employer] [facility]. provides no warranty or guarantee of the accuracy or completeness of information in this document.
[2023-12-21 08:00] VITALS: BP 121/79; PULSE 57; TEMP 36.4; O2SAT 97; BMI 30.7
[2023-12-21 08:03] LABS: Glucometer 104 mg/dL (74-106)
[2023-12-21] MEDS: LACTATED RINGER'S SOLUTION 1,000 ML 50 ML IV (08:19)
--- NOTE | 2023-12-21 09:18 | W.PM.PROCNOT ---
Date of procedure: 12/21/23 Pre-op diagnosis: screening colonoscopy, internal hemorrhoids Post-op diagnosis: same as pre-op Procedure: Previous colonoscopy: 2013 procedure: screening / diagnostic colonoscopy The patient was given IV conscious sedation.? The patient's SPO2 remained above 90% throughout the procedure. The colonoscope was inserted per rectum and advanced under direct vision to the cecum without difficulty.? The prep was ok but there was a large amount of stool still in rectal vault making banding difficult.? Findings: Terminal ileum os: normal Cecum/Ascending colon: normal Transverse colon: normal Descending/Sigmoid colon: normal Rectum/Anus: examined in normal and retroflexed positions and was normal aside from one moderate sized internal hemorrhoid, banding was attempted but incomplete Withdrawal Time was (minutes): 15 The colon was decompressed and the scope was removed.? The patient tolerated the procedure well. Recommendations/Plan: 1.? Lifestyle and dietary modifications as discussed 2.? F/U in 1-2 months for discussion of internal hemorrhoid if still symptomatic 3.? F/U in 5 years for repeat colonoscopy 4.? Discussed with the family Anesthesia: MAC Surgeon: Esteban Bell Estimated blood loss (mL): 0 Pathology: none sent Condition: stable Disposition: PACU
[2023-12-21 10:03] VITALS: BP 109/81; PULSE 77; TEMP 36.1; O2SAT 93
[2023-12-21 10:18] VITALS: BP 149/99; PULSE 79; O2SAT 95
[2023-12-21 10:33] VITALS: BP 161/95; PULSE 64; O2SAT 97
== END 2023-12-21 10:33 | disposition home or self-care (01) ==
PROVIDERS: PCP Family Medicine; Visit Provider Surgery
PROC: (CPT 811; principal; 2023-12-21 09:25)
DX: Z12.11 Encounter for screening for malignant neoplasm of colon (principal); K64.8 Other hemorrhoids; Z90.49 Acquired absence of other specified parts of digestive tract; Z90.710 Acquired absence of both cervix and uterus; Z87.891 Personal history of nicotine dependence; E78.5 Hyperlipidemia, unspecified; M79.7 Fibromyalgia; E03.9 Hypothyroidism, unspecified; K21.9 Gastro-esophageal reflux disease without esophagitis; K44.9 Diaphragmatic hernia without obstruction or gangrene
CPT/HCPCS: 45398; 36415; 82948; J2704

== ENCOUNTER 2024-01-21 12:16 | Outpatient (OUT) | payer MEDICAID, SELFPAY ==
--- OUTSIDE RECORDS SUMMARY | 2024-01-21 12:30 | XMS_ITS | CCD ---
Author Organization [facility] Care Team Providers Care Order Takers Supervisor Name Role Phone Jose Alfredo Perez Unavailable [...] NADERER, DR HITESH Johnson Primary Care Unavailable GIRDLER, DR WAYNE Alvarado Consulting Unavailable ZIEBER, DR THERESA Diez Consulting Unavailable NADERER, DR HITESH Johnson Consulting Unavailable Naderer Hitesh BEE Primary Care Provider [phone] OTIS VAZQUEZ Attending Unavailable VAZQUEZ, OTIS E Referring Unavailable NADERER, HITESH Primary Care Unavailable OTIS VAZQUEZ E Admitting Unavailable OTIS VAZQUEZ Attending Unavailable NADERER, HITESH Referring Unavailable NADERER, HITESH Primary Care Unavailable SONALI LOPEZ Attending Unavailable NADERER, HITESH Referring Unavailable NADERER, HITESH Primary Care Unavailable EVITA, OTIS E Admitting Unavailable VAZQUEZ, OTIS E Attending Unavailable NADEREChary, HITESH Referring Unavailable NADERER, HITESH Primary Care Unavailable OTIS VAZQUEZ E Attending Unavailable EVITA, OTIS E Referring Unavailable NADERER, HITESH Primary Care Unavailable ANURAG NAGY Attending Unavailable HITESH OBREGON Primary Care Unavailable SONALI LOPEZ Attending Unavailable HITESH OBREGON Referring Unavailable HITESH OBREGON Primary Care Unavailable OTIS VAZQUEZ Attending Unavailable OTIS VAZQUEZ Referring Unavailable NADHITESH ANGELES Primary Care Unavailable OTIS VAZQUEZ Admitting Unavailable OTIS VAZQUEZ Attending Unavailable HITESH OBREGON Referring Unavailable HITESH OBREGON Primary Care Unavailable ANURAG NAGY Attending Unavailable HITESH OBREGON Primary Care Unavailable LUZ MARIA CANTU Referring Unavailable HITESH OBREGON Primary Care Unavailable Ickes PA-C, Tia Brigid Attending Unav ailable Ickes PA-C, Tia Renee Attending Unav ailable Wade BEE, Selma Daniels Attending Unavailable Hitesh Obregon MDony Primary Care Unavail able Nienberg PA-C, Sonali Laguerre Referring Un available Ickes PA-C, Tia Brigid Attending Unav ailable Ickes PA-C, Tia Rainey Attending Unav ailable Hitesh Obregon MDony Primary Care Unavail able Ickes PA-C, Tia Brigid Attending Unav ailable Ickes PA-C, Tia Brigid Attending Unav ailable Ickes PA-C, Tia Brigid Attending Unav ailable NadereHitesh diez MDony Primary [facility] Unavail able HITESH OBREGON Attending Unavailable ADOER MENDOZA Attending Unavailable NADEREHITESH Diez Attending Unavailable DEVIN PETTY Attending Unavailable HITESH OBREGON Attending Unavailable Viral Ha Attending Unavailab le Viral Ha Admitting Unavailab le Allergies Allergy Classification Reported Allergen(s) Allergy Type Date of Onset Reaction(s) Facility Amoxicillin / Clavulanate (1 source) Amoxicillin / Clavulanate; Translations: [amoxicillin-cla vulanate] Drug Allergy [facility] Repository Latex (1 source) Latex; Translations: [Latex] Substance Allergy [facility] Repository (4 sources) Amoxicillin / Clavulanate Drug Allergy 5 Swelling [facility] (5 sources) Latex; Translations: [LATEX] Drug allergy 5 Unknown [facility] (1 source) Amoxicillin / Clavulanate Drug Allergy 3 [facility] Repository (1 source) Latex Drug allergy (disorder) 3 [facility] Repository (1 source) Levamisole Drug Allergy 3 [facility] Repository (1 source) Meclizine Drug Allergy 3 [facility] Repository (1 source) AMOXICILLIN-POT CLAVULANATE; Translations: [AMOXICILLIN-POT CLAVULANATE] Propensity to adverse reactions to drug (disorder) 5 [facility] (1 source) Amoxicillin Drug Allergy 3 [facility] Repository (1 source) Clavulanate Drug Allergy 3 [facility] Repository (1 source) Latex Drug allergy (disorder) 3 [facility] Repository Medications Current Medications Medication Drug Class(es) [...] 06-05-2021 Episodic Other aftercare (6 sources) Other moth exterminator (current) drug therapy; Translations: [OTH CORRECTION CURRENT DRUG THERAPY] Onset: 09-29-2021 Episodic Other [...] Joe Fairbanks MD on 10/29/2023 1:26 PM Normal [facility] Pain Management Office/Clini c Noteon 10-29-2023 [...] noneChiropractic: noneInjections: PRN with Dr. Vazquez in [facility]. Surgery: noneTENS: Home unit Depression: Yes PM [...] Injections: helps Comments Injections: Dr. Vazquez in [facility] Date Surgery: none Recent testing: Yes Recent [...] her neurosurgeon, (more content not included)... Normal [facility] Neurosurgery Office/Clinic N lisandro 10-19-2023 Neurosurgery Office/Clinic Note Chief Complaint Back Follow [...] sagittal balance Patient denies physical therapy or primary care pediatrician. Her pain has been refractory to oral [...] bilaterally. Bilateral (more content not included)... Normal [facility] Provider Letteron 10-19-2023 Provider Letter Hitesh Obregon MD [address] [place] [address] Re: Marianacollin Victor Date of Visit: 10/19/2023 Dear Hitesh Obregon, Thank you for allowing me to contribute to the care of your patient, Mariana Victor. Attached is my office note and you will find my assessment and recommendations from our encounter today. Please do not hesitate to contact me with any questions or concerns. Sincerely, iTa Webb PA-C [facility] [place] [address] The following document(s) were included in the letter: October 19, 2023 14:26:47 EDT - (10/19/2023) Neurosurgery Office Visit Note Normal [facility] [place] Bone SPECT CT with Whole Bodyon 10-04-[address] with Whole Body NUCLEAR [...] Electronically Signed in Other Vendor System) Normal [facility] Neurosurgery Office/Clinic N lisandro 09-13-2023 Neurosurgery Office/Clinic Note Chief Complaint Back [...] sagittal balance Patient denies physical therapy or primary care pediatrician. Her pain has been refractory to oral [...] 5 o (more content not included)... Normal [facility] Glucose Glucometer (BldC) [M ass/Vol]on 09-03-2023 Glucose [Mass/Vol] 99 mg/dL Normal 65-99 [facility] CALCIUMon 07-19-2023 Calcium [Mass/Vol] 9.9 mg/dL Normal 8.5-10.5 [facility] Comment on above: Performed By: #### 1 7861-6, ELEC, 3016-3, 3024-7, 60029-3 #### [facility] ([id number]) [address], [address] [place] [address] ELECTROLYTESon 07-19-2023 Anion gap [Moles/Vol] 8 mmol/L Normal 5-15 [facility] Comment on above: Performed By: #### 1 7861-6, ELEC, 3016-3, 3024-7, 25687-4 #### [facility] ([id number]) [address], [address] [place] [address] Chloride [Moles/Vol] 100 mmol/L Normal 98-109 [facility] Comment on above: Performed By: #### 1 7861-6, ELEC, 3016-3, 3024-7, 90148-8 #### [facility] ([id number]) [address], [address] [place] [address] CO2 [Moles/Vol] 27 mmol/L Normal 22-32 [facility] Comment on above: Performed By: #### 1 7861-6, ELEC, 3016-3, 3024-7, 44937-7 #### [facility] ([id number]) [address], [address] [place] [address] Potassium [Moles/Vol] 4.0 mmol/L Normal 3.5-5.0 [facility] Comment on above: Performed By: #### 1 7861-6, ELEC, 3016-3, 3024-7, 31416-9 #### [facility] ([id number]) [address], [address] [place] [address] Sodium [Moles/Vol] 135 mmol/L Normal 134-146 [facility] Comment on above: Performed By: #### 1 7861-6, ELEC, 3016-3, 3024-7, 79589-6 #### [facility] ([id number]) [address], [address] [place] [address] FREE T4on 07-19-2023 Free T4 [Mass/Vol] 1.00 ng/dL Normal 0.61-1.60 [facility] Comment on above: Performed By: #### 1 7861-6, ELEC, 3016-3, 3024-7, 46761-8 #### [facility] ([id number]) [address], [address] [place] [address] LITHIUMon 07-19-2023 [place] [Moles/Vol] 0.9 mmol/L Normal 0.5-1.5 [facility] Comment on above: Performed By: #### 1 7861-6, ELEC, 3016-3, 3024-7, 32993-3 #### [facility] ([id number]) [address], [address] [place] [address] TSH Qnon 07-19-2023 TSH 9.27 uIU/mL High 0.49-4.67 [facility] Comment on above: Performed By: #### 1 7861-6, ELEC, 3016-3, 3024-7, 56073-7 #### [facility] ([id number]) [address], [address] [place] [address] Glucose Glucometer (BldC) [M ass/Vol]on 07-09-2023 Glucose [Mass/Vol] 95 mg/dL Normal 65-99 [facility] Neurosurgery Office/Clinic N oteon 05-31-2023 Neurosurgery Office/Clinic [...] activity level/function. Patient denies physical therapy or primary care pediatrician. Her pain has been refractory to oral [...] back pa (more content not included)... Normal [facility] XR Scoliosis Study 2 or 3 Vi [...] Electronically Signed in Other Vendor System) Normal [facility] CT Spine Lumbar w/o Contrast on 05-14-2023 [...] Electronically Signed in Other Vendor System) Normal [facility] XR Spine Lumbosacral Bending 2-3 Viewson 05-14-2023 [...] Dictated DT/TM: 05/14/2023 12:03 pm Signed by: Kanika Espitia MD Signed (Electronic Signature): 05/14/2023 12:05 pm (If Report Is Signed, Electronically Signed in Other Vendor System) Normal [facility] Neurosurgery Office/Clinic Elise mcmahon 03-15-2023 Neurosurgery Office/Clinic Note Chief Complaint back consult History of Present Illness Patient is a pleasant 47-year-old female with a history of fibromyalgia, insulin resistance, Vitamin D defiiciency, and Graves' disease, who presents to the outpatient neurosurgical clinic today as a new patient, at the request of her treating pain management provider, Gt Lopez PA-C ([facility]), for consultation on behalf of complaints of [...] activity level/function. Patient denies physical therapy or primary care pediatrician. Her pain has been refractory to oral [...] has no children. She lives independently in [place]. Patient denies nicotine or alcohol. She reports daily recreational marijuana use, but otherwise denies recreational drugs. Patient is currently unemployed. 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 Patient states no [place] of Workmen's Compensation or third-libertarian insurance claims based on today's office visit. [...] digital compressi (more content not included)... Normal [facility] Provider Letteron 03-15-2023 Provider Letter Hitesh Obregon MD [address] [place] [address] Re: Mariana Victor Date of Visit: 03/15/2023 Dear Hitesh Obregon, Thank you for allowing me to contribute to the care of your patient, Mariana Victor. Attached is my office note and you will find my assessment and recommendations from our encounter today. Please do not hesitate to contact me with any questions or concerns. Sincerely, Tia Webb PA-C [facility] [place] [address] The following document(s) were included in the letter: March 15, 2023 12:49:11 EDT - (03/15/2023) Neurosurgery Office Visit Note Normal [facility] LITHIUMon 12-31-2021 [place] (Eskalith(R)), Serum 0.5 mmol/L Normal 0.5-1.2 [facility] Comment on above: Result Comment: Plas ma concentration of 0.5 - 0.8 mmol/L are advised for long-term use; concentrations of up to 1.2 mmol/L may be necessary during acute treatment. Detection Limit = 0.1 <0.1 indicates None Detected Performed By: #### L ITHIUM ####[facility] [address] [address]DrMartín Vijay Ariel FREE T3on 12-29-2021 FREE T3 2.57 pg/mlL Normal 2.18-3.98 [facility] Comment on above: Performed By: #### T SH, FT3 #### [facility] [address] [address] Vijay George FREE T4on 12-29-2021 Free T4 [Mass/Vol] 1.08 ng/dL Normal 0.76-1.46 [facility] Comment on above: Performed By: #### F T4 ####[facility] [address] [address]DrMartín Vijay George TSHon 12-29-2021 TSH 1.091 uIU/mL Normal 0.358-3.740 [facility] Comment on above: Performed By: #### T SH, FT3 ####[facility] [address] [address]DrMartín Vijay George LITHIUMon 10-01-2021 [place] (Eskalith(R)), Serum 0.4 mmol/L Critically low 0.5-1.2 [facility] Comment on above: Result Comment: Plas ma concentration of 0.5 - 0.8 mmol/L are advised for long-term use; concentrations of up to 1.2 mmol/L may be necessary during acute treatment. Detection Limit = 0.1 <0.1 indicates None Detected Performed By: #### L ITHIUM ####[facility] [address] [id number]. Vijay George FREE T3on 09-29-2021 FREE T3 1.92 pg/mlL Critically low 2.18-3.98 [facility] Comment on above: Performed By: #### T SH, FT3 ####[facility] [address] [address]DrMartín Vijay George FREE T4on 09-29-2021 Free T4 [Mass/Vol] 1.07 ng/dL Normal 0.76-1.46 [facility] Comment on above: Performed By: #### F T4 ####[facility] [address] [address]DrMartín Vijay George TSHon 09-29-2021 TSH 3.695 uIU/mL Normal 0.358-3.740 [facility] Comment on above: Performed By: #### T SH, FT3 ####[facility] [address] [address]Dr. Vijay George TSH RANGE SEE BELOW Normal [facility] Comment on above: Result Comment: <0.3 4 UIU/ml HYPERTHYROID 0.34-5.60 UIU/ml EUTHYROID >5.60 UIU/ml HYPOTHYROID Performed By: #### T SH, FT3 ####[facility] [address] [address]DrMartín George LITHIUMon 07-02-2021 [place] (Eskalith(R)), Serum 0.8 mmol/L Normal 0.5-1.2 [facility] Comment on above: Result Comment: Plas ma concentration of 0.5 - 0.8 mmol/L are advised for long-term use; concentrations of up to 1.2 mmol/L may be necessary during acute treatment. Detection Limit = 0.1 <0.1 indicates None Detected Performed By: #### L ITHIUM #### [facility] [address] [address] [address] Vijay George CBC AUTO DIFFon 06-30-2021 BASO # 0.1 103/ul Normal 0.0-0.1 [facility] Comment on above: Performed By: #### C BC ####[facility] [address] [address]DrMartín George Basophils/100 WBC (Bld) 1.0 % Normal 0.2-2.0 [facility] Comment on above: Performed By: #### C BC ####[facility] [address] [address]Dr. Vijay George EO # 0.4 103/ul Normal 0.0-0.7 [facility] Comment on above: Performed By: #### C BC ####[facility] [address] [address]Dr. Vijay George Eosinophils/100 WBC (Bld) 5.5 % Normal 0.9-7.0 [facility] Comment on above: Performed By: #### C BC ####[facility] [address] [address]Dr. Vijay George Erythrocyte distribution width (RBC) [Ratio] 12.8 % Normal 11.0-15.0 [facility] Comment on above: Performed By: #### C BC ####[facility] [address] [address]Dr. Vijay George Hematocrit (Bld) [Volume fraction] 42.3 % Normal 36.0-48.0 [facility] Comment on above: Performed By: #### C BC ####[facility] [address] [place], [place] [address]Dr. Vijay George Hemoglobin (Bld) [Mass/Vol] 13.1 g/dL Normal 12.0-16.0 [facility] Comment on above: Performed By: #### C BC ####[facility] [address] [place], [place] [address]Dr. Vijay George IG # 0.02 10e3/ul Normal 0.00-0.03 [facility] Comment on above: Performed By: #### C BC ####[facility] [address] [place], [place] [address]Dr. Vijay George IG % 0.2 % Normal 0.0-0.5 [facility] Comment on above: Performed By: #### C BC ####[facility] [address] [place], [place] [address]Dr. Vijay George LYMPH # 1.6 103/ul Normal 1.2-3.8 [facility] Comment on above: Performed By: #### C BC ####[facility] [address] [place], [place] [address]Dr. Vijay George Lymphocytes/100 WBC (Bld) 19.4 % Critically low 20.5-60.0 [facility] Comment on above: Performed By: #### C BC ####[facility] [address] [place], [place] [address]Dr. Vijay George MANUAL DIFF REQ NO Normal [facility] Comment on above: Performed By: #### C BC ####[facility] [address] [address]Dr. Vijay Ariel MCH (RBC) [Entitic mass] 29.8 pg Normal 26.7-34.0 [facility] Comment on above: Performed By: #### C BC ####[facility] [address] [address]Dr. Vijay Ariel MCHC (RBC) [Mass/Vol] 31.0 g/dL Normal 29.9-35.2 [facility] Comment on above: Performed By: #### C BC ####[facility] [address] [address]Dr. Vijay George MCV (RBC) [Entitic vol] 96.4 fL Normal 81.0-99.0 [facility] Comment on above: Performed By: #### C BC ####[facility] [address] [place], [place] [address]Dr. Vijay George MONO # 0.5 103/ul Normal 0.3-0.8 [facility] Comment on above: Performed By: #### C BC ####[facility] [address] [place], [place] [address]Dr. Vijay George Monocytes/100 WBC (Bld) 6.1 % Normal 1.7-12.0 [facility] Comment on above: Performed By: #### C BC ####[facility] [address] [place], [place] [address]Dr. Vijay George NEUT # 5.4 103/ul Normal 1.4-6.5 [facility] Comment on above: Performed By: #### C BC ####[facility] [address] [place], [place] [address]DrMartín George Neutrophils/100 WBC (Bld) 67.8 % Normal 43.0-75.0 [facility] Comment on above: Performed By: #### C BC ####[facility] [address] [place], [place] [address]DrMartín George Platelet mean volume (Bld) [Entitic vol] 10.4 fL Normal 9.5-13.5 [facility] Comment on above: Performed By: #### C BC ####[facility] [address] [address]Dr. Jazlynkale Ariel PLT 313 103/ul Normal 150-450 [facility] Comment on above: Performed By: #### C BC ####[facility] [address] [address]Dr. Jazlynkale Ariel RBC 4.39 106/ul Normal 4.20-5.40 [facility] Comment on above: Performed By: #### C BC ####[facility] [address] [address]Dr. Vijay George WBC 8.0 103/ul Normal 4.0-11.0 [facility] Comment on above: Performed By: #### C BC ####[facility] [address] [address]DrMartín George FREE T3on 06-30-2021 FREE T3 2.14 pg/mlL Critically low 2.77-5.27 [facility] Comment on above: Performed By: #### B MP, TSH, FT3, LIVER, LIPID #### [facility] [address] [address] [address] Vijay George FREE T4on 06-30-2021 Free T4 [Mass/Vol] 1.24 ng/dL Normal 0.78-2.19 [facility] Comment on above: Performed By: #### V ITAD, FT4 ####[facility] [address] [id number] George GLYCOHEMOGLOBIN A1Con 2021 ADA RECOMMENDATION ADA THERAPEUTIC TARG ET 6.0 - 7.0 ACTION SUGGESTED > 7.0 Normal [facility] Comment on above: Performed By: #### A 1C #### [facility] [address] [address] [address] Vijay George Glucose [Mass/Vol] 108 mg/dL Normal [facility] Comment on above: Performed By: #### A 1C #### [facility] [address] [place] [address] Dr. Vijay George HbA1c (Bld) [Mass fraction] 5.4 % Normal <=6.0 [facility] Comment on above: Performed By: #### A 1C #### [facility] [address] [place] [address] Dr. Vijay George LIPID PROFILEon 06-30-2021 CHOL-HDL RATIO NORM SEE BELOW Normal [facility] Comment on above: Result Comment: 3.3 - 4.4 LOW RISK 4.4 - 7.1 AVERAGE RISK 7.1 - 11.0 MODERATE RISK >11.0 HIGH RISK Performed By: #### B MP, TSH, FT3, LIVER, LIPID #### [facility] [address] [place] [address] Dr. Vijay George Cholesterol [Mass/Vol] 223 mg/dL Critically high <=200 [facility] Comment on above: Performed By: #### B MP, TSH, FT3, LIVER, LIPID #### [facility] [address] [place] [address] Dr. Vijay George Cholesterol in HDL [Mass/Vol] 56 mg/dL Normal [facility] Comment on above: Performed By: #### B MP, TSH, FT3, LIVER, LIPID #### [facility] [address] [place] [address] Dr. Vijay George Cholesterol in LDL [Mass/Vol] 115.8 mg/dL Normal [facility] Comment on above: Performed By: #### B MP, TSH, FT3, LIVER, LIPID #### [facility] [address] [place] [address] Dr. Vijay George Cholesterol.total/Ch olesterol in HDL [Mass ratio] 4.0 {ratio} Normal [facility] Comment on above: Performed By: #### B MP, TSH, FT3, LIVER, LIPID #### [facility] [address] [place] [address] Dr. Vijay George HDL NORMAL > or = 60 mg/dl - LO W CARDIOVASCULAR RISK <40 mg/dl - HIGH CARDIOVASCULAR RISK Normal [facility] Comment on above: Performed By: #### B MP, TSH, FT3, LIVER, LIPID #### [facility] [address] [address] [address] Vijay George LDL CALC NORMAL SEE BELOW Normal [facility] Comment on above: Result Comment: <100 mg/dl OPTIMAL 100 - 129 mg/dl NEAR OR ABOVE OPTIMAL 130 - 159 mg/dl BORDERLINE HIGH 160 - 189 mg/dl HIGH >190 mg/dl VERY HIGH Performed By: #### B MP, TSH, FT3, LIVER, LIPID #### [facility] [address] [address] [address] Vijay George Triglyceride [Mass/Vol] 256 mg/dL Critically high <=150 [facility] Comment on above: Performed By: #### B MP, TSH, FT3, LIVER, LIPID #### [facility] [address] [place] [address] Dr. Vijay George VLDL CALC 51.2 mg/dL Normal [facility] Comment on above: Performed By: #### B MP, TSH, FT3, LIVER, LIPID #### [facility] [address] [place] [address] Dr. Vijay George LIVER PROFILEon 06-30-2021 Albumin [Mass/Vol] 4.0 g/dL Normal 3.5-5.0 [facility] Comment on above: Performed By: #### B MP, TSH, FT3, LIVER, LIPID #### [facility] [address] [place] [address] Dr. Vijay George Albumin/Globulin [Mass ratio] 1.0 {ratio} Normal [facility] Comment on above: Performed By: #### B MP, TSH, FT3, LIVER, LIPID #### [facility] [address] [address] [address] Vijay George ALP [Catalytic activity/Vol] 97 U/L Normal 38-126 [facility] Comment on above: Performed By: #### B MP, TSH, FT3, LIVER, LIPID #### [facility] [address] [address] [address] Vijay George ALT [Catalytic activity/Vol] 25 U/L Normal 9-52 [facility] Comment on above: Performed By: #### B MP, TSH, FT3, LIVER, LIPID #### [facility] [address] [place] [address] Dr. Vijay George AST [Catalytic activity/Vol] 21 U/L Normal 14-36 [facility] Comment on above: Performed By: #### B MP, TSH, FT3, LIVER, LIPID #### [facility] [address] [place] [address] Dr. Vijay George BILI, CONJUGATED 0.0 mg/dL Normal 0.0-0.3 [facility] Comment on above: Performed By: #### B MP, TSH, FT3, LIVER, LIPID #### [facility] [address] [place] [address] Dr. Vijay George Bilirubin [Mass/Vol] 0.2 mg/dL Normal 0.2-1.3 [facility] Comment on above: Performed By: #### B MP, TSH, FT3, LIVER, LIPID #### [facility] [address] [place] [address] Dr. Vijay George Globulin (S) [Mass/Vol] 4.2 g/dL Normal [facility] Comment on above: Performed By: #### B MP, TSH, FT3, LIVER, LIPID #### [facility] [address] [place] [address] Dr. Vijay George Protein [Mass/Vol] 8.2 g/dL Normal 6.1-8.2 [facility] Comment on above: Performed By: #### B MP, TSH, FT3, LIVER, LIPID #### [facility] [address] [place] [address] Dr. Vijay George PROF CHEM 8 (BAS METB)on Anion gap [Moles/Vol] 10.1 mmol/L Normal [facility] Comment on above: Performed By: #### B MP, TSH, FT3, LIVER, LIPID #### [facility] [address] [place] [address] Dr. Vijay George Calcium [Mass/Vol] 9.7 mg/dL Normal 8.4-10.2 [facility] Comment on above: Performed By: #### B MP, TSH, FT3, LIVER, LIPID #### [facility] [address] [address] [address] Vijay George Chloride [Moles/Vol] 101 mmol/L Normal 98-107 [facility] Comment on above: Performed By: #### B MP, TSH, FT3, LIVER, LIPID #### [facility] [address] [place] [address] Dr. Vijay George CO2 [Moles/Vol] 32.1 mmol/L Critically high 22.0-30.0 [facility] Comment on above: Performed By: #### B MP, TSH, FT3, LIVER, LIPID #### [facility] [address] [place] [address] Dr. Vijay George Creatinine [Mass/Vol] 0.82 mg/dL Normal 0.52-1.04 [facility] Comment on above: Performed By: #### B MP, TSH, FT3, LIVER, LIPID #### [facility] [address] [place] [address] Dr. Vijay George EGFR-AF KENYAN >60 Normal >=60 [facility] Comment on above: Performed By: #### B MP, TSH, FT3, LIVER, LIPID #### [facility] [address] [place] [address] Dr. Vijay George EGFR-NON AF KENYAN >60 Normal >=60 [facility] Comment on above: Performed By: #### B MP, TSH, FT3, LIVER, LIPID #### [facility] [address] [place] [address] Dr. Vijay George Glucose [Mass/Vol] 107 mg/dL Critically high 74-106 [facility] Comment on above: Performed By: #### B MP, TSH, FT3, LIVER, LIPID #### [facility] [address] [place] [address] Dr. Vijay George Potassium [Moles/Vol] 4.2 mmol/L Normal 3.4-5.0 [facility] Comment on above: Performed By: #### B MP, TSH, FT3, LIVER, LIPID #### [facility] [address] [address] [address] Vijay George Sodium [Moles/Vol] 139 mmol/L Normal 137-145 [facility] Comment on above: Performed By: #### B MP, TSH, FT3, LIVER, LIPID #### [facility] [address] [address] [address] Vijay George Urea nitrogen [Mass/Vol] 15.0 mg/dL Normal 7.0-17.0 [facility] Comment on above: Performed By: #### B MP, TSH, FT3, LIVER, LIPID #### [facility] [address] [address] [address] Vijay George Urea nitrogen/Creatinine [Mass ratio] 18.3 mg/mg Normal [facility] Comment on above: Performed By: #### B MP, TSH, FT3, LIVER, LIPID #### [facility] [address] [address] [address] Vijay George TSHon 06-30-2021 TSH 7.199 uIU/mL Critically high 0.470-4.680 [facility] Comment on above: Performed By: #### B MP, TSH, FT3, LIVER, LIPID #### [facility] [address] [address] [address] Vijay George TSH RANGE SEE BELOW Normal [facility] Comment on above: Result Comment: <0.3 4 UIU/ml HYPERTHYROID 0.34-5.60 UIU/ml EUTHYROID >5.60 UIU/ml HYPOTHYROID Performed By: #### B MP, TSH, FT3, LIVER, LIPID #### [facility] [address] [address] [address] Vijay George VITAMIN D 25 OHon 06-30-2021 VIT D 25-OH 33.8 ng/mL Normal [facility] Comment on above: Performed By: #### V ITAD, FT4 ####[facility] [address] [address]Dr. Vijay George VIT D RANGES SEE BELOW Normal [facility] Comment on above: Result Comment: <20 ng/mL Vit D deficient 20 - <30 ng/mL Vit D insufficient 30 - 100 ng/mL Vit D sufficient >100 ng/mL Potential Toxicity Performed By: #### V ITAD, FT4 ####[facility] [address] [address]Dr. Vijay George PAP ACOG PANEL 2: 30 to 65on 06-06-2021 . . Normal [facility] Comment on above: Result Comment: Perf ormed at: WB Performed By: #### [id number] #### [facility] [address] [address] [address] Vijay George Age Gdln ACOG Testing 30-65 Normal [facility] Comment on above: Performed By: #### [id number] #### [facility] [address] [place] [address] Dr. Vijay George DIAGNOSIS: Comment Normal [facility] Comment on above: Result Comment: NEGA TIVE FOR INTRAEPITHELIAL LESION OR MALIGNANCY. THIS SPECIMEN WAS RESCREENED PART OF OUR BREAST WORKER PROGRAM. Performed at: WB Performed By: #### [id number] #### [facility] [address] [place] [address] Dr. Vijay George HPV Aptima Negative Normal Negative [facility] Comment on above: Result Comment: This nucleic acid amplification test detects fourteen high-risk HPV types (16,18,31,33,35,39,45,51,52,56,58,59,66,68) without differentiation. Performed at: =G Performed By: #### [id number] #### [facility] [address] [address] [address] Vijay George Methodology: Comment Normal [facility] Comment on above: Result Comment: This liquid based ThinPrep(R) pap test was screened with the use of an image guided system. Performed at: WB Performed By: #### [id number] #### [facility] [address] [place] [address] Dr. Vijay George Note: Comment Normal [facility] Comment on above: Result Comment: The Pap smear is a screening test designed to aid in the detection of premalignant and malignant conditions of the uterine cervix. It is not a diagnostic procedure and should not be used as the sole means of detecting cervical cancer. Both false-positive and false-negative reports do occur. . Performed at: WB Performed By: #### [id number] #### [facility] [address] [address] [address] Vijay George Performed by: Comment Normal [facility] Comment on above: Result Comment: Kiah Salmeron, Lease Buyer (ASCP) Performed at: WB Performed By: #### [id number] #### [facility] [address] [address] [address] Vijay George QC reviewed by: Comment Normal [facility] Comment on above: Result Comment: Urban Wetzel, Supervisory Lease Buyer (ASCP) Performed at: WB Performed By: #### [id number] #### [facility] [address] [place] [address] Dr. Vijay George Specimen adequacy: Comment Normal [facility] Comment on above: Result Comment: Sati sfactory for evaluation. No endocervical component is identified. Performed at: WB Performed By: #### [id number] #### [facility] [address] [place] [address] Dr. Vijay George MRI LSPINE WO CONon 05-06-20 21 MRI LSPINE WO CON EXAMINATION: MRI LSPINE [...] by: WAYNE KAPLAN Date: 2021-05-06 14:14 Normal [facility] MRI SHOULDER LT WO CONon MRI SHOULDER [...] by: THERESA HARRIS Date: 2021-05-06 14:52 Normal [facility] Vital Signs Date Time Vital Sign Value Performing Clinician Facility 08-19-2023 13:54-0400 Body height 167.6 cm Sonali Lopez PA Work Phone: [facility] 08-19-2023 13:54-0400 Body mass index (BMI) [Ratio] 31.96 kg/m2 Sonali Ramenberg PA Work Phone: [facility] 08-19-2023 13:54-0400 Body weight 89.81 kg Sonali Nienberg PA Work Phone: [facility] 08-19-2023 13:54-0400 Diastolic blood pressure 79 mm[Hg] Sonali Nienberg PA Work Phone: [facility] 08-19-2023 13:54-0400 Heart rate 71 /min Sonali Nienberg PA Work Phone: [facility] 08-19-2023 13:54-0400 Respiratory rate 18 /min Sonali Nienberg PA Work Phone: [facility] 08-19-2023 13:54-0400 SaO2% (BldA) [Mass fraction] 97 % Sonali Nienberg PA Work Phone: [facility] 08-19-2023 13:54-0400 Systolic blood pressure 119 mm[Hg] Sonali Nienberg PA Work Phone: [facility] 06-24-2023 12:18-0500 Diastolic blood pressure 80 mm[Hg] Sonali Nienberg PA Work Phone: [facility] 06-24-2023 12:18-0500 Heart rate 67 /min Sonali Nienberg PA Work Phone: [facility] 06-24-2023 12:18-0500 Respiratory rate 20 /min Sonali Nienberg PA Work Phone: [facility] 06-24-2023 12:18-0500 Systolic blood pressure 124 mm[Hg] Sonali Nienberg PA Work Phone: [facility] 05-22-2021 15:00-0500 Body height 167.64 cm Jose Alfredo Perez Other [employer] Other 05-22-2021 15:00-0500 Body mass index (BMI) [Ratio] 30.66 kg/m2 Jose Alfredo Perez Other [employer] Other 05-22-2021 15:00-0500 Body weight 86.18 kg Jose Alfredo Perez Other [employer] Other Encounters Encounter Date Encounter Type Care Provider Facility Start: 01-12-2024 ambulatory Viral Rosario acility:[facility] Start: 01-10-2024 End: 01-10-2024 ambulatory HITESH OBREGON Not Available Start: 12-07-2023 End: 12-07-2023 ambulatory DEVIN PETTY Not Available Start: 11-01-2023 End: 11-01-2023 ambulatory ADORE MENDOZA Not Available Start: 10-29-2023 End: 10-29-2023 ambulatory Selma Olvera MD Facility:[facility] [place] Start: 10-20-2023 End: 10-20-2023 ambulatory HITESH OBREGON Not Available Start: 10-19-2023 End: 10-19-2023 ambulatory Tia Webb PA-C Facility:[facility] Start: 10-01-2023 End: 10-01-2023 ambulatory Tia Webb PA-C Facility:[facility] Start: 09-13-2023 End: 09-13-2023 ambulatory Tia Webb PA-C Facility:[facility] Start: 09-04-2023 End: 09-04-2023 ambulatory ANURAG NAGY [facility] Start: 09-03-2023 End: 09-03-2023 ambulatory OTIS VAZQUEZ [facility] Start: 08-19-2023 End: 08-19-2023 ambulatory SONALI LOPEZ [facility] Start: 08-19-2023 End: 08-19-2023 Office outpatient visit 25 minutes Sonali LARSEN Work Phone: [facility] Comment on above: Lumbosacral spondylo sis without myelopathy (Primary Dx) Start: 07-23-2023 End: 07-23-2023 ambulatory [facility] Start: 07-23-2023 End: 07-23-2023 ambulatory [facility] Start: 07-19-2023 End: 07-19-2023 ambulatory LUZ MARIA CANTU [facility] Start: 07-10-2023 End: 07-10-2023 ambulatory ANURAG HARGROVEElise [facility] Start: 07-09-2023 End: 07-09-2023 ambulatory [facility] Start: 06-24-2023 End: 06-24-2023 Office outpatient visit 25 minutes Sonali LARSEN Work Phone: [facility] Comment on above: Lumbosacral spondylo sis without myelopathy (Primary Dx) Start: 06-24-2023 End: 06-24-2023 ambulatory SONALI LOPEZ [facility] Start: 06-09-2023 Telephone encounter Sonali LARSEN Work Phone: [facility] Start: 05-31-2023 End: 05-31-2023 ambulatory Tia Webb PA-C Facility:[facility] Start: 05-13-2023 End: 05-13-2023 ambulatory Tia Webb PA-C Facility:[facility] Start: 04-26-2023 End: 04-26-2023 ambulatory HITESH OBREGON Not Available Start: 03-15-2023 End: 03-15-2023 ambulatory Sonali Lopez PA-C Facility:[facility] Start: 12-29-2021 End: 12-30-[address] HITESH OBREGON Facility:[facility] Start: 09-29-2021 End: 09-30-[address] HITESH OBREGON Facility:[facility] Start: 07-04-2021 Encounter for genera l adult medical examination without abnormal findings DR HITESH OBREGON [facility] Start: 06-30-2021 End: 07-01-[address] HITESH OBREGON Facility:[facility] Start: 06-30-2021 End: 07-01-2021 Encounter for general adult medical examination without abnormal findings DR HITESH OBREGON Facility:[facility] Start: 06-02-2021 End: 06-02-[address] DEVIN PETTY Facility:[facility] Start: 05-22-2021 End: 05-22-2021 ambulatory Jose Alfredo Perez Other [facility] [employer] Other Start: 05-22-2021 Office outpatient ne w 30 minutes Jose Alfredo Perez [facility] Start: 05-06-2021 End: 05-07-[address] HITESH OBREGON Facility:[facility] Plan of Treatment Date Care Activity Detail Author Start: 08-18-2024 Adult BMI Screening Adult BMI Screen ing [facility] Start: 08-18-2024 Tobacco Screening Tobacco Screening [facility] Start: 06-24-2024 Tobacco Screening Tobacco Screening [facility] Start: 02-26-2024 Adult BMI Screening Adult BMI Screen ing [facility] Start: 02-26-2024 Tobacco Screening Tobacco Screening [facility] Start: 09-16-2023 End: 09-16-2023 Patient encounter procedure 09/16/2023 12:15 PM EDT Office Visit [facility] [address] [place] [id number] Sonali Lopez, PA [address] [place] [address] [facility] Start: 09-03-2023 End: 09-03-2023 Admission to same day surgery center 09/03/2023 12:17 PM EDT - 09/03/2023 12:25 PM EDT Surgery [facility] [address] [place] [id number] Otis Vazquez MD [address] [place] [address] INJECTION BLOCK NERVE MEDIAL BRANCH: left L45 51 [51457 (CPT )] [facility] Comment on above: INJECTION BLOCK NERV E MEDIAL BRANCH: left L45 51 [09252 (CPT )] Start: 09-03-2023 End: 09-03-2023 Njx dx/ther agt pvrt facet jt lmbr/sac 1 level INJECTION BLOCK NERVE MEDIAL BRANCH Lumbosacral spondylosis without myelopathy 09/03/2023 12:17 PM EDT [facility] Start: 09-03-2023 Subsequent hospital visit by physician 09/03/2023 12:17 PM EDT Hospital Encounter [facility] [address] [place] [address] Otis Vazquez MD [address] [place], [place] [id number] [facility] Start: 08-19-2023 End: 08-19-2023 Patient encounter procedure 08/19/2023 1:30 PM EDT Office Visit [facility] [address] [place] [id number] Sonali Lopez PA [address] [place], [place] [id number] [facility] Start: 07-23-2023 End: 07-23-2023 Admission to same day surgery center 07/23/2023 1:00 PM EST - 07/23/2023 1:12 PM EST Surgery [facility] [address] [place] [address] Otis Vazquez MD [address] [place] [address] RADIOFREQUENCY ABLATION SPINAL: left L 4/5, 5/1 [66756 (CPT )] [facility] Comment on above: RADIOFREQUENCY ABLAT ION SPINAL: left L 4/5, 5/ [95875 (CPT )] Start: 07-23-2023 End: 07-23-2023 Dstr nrolytc agnt parverteb fct sngl lmbr/sacral RADIOFREQUENCY ABLATION SPINAL Lumbosacral spondylosis without myelopathy 07/23/2023 1:00 PM EST [facility] Start: 07-23-2023 Subsequent hospital visit by physician 07/23/2023 1:00 PM EST Hospital Encounter [facility] [address] [place] [address] Otis Vazquez MD [address] [place] [address] [facility] Start: 07-09-2023 End: 07-09-2023 Admission to same day surgery center 07/09/2023 2:12 PM EST - 07/09/2023 2:24 PM EST Surgery [facility] [address] [place] [address] Otis Vazquez MD [address] [place] [address] RADIOFREQUENCY ABLATION SPINAL: right L 4/5, 5/1 [36212 (CPT )] [facility] Comment on above: RADIOFREQUENCY ABLAT ION SPINAL: right L 4/5, 5/1 [94027 (CPT )] Start: 07-09-2023 End: 07-09-2023 Dstr nrolytc agnt parverteb fct sngl lmbr/sacral RADIOFREQUENCY ABLATION SPINAL Lumbosacral spondylosis without myelopathy 07/09/2023 2:12 PM EST [facility] Start: 07-09-2023 Subsequent hospital visit by physician 07/09/2023 2:12 PM EST Hospital Encounter [facility] [address] [facility] [place] [phone] Otis Vazquez MD [address] [place], [place] [id number] [facility] Start: 01-22-2023 COVID-19 Vaccine ( season) COVID-19 Vaccine () [facility] Start: 01-22-2023 Influenza vaccination Influenza Vacc ine [facility] Start: 09-08-1994 DTaP,Tdap and Td Vaccines (1 - Tdap) DTaP,Tdap and Td Vaccines (1 - Tdap) [facility] Start: 09-08-1993 Adult BMI Follow Up Plan Adult BMI F ollow Up Plan [facility] Start: 1987 Depression Screening Depression Scre [facility] Payers Date Payer Category Payer Self-pay 2022 Medicaid [place] [id number] 2022-Present [address] [place] [address] [id number] 2022 Medicaid [id number] 2022 Unknown 1975 Unknown [id number] 2..840.1.853740.3.579.2.593 1975 Unknown [id number] 2.16.840.1.060929.3.579.2.593 1975 Unknown [id number] 2..840.1.209776.3.579.2.593 1975 Unknown [id number] 2.16.840.1.511559.3.579.2.593 1975 Unknown [id number] 2.16.840.1.722696.3.579.2.593 1975 Unknown [id number] 2.16.840.1.953206.3.579.2.1285 1975 Unknown [id number] 2.16.840.1.403319.3.579.2.1285 1975 Unknown [id number] 2.16.840.1.352900.3.579.2.1285 1975 Unknown [id number] 2.16.840.1.289838.3.579.2.1285 1975 Unknown [id number] 2.16.840.1.805054.3.579.2.1285 1975 Unknown [id number] 2.16840.1.504283.3.579.2.1285 1975 Unknown [id number] 2.16.840.1.058535.3.579.2.1285 1975 Unknown [id number] 2.16.840.1.901677.3.579.2.1285 1975 Unknown [id number] 2.16.840.1.631933.3.579.2.1285 1975 Unknown [id number] 2.16840.1.626223.3.579.2.1285 1975 Unknown [id number] 2.16.840.1.548026.3.579.2.1285 1975 Unknown [id number] 2.16.840.1.165569.3.579.2.1285 1975 Unknown [id number] 2.16.840.1.679743.3.579.2.1285 1975 Unknown [id number] 2.16.840.1.661457.3.579.2.196 1975 Unknown [id number] 2.16.840.1.351287.3.579.2.196 1975 Unknown [id number] 2.16.840.1.368049.3.579.2. 1975 Unknown [id number] 2.16.840.1.586845.3.579.2.196 1975 Unknown [id number] 2.16.840.1.329287.3.579.2. 1975 Unknown [id number] 2.16.840.1.068206.3.579.2. 1975 Unknown [id number] 2.16.840.1.746270.3.579.2. 1975 Unknown [id number] 2.16.840.1.204981.3.579.2. 1975 Unknown [id number] 2.16.840.1.258087.3.579.2.1258 1975 Unknown [id number] 2.16.840.1.119965.3.579.2.1258 1975 Unknown [id number] 2.16.840.1.203133.3.579.2.1258 1975 Unknown [id number] 2.16.840.1.795503.3.579.2.9 1975 Unknown [id number] 2.16.840.1.161984.3.579.2.9 1959 Unknown [id number] 2.16.840.1.392189.19 1959 Unknown [id number] Unknown [id number] 2.16.840.1.440323.3.579.2.531 Social History Date Type Detail Facility Start: 12-27-2019 End: 07-04-2020 Sex Assigned At [facility] Start: 08-07-2022 Tobacco smoking stat [facility] Never smoked tobacco [facility] Work Phone: Start: 08-07-2022 Tobacco use and exposure Smoke less tobacco non-user [facility] Start: 02-25-2023 End: 08-19-2023 Alcohol intake Ex-drinker (finding) [facility] Start: 12-27-2019 End: 07-04-2020 History of Social function [facility] Frequency of Alcohol Consumption Never [facility] Start: 1975 Sex Assigned At Not on file P [facility] Clinical Notes 08-23-2015 to 08-19-2023 CHAVA Rose - 08/19/2023 1:30 PM EDTPatient InstructionsMattCHAVA Castellon - 06/24/2023 12:15 PM ESTPatient InstructionsTelephone Encounter - Mago Juan - 06/09/2023 2:23 PM EST Note Date & Type Note Facility 08-19-2023 History of Presen t illness Narrative [facility] [address] [place] [address] Patient: Mariana Victor Sex: female : 1975 Age: 47 y.o. PCP: HITESH OBREGON MD 08/19/2023 Mariana Victor is here for a(n) post procedure follow [...] relief 08/07/22 Caudal with no relief 09/11/22 Sindey SI Inj w/100% relief for 1 week [...] shoulder only 2021),Chiropractor min relief. Facets in [place] years ago with mod relief. NSAID (Naproxen) mod relief. Trazadone mild relief with sleep. Cymbalta with mild relief. Prednisone with mod relief. Ice/ heat short term min relief. The treatment provided moderate relief. The effect of pain on patient's ADLS: Moderate Impairment. Past Medical History: Diagnosis Date Anxiety Bipolar 1 disorder ([facility]) Chronic pain disorder DDD (degenerative disc disease), lumbar Depression Fibromyalgia GERD (gastroesophageal reflux disease) Graves disease Hiatal hernia Insulin resistance Low back pain Numbness and tingling Past Surgical History: Procedure Laterality Date CHOLECYSTECTOMY HYSTERECTOMY INJECTION BLOCK EPIDURAL CAUDAL STEROID N/A 08/07/2022 Performed by Otis Vazquez MD at [facility] INJECTION BLOCK EPIDURAL CAUDAL STEROID N/A 06/05/2022 Performed by Otis Vazquez MD at [facility] INJECTION BLOCK NERVE MEDIAL BRANCH: bilat L 4/5 5/1 Bilateral 08/08/2021 Performed by Otis Vazquez MD at [facility] INJECTION BLOCK NERVE MEDIAL BRANCH: bilat L 4/5 5/1 Bilateral 07/14/2021 Performed by Otis Vazquez MD at [facility] INJECTION BLOCK SACROILIAC JOINT Bilateral 01/15/2023 Performed by Otis Vazquez MD at [facility] INJECTION BLOCK SACROILIAC JOINT Bilateral 09/11/2022 Performed by Otis Vazquez MD at [facility] RADIOFREQUENCY ABLATION SPINAL: left L 4/5 5/1 Left 03/13/2022 Performed by Otis Vazquez MD at [facility] RADIOFREQUENCY ABLATION SPINAL: right L 4/5 5/1 Right 02/27/2022 Performed by Otis Vazquez MD at [facility] RADIOFREQUENCY ABLATION SPINAL: right L 4/5, 5/1 Right 07/09/2023 Performed by Otis Vazquez MD at [facility] SHOULDER SURGERY Left 2021 2021 Allergies [...] negative bilaterally. Gait is normal. Assessment/Treatment Plan: Mariana was seen today for back pain. Diagnoses [...] Rose 08/19/23 [id number] documented in this encounter [facility] 08-19-2023 Instructions Jeimy Suero CNA - 08/19/2023 [...] nearest emergency [facility]. [facility] History of Presen t illness Narrative [facility] [address] [place] [place] [address] Patient: Mariana Victor Sex: female : 1975 Age: 47 y.o. PCP: HITESH OBREGON MD 06/24/2023 Mariana Victor is here for a follow up after seeing neurosurgeon in [place]. Patient reports he recommended repeat Lumbar RFA. Chief Complaint Patient presents with Back Pain HPI: PT/HEP (for shoulder only 2021 back was >2013) no relief reported Back: 07/14/21 Bilateral L4/5, [...] shoulder only 2021),Chiropractor min relief. Facets in [place] years ago with mod relief. NSAID (Naproxen) mod relief. Trazadone mild relief with sleep. Cymbalta with mild relief. Prednisone with mod relief. Ice/ heat short term min relief. The treatment provided moderate relief. The effect of pain on patient's ADLS: Moderate Impairment. Past Medical History: Diagnosis Date Anxiety Bipolar 1 disorder ([facility] [facility]) Chronic pain disorder DDD (degenerative disc disease), lumbar Depression Fibromyalgia GERD (gastroesophageal reflux disease) Graves disease Hiatal hernia Insulin resistance Low back pain Numbness and tingling Past Surgical History: Procedure Laterality Date CHOLECYSTECTOMY HYSTERECTOMY INJECTION BLOCK EPIDURAL CAUDAL STEROID N/A 08/07/2022 Performed by Otis Vazquez MD at [facility] INJECTION BLOCK EPIDURAL CAUDAL STEROID N/A 06/05/2022 Performed by Otis Vazquez MD at [facility] INJECTION BLOCK NERVE MEDIAL BRANCH: bilat L 4/5 5/1 Bilateral 08/08/2021 Performed by Otis Vazquez MD at [facility] INJECTION BLOCK NERVE MEDIAL BRANCH: bilat L 4/5 5/1 Bilateral 07/14/2021 Performed by Otis Vazquez MD at [facility] INJECTION BLOCK SACROILIAC JOINT Bilateral 01/15/2023 Performed by Otis Vazquez MD at [facility] INJECTION BLOCK SACROILIAC JOINT Bilateral 09/11/2022 Performed by Otis Vazquez MD at [facility] RADIOFREQUENCY ABLATION SPINAL: left L 4/5 5/1 Left 03/13/2022 Performed by Otis Vazquez MD at [facility] RADIOFREQUENCY ABLATION SPINAL: right L 4/5 5/1 Right 02/27/2022 Performed by Otis Vazquez MD at [facility] SHOULDER SURGERY Left 2021 2021 Allergies [...] normal pain. Gait is normal. Assessment/Treatment Plan: Mariana was seen today for back pain. Diagnoses [...] Rose 07/01/23 0934 documented in this encounter [facility] 06-24-2023 Instructions Jeimy Suero CNA - 06/24/2023 12:15 PM EST [...] back to normal. [facility] Miscellaneous Notes Returned patient's call. She wanted an appointment for another round of nerve rodriguez. No answer. Full voicemail. [facility]2023 Telephone encounter Note Returned patient's call. She wanted an appointment for another round of nerve rodriguez. No answer. Full voicemail. [facility] Evaluation note Encounter Date Diagnosis Assessment [...] and we will refer her to the [facility]. Apr, Degeneration of intervertebral disc at L5-S1 level (ICD-10 - M51.37) [facility] [employer] Other 04-01-2016 History general Narrative - Reported* Type Description Date Medical History graves disease Medical History acid reflux Medical History anxiety Medical History 08/23/2015 EGD/Colon oscopy-tiny hiatal hernia, noraml colonoscopy,hemorrhoids Medical History fibromyalgia Surgical History cholecystectomy Surgical History hysterectomy Hospitalization History see above [employer] Other evaluation note* Diagnosis Lumbosacral spondylosis without myelopathy- Primary Lumbosacral spondylosis without myelopathy- Primary Lumbosacral spondylosis without myelopathy Lumbosacral spondylosis without myelopathy [facility]* Diagnosis Lumbosacral spondylosis without myelopathy- Primary Lumbosacral spondylosis without myelopathy- Primary Lumbosacral spondylosis without myelopathy documented in this encounter [facility] SystemInstructionsNot on filedocumented in this encounter [facility] Reason for Referral Reason Evaluate and Tr eat Diagnosis 1 Degeneration of inte rvertebral disc at L5-S1 level (M51.37) Referral Organization [facility] Referring Provider First Name Jose Alfredo Referring Provider Last Name Chris Referring Provider Specialty Neurologica l Surgery Referred Organization [facility] Referred Provider Jr. Vazquez William Referred Address [address] [facility],[place], [place],[address] Referred Provider Specialty Pain Medicin e Referral Priority Routine General Notes Cherlele Christopher M 022 10:15:22 AM >Received today and waiting for office notes to be locked before sending Specialty Diagnoses / Procedures Referred By Zaire flores Referred To Contact Diagnoses Lumbosacral spondylosis without myelopathy Procedures Case request operating room: RADIOFREQUENCY ABLATION SPINAL: left L45 [address], [place] [address], [address] [place] [address] Referral ID Status Reason Start Date Expiration Date V isits Requested Visits Authorized [id number] Pending Review 06/24/2023 06/23/2024 1 1 Specialty Diagnoses / Procedures Referred By Contac t Referred To Contact Diagnoses Lumbosacral spondylosis without myelopathy Procedures Case request operating room: RADIOFREQUENCY ABLATION SPINAL: right L45 [address], [place] [address], [address] [place], [place] [id number] Referral ID Status Reason Start Date Expiration Date V isits Requested Visits Authorized [id number] Pending Review 06/24/2023 06/23/2024 1 1 Specialty Diagnoses / Procedures Referred By Contac t Referred To Contact Diagnoses Lumbosacral spondylosis without myelopathy Procedures Case request operating room: INJECTION BLOCK NERVE MEDIAL BRANCH: left L45 [address], [place] [address], [address] [place] [address] Referral ID Status Reason Start Date Expiration Date V isits Requested Visits Authorized [id number] Pending Review 08/19/2023 08/18/2024 1 1 Summary [...] and content) DATE CREATED AUTHOR 12/31/2021 [facility] DATE CREATED AUTHOR AUTHOR'S ORGANIZ ATION 10/31/2023 [facility] DATE CREATED AUTHOR AUTHOR'S ORGANIZ ATION 11/06/2023 [facility] DATE CREATED AUTHOR AUTHOR'S ORGANIZ ATION 01/11/2024 [facility] EPIC DATE CREATED AUTHOR AUTHOR'S ORGANIZ ATION 01/14/2024 [facility] Care Teams (unrecognized sec tion and content) Order Takers Supervisor Relationship Specialty Start Date End Date Hitesh Obregon MD [address] [place] [address] PCP - [facility] 08/13/20 Order Takers Supervisor Relationship Specialty Start Date End Date Hitesh Obregon MD [address] [place] [address] PCP - [facility] 08/13/20 Order Takers Supervisor Relationship Specialty Start Date End Date Hitesh Obregon MD [address] [place] [address] PCP - [facility] 08/13/20 FOR RECORDS PERTAINING TO PATIENTS WHO [...] BE BASED ON THE PRIMARY CLINICAL RECORDS. [facility]. provides no warranty or guarantee of the accuracy or completeness of information in this document.
--- NOTE | 2024-01-21 12:32 | XR_ITS ---
[address] [address] Patient Name: LAKIA TALBERT MRN: [id number] date: 1975 Sex: F Assigned Patient Location: LAB Current Patient Location: Accession/Order Number: [id number] Exam Date: 01/21/2024 12:33 Report Date: 01/23/2024 08:27 At the request of: JAYLA OBREGON Procedure: XR shoulder RT min 2V PROCEDURE: XR shoulder RT min 2V COMPARISON: None. HISTORY: chronic right shoulder pain M25.511 FINDINGS: BONES:No fracture, acute abnormality, or significant arthropathy. SOFT TISSUES:Negative. No visible soft tissue swelling. EFFUSION:None visible. OTHER: Negative. XR/XR shoulder RT min 2V IMPRESSION: No acute radiographic abnormality Electronically authenticated by: WAYNE KAPLAN Date: 01/23/2024 08:27
[2024-01-21 13:38] LABS: Free T3 1.68 pg/mL (2.18-3.98)
== END 2024-01-21 12:17 | disposition home or self-care (01) ==
LOC: LAB 12:17
PROVIDERS: PCP Family Medicine; Visit Provider Family Medicine
DX: E03.9 Hypothyroidism, unspecified (principal); M25.511 Pain in right shoulder; G89.29 Other chronic pain
CPT/HCPCS: 36415; 73030; 84439; 84443; 84481

== ENCOUNTER 2024-01-27 11:56 | Outpatient (RCR) | payer MEDICAID, SELFPAY | END 2024-02-29 12:35 | disposition home or self-care (01) | LOC: PT 11:56 | PROVIDERS: PCP Family Medicine; Visit Provider Family Medicine | DX: M25.511 Pain in right shoulder (principal) | CPT/HCPCS: 97010; 97014; 97110; 97140; 97161 ==

== ENCOUNTER 2024-08-07 10:46 | Outpatient (OUT) | payer MEDICAID, SELFPAY ==
--- OUTSIDE RECORDS SUMMARY | 2024-08-03 14:12 | XMS_ITS | CCD ---
Author Organization [facility] Care Team Providers Care Digital Camera Technician Name Role Phone Jose Alfredo Perez Unavailable [...] NADERER, DR HITESH Johnson Primary Care Unavailable WEST, DR WAYNE Alvarado Consulting Unavailable ZIEBER, DR THERESA Diez Consulting Unavailable NADERER, DR HITESH Johnson Consulting Unavailable VAZQUEZ, OTIS E Attending Unavailable VAZQUEZ, OTIS E Referring Unavailable NADERER, HITESH Primary Care Unavailable VAZQUEZ, OTIS E Admitting Unavailable VAZQUEZ, OTIS E Attending Unavailable NADERER, HITESH Referring Unavailable NADERER, HITESH Primary Care Unavailable NISONALI CORRALES Attending Unavailable NADERER, HITESH Referring Unavailable NADERER, HITESH Primary Care Unavailable VAZQUEZ, OTIS E Admitting Unavailable VAZQUEZ, OTIS E Attending Unavailable NADERER, HITESH Referring Unavailable NADERER, HITESH Primary Care Unavailable VAZQUEZ, OTIS E Attending Unavailable VAZQUEZ, OTIS E Referring Unavailable NADERER, HITESH Primary Care Unavailable DROWNANURAG Attending Unavailable NADERER, HITESH Primary Care Unavailable NISONALI CORRALES Attending Unavailable NADERER, HITESH Referring Unavailable HITESH OBREGON Primary Care Unavailable OTIS VAZQUEZ Attending Unavailable OTIS VAZQUEZ Referring Unavailable MINDI, HITESH Primary Care Unavailable OTIS VAZQUEZ Admitting Unavailable OTIS VAZQUEZ Attending Unavailable HITESH OBREGON Referring Unavailable MINDI, HITESH Primary Care Unavailable ANURAG NAGY Attending Unavailable HITESH OBREGON Primary Care Unavailable LUZ MARIA CANTU Referring Unavailable MINDI, HITESH Primary Care Unavailable Ickes PA-C, Tia Renee Attending Unav ailable Ickes PA-C, Tia Renee Attending Unav ailable Giedragene BEE, Selma Daniels Attending Unavailable Mindi BEE, Hitesh Easton Primary Care Unavail able Nienberg PA-C, Sonali Laguerre Referring Un available Ickes PA-C, Tia Rainey Attending Unav ailable Ickes PA-C, Tia Rainey Attending Unav ailable Hitesh Obregon MDony Primary Care Unavail able Ickes PA-C, Tia Renee Attending Unav ailable Ickes PA-C, Tia Brigid Attending Unav ailable Ickes PA-C, Tia Renee Attending Unav ailable NadHitesh clinton MD Primary Care Unavail able Mindi BEE, Hitesh Primary Care Provider Erin Rajput Unavailable [phone] Viral Ha Attending Unavailab Viral Hoff Admitting Unavailab HITESH Schwab Attending Unavailable HITESH OBREGON Attending Unavailable ADORE MENDOZA Attending Unavailable DEVIN BHANDARI Attending Unavailable MINDI, HITESH Attending Unavailable Allergies Allergy Classification Reported Allergen(s) Allergy Type Date of Onset Reaction(s) Facility Amoxicillin / Clavulanate (1 source) Amoxicillin / Clavulanate; Translations: [amoxicillin-cl avulanate] Drug Allergy [facility] Repository Latex (1 source) Latex; Translations: [Latex] Substance Allergy [facility] Repository (1 source) Amoxicillin / Clavulanate Drug Allergy facial swelling [email or web address] Other (2 sources) Latex; Translations: [LATEX] Drug allergy 5 Unknown [facility] Repository (1 source) Amoxicillin / Clavulanate Drug Allergy 3 [facility] Repository (1 source) Latex Drug allergy (disorder) 3 [facility] Repository (1 source) Levamisole Drug Allergy 3 [facility] Repository (1 source) Meclizine Drug Allergy 3 [facility] Repository (7 sources) AMOXICILLIN-POT CLAVULANATE; Translations: [AMOXICILLIN-PO T CLAVULANATE] Propensity to adverse reactions to drug (disorder) 5 Swelling [facility] Repository (6 sources) Latex Allergy to substance 5 [facility] (1 source) Amoxicillin Drug Allergy 3 [facility] Repository (1 source) Clavulanate Drug Allergy 3 [facility] Repository (1 source) Latex Drug allergy (disorder) 3 [facility] Repository Medications Current Medications Medication Drug Class(es) Dates Sig (Normalized) Sig (Original) cariprazine 1.5 mg oral capsule (6 sources) Atypical Antipsychotic Cariprazine HCl (Vraylar) 1.5 MG capsule Take by mouth Active cholecalciferol 0.05 mg oral capsule (7 sources) Vitamin D take 1 capsule by mouth in the morning cholecalciferol (Vitamin D-3) 50 MCG (1999 UT) capsule Take 1 capsule by mouth in the morning. Active Vitamin D3 50 MC G (1999 UT) Oral for 30 Active DULoxetine 60 mg delayed release oral capsule (7 sources) Serotonin and Norepinephrine Reuptake Inhibitor Start: 02-16-2024 End: 02-15-2025 take 1 capsule by mouth once daily DULoxetine (Cymbalta) [address] capsule Indications: Generalized anxiety disorder (CMS/HCC) Take 1 capsule (60 mg) by mouth 1 (one) time each day at the same time 30 capsule 11 02/16/2024 02/15/2025 Active take 1 capsule by mouth once kym ly Cymbalta [address] capsule Take 1 capsule by mouth 1 (one) time each day at the same time. Active estradiol 2 mg oral tablet (7 sources) Estrogen Start: 12-15-2023 End: 12-09-2024 take 1 tablet by mouth once daily estradiol (Estrace) 2 MG tablet Indications: Vaginal dryness Take 1 tablet (2 mg) by mouth 1 (one) time each day at the same time 30 tablet 11 12/15/2023 12/09/2024 Active Estradiol 2 MG O ral for 30 Active gabapentin 100 mg oral capsule (7 sources) Anti-epileptic Agent Start: 01-10-2024 End: 04-10-2024 take 1 capsule by mouth twice daily gabapentin (Neurontin) 100 MG capsule Indications: Generalized anxiety disorder (CMS/HCC) , Fibromyalgia TAKE 1 CAPSULE BY MOUTH TWICE DAILY 60 capsule 2 04/10/2024 Active levothyroxine sodium 0.15 mg oral tablet (7 sources) l-Thyroxine Start: 01-06-2024 take 1 tablet by mouth once daily levothyroxine (Synthroid, Levoxyl) 150 MCG tablet Indications: Primary hypothyroidism (CMS/HCC) TAKE 1 TABLET BY MOUTH DAILY 30 tablet 3 01/06/2024 Active take 1 tablet by mouth once leoncio y Levothyroxine Sodium 137 MCG TAKE 1 TABLET BY MOUTH DAILY Diagnosis Unavailable Oral for 30 Active liothyronine sodium 0.005 mg oral tablet (5 sources) l-Triiodothyronine Start: 06-27-2024 take 1 tablet by mouth once daily liothyronine (Cytomel) 5 MCG tablet Indications: Primary hypothyroidism (CMS/HCC) TAKE 1 TABLET(5 MCG) BY MOUTH DAILY 30 tablet 3 06/27/2024 Active Start: 01-25-2024 take 1 tablet by jesus manuel once daily liothyronine (Cytomel) 5 MCG tablet Indications: Primary hypothyroidism (CMS/HCC) Take 1 tablet (5 mcg) by mouth Daily 30 tablet 3 01/25/2024 Active lithium carbonate 300 mg oral capsule (7 sources) Start: 11-19-2022 take 1 capsule by mouth in the morning lithium 300 MG capsule Take 300 mg by mouth in the morning and 300 mg before bedtime. 11/19/2022 Active [facility] Carbonat e 300 MG Oral for 30 Active LORazepam 1 mg oral tablet (7 sources) Benzodiazepine take 1 tablet by mouth three times daily as needed LORazepam (Ativan) 1 MG tablet Take 1 mg by mouth 3 (three) times a day as needed. Active 24 hr metFORMIN hydrochloride 500 mg extended release oral tablet (6 sources) Biguanide Start: 4 End: 5 take 1 tablet by mouth every twenty-four hours at mealtime metFORMIN XR (Glucophage-XR) 500 MG 24 hr tablet Indications: Insulin resistance Take 1 tablet (500 mg) by mouth in the evening. Take with meals Do not crush, chew, or split. 30 tablet 11 11/15/2023 11/14/2024 Active methocarbamol 750 mg oral tablet (8 sources) Muscle Relaxant Start: 4 End: 4 take 1 tablet by mouth three times daily as needed methocarbamol (Robaxin) 750 MG tablet Indications: Degenerative lumbar spinal stenosis TAKE 1 TABLET BY MOUTH THREE TIMES DAILY NEEDED 90 tablet 3 04/10/2024 Active take 1 tablet by jesus manuel th in the morning, then take 1 tablet by mouth in the evening, then take 1 tablet by mouth at bedtime methocarbamol (Robaxin) 750 MG tablet Ta ke 750 mg by mouth in the morning and 750 mg in the evening and 750 mg before bedtime. Active naproxen 500 mg oral tablet (7 sources) Nonsteroidal Anti-inflammatory Drug Start: 10-14-2023 End: 04-10-2024 take 1 tablet by mouth twice daily as needed naproxen (Naprosyn) 500 MG tablet Indications: Fibromyalgia TAKE 1 TABLET BY MOUTH TWICE DAILY NEEDED 60 tablet 5 04/10/2024 Active omeprazole 20 mg delayed release oral capsule (6 sources) Proton Pump Inhibitor take 1 capsule by mouth once daily omeprazole (PriLOSEC) [address] capsule Take 20 mg by mouth 1 (one) time each day at the same time. Active tiZANidine 4 mg oral tablet (6 sources) Central alpha-2 Adrenergic Agonist Start: 12-29-2023 take 1 tablet by mouth three times daily as needed tiZANidine (Zanaflex) 4 MG tablet Indications: Degenerative lumbar spinal stenosis TAKE 1 TABLET BY MOUTH THREE TIMES DAILY NEEDED 90 tablet 3 12/29/2023 Active traZODone hydrochloride 100 mg oral tablet (7 sources) Serotonin Reuptake Inhibitor take 1 tablet by mouth at bedtime traZODone (Desyrel) 100 MG tablet Take 100 mg by mouth at bedtime. Active Problems Active Problems Problem Classification Problem Date Documented Da te Episodic/Chronic Anxiety disorders (9 sources) Generalized anxiety disorder; Translations: [Generalized anxiety disorder] Onset: 3 04-07-2024 Chronic Diabetes mellitus without complication (8 sources) Prediabetes; Translations: [Prediabetes] Onset: 3 04-26-2023 Episodic Disorders of lipid metabolism (8 sources) Dyslipidemia; Translations: [Hyperlipidemia, unspecified] Onset: 3 04-26-2023 Chronic Esophageal disorders (8 sources) Gastroesophageal reflux disease; Translations: [Gastro-esophageal reflux disease without esophagitis] Onset: 4 10-20-2023 Chronic Mood disorders (8 sources) Bipolar affective disorder, currently depressed, moderate; Translations: [Bipolar disorder, current episode depressed, moderate] Onset: 3 04-26-2023 Chronic Nutritional deficiencies (9 sources) Vitamin D deficiency, unspecified; Translations: [Vitamin D deficiency] Onset: 2 04-26-2023 Chronic Other aftercare (4 sources) Long-term current use of drug therapy; Translations: [Other jail (current) drug therapy] Onset: 5 07-10-2024 Episodic Other gastrointestinal disorders (1 source) Irritable bowel syndrome characterized by constipation; Translations: [Irritable bowel syndrome without diarrhea] Chronic Other non-traumatic joint disorders (8 sources) Chronic pain of right upper limb; Translations: [Pain in right shoulder] Onset: 4 01-10-2024 Episodic Other nutritional; endocrine; and metabolic disorders (6 sources) Insulin resistance; Translations: [Insulin resistance] Onset: 3 04-26-2023 Chronic Spondylosis; intervertebral disc disorders; other back problems (10 sources) Bilateral inflammation of sacroiliac joint; Translations: [Sacroiliitis, not elsewhere classified] Onset: 1 Resolved: 1 Chronic Thyroid disorders (20 sources) Hypothyroidism, unspecified; Translations: [Graves' disease] Onset: 2 Chronic Unclassified (4 sources) Patient on antidepressant monitoring plan Onset: 4 02-16-2024 Unclassified (4 sources) Baseline PHQ-9 Onset: 4 02-16-2024 Unclassified (2 sources) Chronic pain of right upper limb 07-10-2024 Past or Other Problems Problem Classification Problem Date Documented Da te Episodic/Chronic Abdominal hernia (1 source) Hiatal hernia; Translations: [Diaphragmatic hernia without obstruction or gangrene] Episodic Abdominal pain (2 sources) Abdominal pain; Translations: [Unspecified abdominal pain] Episodic Hemorrhoids (1 source) Hemorrhoids; Translations: [Unspecified hemorrhoids] Episodic Immunizations and screening for infectious disease (1 source) Encounter for screening for human papillomavirus (HPV); Translations: [ENC SCREENING HUMAN PAPILLOMAVIRUS] Onset: 06-05-2021 Episodic Other aftercare (6 sources) Other jail (current) drug therapy; Translations: [OTH DETENTION CURRENT DRUG THERAPY] Onset: 09-29-2021 Episodic Other connective tissue disease (7 sources) Fibromyalgia; Translations: [Fibromyalgia] Onset: 04-26-2023 04-07-2024 Episodic Other gastrointestinal disorders (1 source) Constipation; Translations: [Constipation, unspecified] Episodic Other gastrointestinal disorders (1 source) Swollen abdomen; Translations: [Abdominal distension (gaseous)] Episodic Other gastrointestinal disorders (1 source) Heartburn; Translations: [Heartburn] Episodic Other non-traumatic joint disorders (7 sources) Pain in left shoulder; Translations: [Pain in joint, shoulder region] Onset: 05-10-2021 Resolved: 01-10-2024 01-10-2024 Episodic Other nutritional; endocrine; and metabolic disorders (1 source) Weight gain; Translations: [Abnormal weight gain] Episodic Other screening for suspected conditions (not mental disorders or infectious disease) (10 sources) Encounter for screening for malignant neoplasm of cervix; Translations: [Abnormal radionuclide scan] Onset: 06-02-2021 Episodic Skin and subcutaneous tissue infections (6 sources) Abscess of groin; Translations: [Cutaneous abscess of groin] Onset: 04-26-2023 Resolved: 10-20-2023 10-20-2023 Episodic Spondylosis; intervertebral disc disorders; other back problems (8 sources) Backache; Translations: [Degenerative lumbar spinal stenosis] Onset: 04-26-2023 04-07-2024 Episodic Viral infection (6 sources) Human papilloma virus infection; Translations: [Papillomavirus as the cause of diseases classified elsewhere] Onset: 04-26-2023 04-26-2023 Episodic Results Test Name Value Interpretation Reference Range Facility ALL T3 [facility] 01-21-2024 Free T3 [Mass/Vol] 1.68 pg/mL Low 2.18 - 3. 98 pg/mL [facility] ALL THYROID STIM HORMONEon 0 01-21-2024 TSH Qn 6.740 m[IU]/L High [facility] ALL THYROXINE (T4) FREEon Free T4 [Mass/Vol] 1.00 ng/dL 0.76 - 1. 46 ng/dL [facility] No Panel Informationon 01-20 Interpretation and review of laboratory results Abnormal [facility] MR LUMBAR SPINE WO CONTon MR LUMBAR [...] [place] MD on 10/29/2023 1:26 PM Normal [facility] Pain Management Office/Clini c Noteon 10-29-2023 [...] noneChiropractic: noneInjections: PRN with Dr. Vazquez in [facility]. Surgery: noneTENS: Home unit Depression: Yes [...] Injections: helps Comments Injections: Dr. Vazquez in [facility] Date Surgery: none Recent testing: Yes [...] her neurosurgeon, (more content not included)... Normal [facility] Neurosurgery Office/Clinic N oteon 10-19-2023 Neurosurgery Office/Clinic Note Chief Complaint Back [...] sagittal balance Patient denies physical therapy or lawn care specialist. Her pain has been refractory to oral [...] bilaterally. Bilateral (more content not included)... Normal [facility] Provider Letteron 10-19-2023 Provider Letter Hitesh Obregon MD [address] [place] [address] Re: Mariana Victor Date of Visit: 10/19/2023 Dear Hitesh Obregon, Thank you for allowing me to contribute to the care of your patient, Mariana Victor. Attached is my office note and you will find my assessment and recommendations from our encounter today. Please do not hesitate to contact me with any questions or concerns. Sincerely, Tia Webb PA-C [facility] [address] [place] [address] The following document(s) were included in the letter: October 19, 2023 14:26:47 EDT - (10/19/2023) Neurosurgery Office Visit Note Normal [facility] NM Bone SPECT CT with Whole Bodyon 10-04-[address] with Whole Body NUCLEAR [...] Electronically Signed in Other Vendor System) Normal [facility] Neurosurgery Office/Clinic N oteon 09-13-2023 Neurosurgery Office/Clinic Note Chief Complaint Back [...] sagittal balance Patient denies physical therapy or lawn care specialist. Her pain has been refractory to oral [...] 5 o (more content not included)... Normal [facility] Glucose Glucometer (dC) [M ass/Vol]on 09-03-2023 Glucose [Mass/Vol] 99 mg/dL Normal 65-99 [facility] CALCIUMon 07-19-2023 Calcium [Mass/Vol] 9.9 mg/dL Normal 8.5-10.5 [facility] Comment on above: Performed By: #### 1 7861-6, ELEC, 3016-3, 3024-7, 12239-1 #### [facility] ([id number]) [address], [address] [place] [address] ELECTROLYTESon 07-19-2023 Anion gap [Moles/Vol] 8 mmol/L Normal 5-15 [facility] Comment on above: Performed By: #### 1 7861-6, ELEC, 3016-3, 3024-7, 17859-3 #### [facility] ([id number]) [address], [address] [place] [address] Chloride [Moles/Vol] 100 mmol/L Normal 98-109 [facility] Comment on above: Performed By: #### 1 7861-6, ELEC, 3016-3, 3024-7, 72172-0 #### [facility] ([id number]) [address], [address] [place] [address] CO2 [Moles/Vol] 27 mmol/L Normal 22-32 [facility] Comment on above: Performed By: #### 1 7861-6, ELEC, 3016-3, 3024-7, 18955-6 #### [facility] ([id number]) [address], [address] [place] [address] Potassium [Moles/Vol] 4.0 mmol/L Normal 3.5-5.0 [facility] Comment on above: Performed By: #### 1 7861-6, ELEC, 3016-3, 3024-7, 67062-7 #### [facility] ([id number]) [address], [address] [place] [address] Sodium [Moles/Vol] 135 mmol/L Normal 134-146 [facility] Comment on above: Performed By: #### 1 7861-6, ELEC, 3016-3, 3024-7, 62541-5 #### [facility] ([id number]) [address], [address] [place] [address] FREE T4on 07-19-2023 Free T4 [Mass/Vol] 1.00 ng/dL Normal 0.61-1.60 [facility] Comment on above: Performed By: #### 1 7861-6, ELEC, 3016-3, 3024-7, 78665-5 #### [facility] ([id number]) [address], [address] [place] [address] LITHIUMon 07-19-2023 [facility] [Moles/Vol] 0.9 mmol/L Normal 0.5-1.5 [facility] Comment on above: Performed By: #### 1 7861-6, ELEC, 3016-3, 3024-7, 11431-9 #### [facility] ([id number]) [address], [address] [place] [address] TSH Qnon 07-19-2023 TSH 9.27 uIU/mL High 0.49-4.67 [facility] Comment on above: Performed By: #### 1 7861-6, ELEC, 3016-3, 3024-7, 87494-1 #### [facility] ([id number]) [address], [address] [place] [address] Glucose Glucometer (BldC) [M ass/Vol]on 07-09-2023 Glucose [Mass/Vol] 95 mg/dL Normal 65-99 [facility] Neurosurgery Office/Clinic N oteon 05-31-2023 Neurosurgery Office/Clinic [...] activity level/function. Patient denies physical therapy or lawn care specialist. Her pain has been refractory to oral [...] back pa (more content not included)... Normal [facility] XR Scoliosis Study 2 or 3 Vi [...] Electronically Signed in Other Vendor System) Normal [facility] CT Spine Lumbar w/o Contrast on 05-14-2023 [...] Electronically Signed in Other Vendor System) Normal [facility] XR Spine Lumbosacral Bending 2-3 [facility] 05-14-2023 [...] Electronically Signed in Other Vendor System) Normal [facility] Neurosurgery Office/Clinic N oteon 03-15-2023 Neurosurgery Office/Clinic Note Chief Complaint back consult History of Present Illness Patient is a pleasant 47-year-old female with a history of fibromyalgia, insulin resistance, Vitamin D defiiciency, and Graves' disease, who presents to the outpatient neurosurgical clinic today as a new patient, at the request of her treating pain management provider, Gt Lopez PA-C ([facility]), for consultation on behalf of complaints of [...] activity level/function. Patient denies physical therapy or lawn care specialist. Her pain has been refractory to oral [...] has no children. She lives independently in [place]. Patient denies nicotine or alcohol. She reports daily recreational marijuana use, but otherwise denies recreational drugs. Patient is currently unemployed. 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 Patient states no [place] of Workmen's Compensation or third-alliance party insurance claims based on today's office [...] digital compressi (more content not included)... Normal [facility] Provider Letteron 03-15-2023 Provider Letter Hitesh Obregon MD [address] [place] [address] Re: Mariana Victor Date of Visit: 03/15/2023 Dear Hitesh Obregon, Thank you for allowing me to contribute to the care of your patient, Mariana Victor. Attached is my office note and you will find my assessment and recommendations from our encounter today. Please do not hesitate to contact me with any questions or concerns. Sincerely, Tia Webb PA-C [facility] [place] [address] The following document(s) were included in the letter: March 15, 2023 12:49:11 EDT - (03/15/2023) Neurosurgery Office Visit Note Normal [facility] LITHIUMon 12-31-2021 [facility] (Eskalith(R)), Serum 0.5 mmol/L Normal 0.5-1.2 [facility] Comment on above: Result Comment: Plas ma concentration of 0.5 - 0.8 mmol/L are advised for long-term use; concentrations of up to 1.2 mmol/L may be necessary during acute treatment. Detection Limit = 0.1 <0.1 indicates None Detected Performed By: #### L ITHIUM ####[facility] [address] [place], [place] [address]AxMartín George FREE T3on 12-29-2021 FREE T3 2.57 pg/mlL Normal 2.18-3.98 [facility] Comment on above: Performed By: #### T SH, FT3 #### [facility] [address] [place], [place] [address] Dr. Vijay George FREE T4on 12-29-2021 Free T4 [Mass/Vol] 1.08 ng/dL Normal 0.76-1.46 [facility] Comment on above: Performed By: #### F T4 ####[facility] [address] [place], [place] [address]WsDr. Vijay George TSHon 12-29-2021 TSH 1.091 uIU/mL Normal 0.358-3.740 [facility] Comment on above: Performed By: #### T SH, FT3 ####[facility] [address] [place] [address]Dr. Vijay George LITHIUMon 10-01-2021 [facility] (Eskalith(R)), Serum 0.4 mmol/L Critically low 0.5-1.2 [facility] Comment on above: Result Comment: Plas ma concentration of 0.5 - 0.8 mmol/L are advised for long-term use; concentrations of up to 1.2 mmol/L may be necessary during acute treatment. Detection Limit = 0.1 <0.1 indicates None Detected Performed By: #### L ITHIUM ####[facility] [address] [place], [place] [address]Dr. Vijay George FREE T3on 09-29-2021 FREE T3 1.92 pg/mlL Critically low 2.18-3.98 [facility] Comment on above: Performed By: #### T SH, FT3 ####[facility] [address] [place], [place] [address]Dr. Vijay George FREE T4on 09-29-2021 Free T4 [Mass/Vol] 1.07 ng/dL Normal 0.76-1.46 [facility] Comment on above: Performed By: #### F T4 ####[facility] [address] [place], [place] [address]Dr. Vijay George TSHon 09-29-2021 TSH 3.695 uIU/mL Normal 0.358-3.740 [facility] Comment on above: Performed By: #### T SH, FT3 ####[facility] [address] [place], [place] [address]Dr. Vijay George TSH RANGE SEE BELOW Normal [facility] Comment on above: Result Comment: <0.3 4 UIU/ml HYPERTHYROID 0.34-5.60 UIU/ml EUTHYROID >5.60 UIU/ml HYPOTHYROID Performed By: #### T SH, FT3 ####[facility] [address] [place], [place] [address]Dr. Vijay George LITHIUMon 07-02-2021 [facility] (Eskalith(R)), Serum 0.8 mmol/L Normal 0.5-1.2 [facility] Comment on above: Result Comment: Plas ma concentration of 0.5 - 0.8 mmol/L are advised for long-term use; concentrations of up to 1.2 mmol/L may be necessary during acute treatment. Detection Limit = 0.1 <0.1 indicates None Detected Performed By: #### L ITHIUM #### [facility] [address] [place], [place] [address] Dr. Vijay George CBC AUTO DIFFon 06-30-2021 BASO # 0.1 103/ul Normal 0.0-0.1 [facility] Comment on above: Performed By: #### C BC ####[facility] [address] [place] [id number]. Vijay George Basophils/100 WBC (Bld) 1.0 % Normal 0.2-2.0 [facility] Comment on above: Performed By: #### C BC ####[facility] R[address]ngedrm[address] [place] [id number] George EO # 0.4 103/ul Normal 0.0-0.7 [facility] Comment on above: Performed By: #### C BC ####[facility] [address]ae[address]thqmo[address] [place] [id number]. Vijay George Eosinophils/100 WBC (Bld) 5.5 % Normal 0.9-7.0 [facility] Comment on above: Performed By: #### C BC ####[facility] Nclbfqszuw[address] [place] [id number] George Erythrocyte distribution width (RBC) [Ratio] 12.8 % Normal 11.0-15.0 [facility] Comment on above: Performed By: #### C BC ####[facility] [address]fzqciblei[address] [place] [id number] George Hematocrit (Bld) [Volume fraction] 42.3 % Normal 36.0-48.0 [facility] Comment on above: Performed By: #### C BC ####[facility] [address] [place] [id number]. Vijay George Hemoglobin (Bld) [Mass/Vol] 13.1 g/dL Normal 12.0-16.0 [facility] Comment on above: Performed By: #### C BC ####[facility] [address] [place] [id number]. Vijay George IG # 0.02 10e3/ul Normal 0.00-0.03 [facility] Comment on above: Performed By: #### C BC ####[facility] [address]isf[address] [place] [id number]. Vijay George IG % 0.2 % Normal 0.0-0.5 [facility] Comment on above: Performed By: #### C BC ####[facility] [address] [place] [address]Dr. Vijay George LYMPH # 1.6 103/ul Normal 1.2-3.8 [facility] Comment on above: Performed By: #### C BC ####[facility] [address] [place] [address]Dr. Vijay George Lymphocytes/100 WBC (Bld) 19.4 % Critically low 20.5-60.0 [facility] Comment on above: Performed By: #### C BC ####[facility] [address]xkxvtpx[address] [place] [id number]. Vijay George MANUAL DIFF REQ NO Normal [facility] [place] [facility] Comment on above: Performed By: #### C BC ####[facility] [address] [place] [address]Dr. Vijay George MCH (RBC) [Entitic mass] 29.8 pg Normal 26.7-34.0 [facility] Comment on above: Performed By: #### C BC ####[facility] [address]ukpsxxy[address] [place] [id number]. Vijay George MCHC (RBC) [Mass/Vol] 31.0 g/dL Normal 29.9-35.2 [facility] Comment on above: Performed By: #### C BC ####[facility] [address]unhorl[address] [place] [id number]. Vijay George MCV (RBC) [Entitic vol] 96.4 fL Normal 81.0-99.0 [facility] Comment on above: Performed By: #### C BC ####[facility] Yx[address]yxqrja[address] [place] [id number]. Vijay George MONO # 0.5 103/ul Normal 0.3-0.8 [facility] Comment on above: Performed By: #### C BC ####[facility] [address]nnvcpdfc[address] [place] [phone]. Vijay George Monocytes/100 WBC (Bld) 6.1 % Normal 1.7-12.0 [facility] Comment on above: Performed By: #### C BC ####[facility] [address] [place], [place] [id number]. Vijay George NEUT # 5.4 103/ul Normal 1.4-6.5 [facility] Comment on above: Performed By: #### C BC ####[facility] [address] [place], [place] [id number]. Vijay George Neutrophils/100 WBC (Bld) 67.8 % Normal 43.0-75.0 [facility] Comment on above: Performed By: #### C BC ####[facility] [address] [place] [id number]. Vijay George Platelet mean volume (Bld) [Entitic vol] 10.4 fL Normal 9.5-13.5 [facility] Comment on above: Performed By: #### C BC ####[facility] [address]xssoaka[address] [place] [id number]. Vijay George PLT 313 103/ul Normal 150-450 [facility] Comment on above: Performed By: #### C BC ####[facility] [address]kyfxl[address] [place] [phone]. Vijay Ariel RBC 4.39 106/ul Normal 4.20-5.40 [facility] Comment on above: Performed By: #### C BC ####[facility] [address]pter[address] [place] [id number] George WBC 8.0 103/ul Normal 4.0-11.0 [facility] Comment on above: Performed By: #### C BC ####[facility] [address] [place] [address]Dr. Vijay George FREE T3on 06-30-2021 FREE T3 2.14 pg/mlL Critically low 2.77-5.27 [facility] [place] [facility] Comment on above: Performed By: #### B MP, TSH, FT3, LIVER, LIPID #### [facility] [address] [place] [address] [address] Vijay George FREE T4on 06-30-2021 Free T4 [Mass/Vol] 1.24 ng/dL Normal 0.78-2.19 [facility] Comment on above: Performed By: #### V ITAD, FT4 ####[facility] [address] [place] [address]Dr. Vijay George GLYCOHEMOGLOBIN A1Con 2021 ADA RECOMMENDATION ADA THERAPEUTIC TARG ET 6.0 - 7.0 ACTION SUGGESTED > 7.0 Normal [facility] Comment on above: Performed By: #### A 1C #### [facility] [address] [place] [address] [address] Vijay George Glucose [Mass/Vol] 108 mg/dL Normal [facility] Comment on above: Performed By: #### A 1C #### [facility] [address] [place] [address] [address] Vijay George HbA1c (Bld) [Mass fraction] 5.4 % Normal <=6.0 [facility] Comment on above: Performed By: #### A 1C #### [facility] [address] [place] [address] [address] Vijay George LIPID PROFILEon 06-30-2021 CHOL-HDL RATIO NORM SEE BELOW Normal [facility] Comment on above: Result Comment: 3.3 - 4.4 LOW RISK 4.4 - 7.1 AVERAGE RISK 7.1 - 11.0 MODERATE RISK >11.0 HIGH RISK Performed By: #### B MP, TSH, FT3, LIVER, LIPID #### [facility] [address] [place] [address] [address] Vijay George Cholesterol [Mass/Vol] 223 mg/dL Critically high <=200 [facility] Comment on above: Performed By: #### B MP, TSH, FT3, LIVER, LIPID #### [facility] [address] [place] [address] [address] Vijay George Cholesterol in HDL [Mass/Vol] 56 mg/dL Normal [facility] Comment on above: Performed By: #### B MP, TSH, FT3, LIVER, LIPID #### [facility] [address] [place] [address] [address] Vijay George Cholesterol in LDL [Mass/Vol] 115.8 mg/dL Normal [facility] Comment on above: Performed By: #### B MP, TSH, FT3, LIVER, LIPID #### [facility] [address] [place] [address] [address] Vijay George Cholesterol.total/Ch olesterol in HDL [Mass ratio] 4.0 {ratio} Normal [facility] Comment on above: Performed By: #### B MP, TSH, FT3, LIVER, LIPID #### [facility] [address] [place] [address] [address] Vijay George HDL NORMAL > or = 60 mg/dl - LO W CARDIOVASCULAR RISK <40 mg/dl - HIGH CARDIOVASCULAR RISK Normal [facility] Comment on above: Performed By: #### B MP, TSH, FT3, LIVER, LIPID #### [facility] [address] [place] [address] [address] Vijay George LDL CALC NORMAL SEE BELOW Normal [facility] Comment on above: Result Comment: <100 mg/dl OPTIMAL 100 - 129 mg/dl NEAR OR ABOVE OPTIMAL 130 - 159 mg/dl BORDERLINE HIGH 160 - 189 mg/dl HIGH >190 mg/dl VERY HIGH Performed By: #### B MP, TSH, FT3, LIVER, LIPID #### [facility] [address] [place] [address] [address] Vijay George Triglyceride [Mass/Vol] 256 mg/dL Critically high <=150 [facility] Comment on above: Performed By: #### B MP, TSH, FT3, LIVER, LIPID #### [facility] [address] [place] [address] Dr. Vijay George VLDL CALC 51.2 mg/dL Normal [facility] Comment on above: Performed By: #### B MP, TSH, FT3, LIVER, LIPID #### [facility] [address] [place] [address] Dr. Vijay George LIVER PROFILEon 06-30-2021 Albumin [Mass/Vol] 4.0 g/dL Normal 3.5-5.0 [facility] Comment on above: Performed By: #### B MP, TSH, FT3, LIVER, LIPID #### [facility] [address] [place] [address] Dr. Vijay George Albumin/Globulin [Mass ratio] 1.0 {ratio} Normal [facility] Comment on above: Performed By: #### B MP, TSH, FT3, LIVER, LIPID #### [facility] [address] [place] [address] Dr. Vijay George ALP [Catalytic activity/Vol] 97 U/L Normal 38-126 [facility] Comment on above: Performed By: #### B MP, TSH, FT3, LIVER, LIPID #### [facility] [address] [place] [address] Dr. Vijay George ALT [Catalytic activity/Vol] 25 U/L Normal 9-52 [facility] Comment on above: Performed By: #### B MP, TSH, FT3, LIVER, LIPID #### [facility] [address] [place] [address] Dr. Vijay George AST [Catalytic activity/Vol] 21 U/L Normal 14-36 [facility] Comment on above: Performed By: #### B MP, TSH, FT3, LIVER, LIPID #### [facility] [address] [place] [address] Dr. Vijay George BILI, CONJUGATED 0.0 mg/dL Normal 0.0-0.3 [facility] Comment on above: Performed By: #### B MP, TSH, FT3, LIVER, LIPID #### [facility] [address] [place] [address] Dr. Vijay George Bilirubin [Mass/Vol] 0.2 mg/dL Normal 0.2-1.3 [facility] Comment on above: Performed By: #### B MP, TSH, FT3, LIVER, LIPID #### [facility] [address] [place] [address] Dr. Vijay George Globulin (S) [Mass/Vol] 4.2 g/dL Normal [facility] Comment on above: Performed By: #### B MP, TSH, FT3, LIVER, LIPID #### [facility] [address] [place] [address] Dr. Vijay George Protein [Mass/Vol] 8.2 g/dL Normal 6.1-8.2 [facility] Comment on above: Performed By: #### B MP, TSH, FT3, LIVER, LIPID #### [facility] [address] [place] [address] Dr. Vijay George PROF CHEM 8 (BAS METB)on Anion gap [Moles/Vol] 10.1 mmol/L Normal [facility] Comment on above: Performed By: #### B MP, TSH, FT3, LIVER, LIPID #### [facility] [address] [place] [address] Dr. Vijay George Calcium [Mass/Vol] 9.7 mg/dL Normal 8.4-10.2 [facility] Comment on above: Performed By: #### B MP, TSH, FT3, LIVER, LIPID #### [facility] [address] [place] [address] Dr. Vijay George Chloride [Moles/Vol] 101 mmol/L Normal 98-107 [facility] Comment on above: Performed By: #### B MP, TSH, FT3, LIVER, LIPID #### [facility] [address] [place] [address] Dr. Vijay George CO2 [Moles/Vol] 32.1 mmol/L Critically high 22.0-30.0 [facility] Comment on above: Performed By: #### B MP, TSH, FT3, LIVER, LIPID #### [facility] [address] [place] [address] [address] Vijay George Creatinine [Mass/Vol] 0.82 mg/dL Normal 0.52-1.04 [facility] Comment on above: Performed By: #### B MP, TSH, FT3, LIVER, LIPID #### [facility] [address] [place] [address] [address] Vijay George EGFR-AF JAPANESE >60 Normal >=60 [facility] Comment on above: Performed By: #### B MP, TSH, FT3, LIVER, LIPID #### [facility] [address] [place] [address] [address] Vijay George EGFR-NON AF JAPANESE >60 Normal >=60 [facility] Comment on above: Performed By: #### B MP, TSH, FT3, LIVER, LIPID #### [facility] [address] [place] [address] Dr. Vijay George Glucose [Mass/Vol] 107 mg/dL Critically high 74-[address] [facility] Comment on above: Performed By: #### B MP, TSH, FT3, LIVER, LIPID #### [facility] [address] [place] [address] Dr. Vijay George Potassium [Moles/Vol] 4.2 mmol/L Normal 3.4-5.0 [facility] Comment on above: Performed By: #### B MP, TSH, FT3, LIVER, LIPID #### [facility] [address] [place] [address] [address] Vijay George Sodium [Moles/Vol] 139 mmol/L Normal 137-145 [facility] Comment on above: Performed By: #### B MP, TSH, FT3, LIVER, LIPID #### [facility] [address] [place] [address] Dr. Vijay George Urea nitrogen [Mass/Vol] 15.0 mg/dL Normal 7.0-17.0 [facility] Comment on above: Performed By: #### B MP, TSH, FT3, LIVER, LIPID #### [facility] [address] [place] [address] [address] Vijay George Urea nitrogen/Creatinine [Mass ratio] 18.3 mg/mg Normal [facility] Comment on above: Performed By: #### B MP, TSH, FT3, LIVER, LIPID #### [facility] [address] [place] [address] [address] Vijay George TSHon 06-30-2021 TSH 7.199 uIU/mL Critically high 0.470-4.680 [facility] Comment on above: Performed By: #### B MP, TSH, FT3, LIVER, LIPID #### [facility] [address] [place] [address] [address] Vijay George TSH RANGE SEE BELOW Normal [facility] Comment on above: Result Comment: <0.3 4 UIU/ml HYPERTHYROID 0.34-5.60 UIU/ml EUTHYROID >5.60 UIU/ml HYPOTHYROID Performed By: #### B MP, TSH, FT3, LIVER, LIPID #### [facility] [address] [place] [address] [address] Vijay George VITAMIN D 25 OHon 06-30-2021 VIT D 25-OH 33.8 ng/mL [facility] Comment on above: Performed By: #### V ITAD, FT4 ####[facility] [address] [place], [place] [address]Dr. Vijay George VIT D RANGES SEE BELOW Normal [facility] Comment on above: Result Comment: <20 ng/mL Vit D deficient 20 - <30 ng/mL Vit D insufficient 30 - 100 ng/mL Vit D sufficient >100 ng/mL Potential Toxicity Performed By: #### V ITAD, FT4 ####[facility] [address] [place] [id number]. Vijay George PAP ACOG PANEL 2: 30 to 65on 06-06-2021 . . Normal [facility] Comment on above: Result Comment: Perf ormed at: WB Performed By: #### [id number] #### [facility] [address] [place] [address] [address] Vijay George Age Gdln ACOG Testing 30-65 Normal [facility] Comment on above: Performed By: #### [id number] #### [facility] [address] [place] [address] [address] Vijay George DIAGNOSIS: Comment Normal [facility] Comment on above: Result Comment: NEGA TIVE FOR INTRAEPITHELIAL LESION OR MALIGNANCY. THIS SPECIMEN WAS RESCREENED PART OF OUR SPECIFICATION CONSULTANT PROGRAM. Performed at: WB Performed By: #### [id number] #### [facility] [address] [place] [address] [address] Vijay George HPV Aptima Negative Normal Negative [facility] Comment on above: Result Comment: This nucleic acid amplification test detects fourteen high-risk HPV types (16,18,31,33,35,39,45,51,52,56,58,59,66,68) without differentiation. Performed at: =G Performed By: #### [id number] #### [facility] [address] [place] [address] Dr. Vijay George Methodology: Comment Normal [facility] Comment on above: Result Comment: This liquid based ThinPrep(R) pap test was screened with the use of an image guided system. Performed at: WB Performed By: #### [id number] #### [facility] [address] [place] [address] Dr. Vijay George Note: Comment Normal [facility] Comment on above: Result Comment: The Pap smear is a screening test designed to aid in the detection of premalignant and malignant conditions of the uterine cervix. It is not a diagnostic procedure and should not be used as the sole means of detecting cervical cancer. Both false-positive and false-negative reports do occur. . Performed at: WB Performed By: #### [id number] #### [facility] [address] [place] [address] [address] Vijay George Performed by: Comment Normal [facility] Comment on above: Result Comment: Kiah Salmeron Tax Map Technician (ASCP) Performed at: WB Performed By: #### [id number] #### [facility] [address] [place] [address] [address] Vijay George QC reviewed by: Comment Normal [facility] Comment on above: Result Comment: Urban Wetzel, Supervisory Tax Map Technician (ASCP) Performed at: WB Performed By: #### [id number] #### [facility] [address] [place] [address] Dr. Vijay George Specimen adequacy: Comment Normal [facility] Comment on above: Result Comment: Sati sfactory for evaluation. No endocervical component is identified. Performed at: WB Performed By: #### [id number] #### [facility] [address] [place] [address] [address] Vijay George MRI LSPINE WO CONon [...] WAYNE KAPLAN Date: 2021-05-06 14:14 Normal [facility] MRI SHOULDER LT WO CONon MRI [...] by: THERESA HARRIS Date: 2021-05-06 14:52 Normal [facility] Vital Signs Date Time Vital Sign Value Performing Clinician Facility 07-10-2024 13:17050 Body height 165.1 cm Hitesh Obregon MD Work Phone: [facility] 07-10-2024 13:050 Body mass index (BMI) [Ratio] 33.61 kg/m2 Hitesh Obregon MD Work Phone: [facility] 07-10-2024 13:17050 Body temperature 97.3 [degF] Hitesh Obregon MD Work Phone: [facility] 07-10-2024 13:17-0500 Body weight 91.63 kg Hitesh Obregon MD Work Phone: [facility] 07-10-2024 13:17-0500 Diastolic blood pressure 66 mm[Hg] Hitesh Obregon MD Work Phone: [facility] 07-10-2024 13:17-0500 Heart rate 88 /min Hitesh Obregon MD Work Phone: [facility] 07-10-2024 13:17-0500 Respiratory rate 20 /min Hitesh Obregon MD Work Phone: [facility] 07-10-2024 13:17-0500 SaO2% (BldA) [Mass fraction] 95 % Hitesh Obregon MD Work Phone: [facility] 07-10-2024 13:17-0500 Systolic blood pressure 110 mm[Hg] Hitesh Obregon MD Work Phone: [facility] 05-22-2021 15:00-0500 Body height 167.64 cm Jose Alfredo Perez Other [email or web address] Other 05-22-2021 15:00-0500 Body mass index (BMI) [Ratio] 30.66 kg/m2 Jose Alfredo Perez Other [employer] Other 05-22-2021 15:00-0500 Body weight 86.18 kg Jose Alfredo Perez Other [employer] Other Encounters Encounter Date Encounter Type Care Provider Facility Start: 07-10-2024 End: 07-10-2024 Bamboo flowsheet Hitesh Obregon MD Work Phone: [facility] Start: 07-10-2024 End: 07-10-2024 Bamboo flowsheet Hitesh Obregon MD Work Phone: [facility] Start: 07-10-2024 End: 07-10-2024 Office outpatient visit 25 minutes Hitesh Obregon MD Work Phone: [facility] Comment on above: Chronic right should er pain (Primary Dx); Primary hypothyroidism (CMS/HCC); Gastroesophageal reflux disease without esophagitis; Bipolar affective disorder, currently depressed, moderate (CMS/HCC); Generalized anxiety disorder (CMS/HCC); Prediabetes; Encounter for long-term (current) use of medications; Vitamin D deficiency; Dyslipidemia (CMS/HCC) Start: 07-10-2024 End: 07-10-2024 ambulatory HITESH OBREGON Not Available Start: 06-01-2024 ambulatory Viral Rosario acility:[facility] Start: 04-07-2024 End: 04-10-2024 Refill Hitesh Obregon MD Work Phone: [facility] Comment on above: Generalized anxiety disorder (CMS/HCC); Fibromyalgia; Degenerative lumbar spinal stenosis Start: 01-25-2024 End: 01-25-2024 Orders Only Hitesh Obregon MD Work Phone: [facility] Comment on above: Primary hypothyroidi sm (CMS/HCC) (Primary Dx) Start: 01-21-2024 End: 01-21-2024 Clinisync Result Encounter Hitesh Obregon MD Work Phone: [facility] External Department Unsolicited Start: 01-21-2024 End: 01-21-2024 Clinisync Result Encounter Hitesh Obregon MD Work Phone: [facility] External Department Unsolicited Start: 01-10-2024 End: 01-10-2024 ambulatory HITESH OBREGON Not Available Start: 12-07-2023 End: 12-07-2023 ambulatory DEVIN BHANDARI Not Available Start: 11-01-2023 End: 11-01-2023 ambulatory ADORE MENDOZA Not Available Start: 10-29-2023 End: 10-29-2023 ambulatory Selma Olvera MD Facility:[facility] Start: 10-20-2023 End: 10-20-2023 ambulatory HITESH OBREGON Not Available Start: 10-19-2023 End: 10-19-2023 ambulatory Tia Rainey Ictiff PA-C Facility:[facility] Start: 10-01-2023 End: 10-01-2023 ambulatory Tia Webb PA-C Facility:[facility] Start: 09-13-2023 End: 09-13-2023 ambulatory Tia Rainey Ictiff PA-C Facility:[facility] Start: 09-04-2023 End: 09-04-2023 [facility] Start: 09-03-2023 End: 09-03-2023 ambulatory [facility] Start: 08-19-2023 End: 08-19-2023 ambulatory [facility] Start: 07-23-2023 End: 07-23-2023 ambulatory [facility] Start: 07-23-2023 End: 07-23-2023 ambulatory [facility] Start: 07-19-2023 End: 07-19-2023 ambulatory LUZ MARIA Castellano [facility] Start: 07-10-2023 End: 07-10-2023 ambulatory ANURAG S [facility] Start: 07-09-2023 End: 07-09-2023 ambulatory [facility] Start: 06-24-2023 End: 06-24-2023 ambulatory [facility] Leti [facility] Start: 05-31-2023 End: 05-31-2023 ambulatory Tia Webb PA-C Facility:[facility] Start: 05-13-2023 End: 05-13-2023 ambulatory Tia Webb PA-C Facility:[facility] Start: 03-15-2023 End: 03-15-2023 ambulatory Sonali Lopez PA-C Facility:[facility] Start: 12-29-2021 End: 12-30-[address] HITESH OBREGON Facility:[facility] Start: 09-29-2021 End: 09-30-[address] HITESH OBREGON Facility:[facility] Start: 07-04-2021 Encounter for genera l adult medical examination without abnormal findings DR HITESH OBREGON [facility] Start: 06-30-2021 End: 07-01-[address] HITESH OBREGON Facility:[facility] Start: 06-30-2021 End: 07-01-2021 Encounter for general adult medical examination without abnormal findings DR HITESH OBREGON Facility:[facility] Start: 06-02-2021 End: 06-02-[address] DEVIN BHANDARI Facility:[facility] Start: 05-22-2021 End: 05-22-2021 ambulatory Jose Alfredo Perez Other [facility] [employer] Other Start: 05-22-2021 Office outpatient ne w 30 minutes Jose Alfredo Perez [facility] Start: 05-06-2021 End: 05-07-[address] HITESH OBREGON Facility:[facility] Procedures Date Procedure Procedure Detail Performing Clinician Start: 01-21-2024 ALL T3 FREE Hitesh malloy MD Work Phone: Start: 01-21-2024 ALL THYROID STIM HORMONE Hitesh Obregon MD Work Phone: Start: 01-21-2024 ALL THYROXINE (T4) FREE Hitesh Obregon MD Work Phone: Start: 12-21-2023 Colonoscopy Hitesh malloy MD Work Phone: Start: 10-29-2023 Mammography Hitesh malloy MD Work Phone: Plan of Treatment Date Care Activity Detail Author Start: 12-20-2033 Screening for malign ant neoplasm of colon [facility] Start: 01-08-2025 End: 01-08-2025 Patient encounter procedure 01/08/2025 1:15 PM EDT Office Visit [facility] [address] [place] [phone] Hitesh Obregon MD [address] [place] [phone] [facility] Start: 12-11-2024 End: 12-11-2024 Patient encounter procedure 12/11/2024 11:00 AM EDT Office Visit [facility] [address] [phone] Devin Bhandari, DO [address] [place] [address] [facility] Start: 10-28-2024 Screening for malign ant neoplasm of breast Mammogram [facility] Start: 07-10-2024 End: 07-10-2025 25-hydroxyvitamin D3 [Mass/volume] in Serum or Plasma Vitamin D 25 hydroxy Lab Routine Vitamin D deficiency Expected: 07/10/2024 (Approximate), Expires: 07/10/2025 [facility] Comment on above: Expected: 07/10/2024 (Approximate), Expires: 07/10/2025 Start: 07-10-2024 End: 07-10-2025 Basic metabolic 1998 panel - Serum or Plasma Basic metabolic panel Lab Routine Encounter for long-term (current) use of medications Expected: 07/10/2024 (Approximate), Expires: 07/10/2025 [facility] Comment on above: Expected: 07/10/2024 (Approximate), Expires: 07/10/2025 Start: 07-10-2024 End: 07-10-2025 CBC W Auto Differential panel - Blood CBC and differential Lab Routine Encounter for long-term (current) use of medications Expected: 07/10/2024 (Approximate), Expires: 07/10/2025 [facility] Comment on above: Expected: 07/10/2024 (Approximate), Expires: 07/10/2025 Start: 07-10-2024 End: 07-10-2025 Hemoglobin A1c/Hemoglobin.total in Blood Hemoglobin A1c Lab Routine Prediabetes Expected: 07/10/2024 (Approximate), Expires: 07/10/2025 [facility] Work Phone: Comment on above: Expected: 07/10/2024 (Approximate), Expires: 07/10/2025 Start: 07-10-2024 End: 07-10-2025 Hepatic function 2000 panel - Serum or Plasma Hepatic function panel Lab Routine Encounter for long-term (current) use of medications Expected: 07/10/2024 (Approximate), Expires: 07/10/2025 [facility] Comment on above: Expected: 07/10/2024 (Approximate), Expires: 07/10/2025 Start: 07-10-2024 End: 07-10-2025 Lipid 1996 panel - Serum or Plasma Lipid panel Lab Routine Dyslipidemia (CMS/HCC) Expected: 07/10/2024 (Approximate), Expires: 07/10/2025 [facility] Comment on above: Expected: 07/10/2024 (Approximate), Expires: 07/10/2025 Start: 07-10-2024 End: 07-10-2025 MR Shoulder - right WO contrast MR shoulder right wo IV contrast Imaging Routine Chronic right shoulder pain Expected: 07/10/2024, Expires: 07/10/2025 [facility] Comment on above: Expected: 07/10/2024 , Expires: 07/10/2025 Start: 07-10-2024 End: 07-10-2025 Thyrotropin [Units/volume] in Serum or Plasma TSH Lab Routine Primary hypothyroidism (CMS/HCC) Expected: 07/10/2024 (Approximate), Expires: 07/10/2025 [facility] Comment on above: Expected: 07/10/2024 (Approximate), Expires: 07/10/2025 Start: 07-10-2024 End: 07-10-2025 Thyroxine (T4) free [Mass/volume] in Serum or Plasma T4, free Lab Routine Primary hypothyroidism (CMS/HCC) Expected: 07/10/2024 (Approximate), Expires: 07/10/2025 [facility] Comment on above: Expected: 07/10/2024 (Approximate), Expires: 07/10/2025 Start: 07-10-2024 End: 07-10-2025 Triiodothyronine (T3) Free [Mass/volume] in Serum or Plasma T3, free Lab Routine Primary hypothyroidism (CMS/HCC) Expected: 07/10/2024 (Approximate), Expires: 07/10/2025 [facility] Comment on above: Expected: 07/10/2024 (Approximate), Expires: 07/10/2025 Start: 07-10-2024 End: 07-10-2024 Patient encounter procedure [facility] Comment on above: Arrived Start: 01-23-2024 Influenza vaccination Influenza Vacc ine (#1) [facility] Start: 09-08-2005 Screening for malign ant neoplasm of cervix [facility] Start: 09-08-1996 Screening for malign ant neoplasm of cervix Pap Smear [facility] Start: 1975 Screening for malign ant neoplasm of colon [facility] Payers Date Payer Category Payer Self-pay 2022 Medicaid [id number] 2022 Medicaid [id number] 2022 Unknown 1975 Unknown [id number] 2.16.84 0.1.166567.3.579.2.593 1975 Unknown [id number] 2.16.84 0.1.144284.3.579.2.593 1975 Unknown [id number] 2.16.84 0.1.880054.3.579.2.593 1975 Unknown [id number] 2.16.84 0.1.755803.3.579.2.593 1975 Unknown [id number] 2.16.84 0.1.366041.3.579.2.593 1975 Unknown [id number] 2.16.8 40.1.196137.3.579.2.1286 1975 Unknown [id number] 2.16.8 40.1.389386.3.579.2.1286 1975 Unknown [id number] 2.16.8 40.1.422856.3.579.2.1286 1975 Unknown [id number] 2.16.8 40.1.991745.3.579.2.1286 1975 Unknown [id number] 2.16.8 40.1.535071.3.579.2.128 1975 Unknown [id number] 2.16.8 40.1.055235.3.579.2.1285 1975 Unknown [id number] 2.16.8 40.1.419060.3.579.2.1285 1975 Unknown [id number] 2.16.8 40.1.001770.3.579.2.1285 1975 Unknown [id number] 2.16.8 40.1.845344.3.579.2.1285 1975 Unknown [id number] 2.16.8 40.1.111221.3.579.2.1285 1975 Unknown [id number] 2.16.8 40.1.218793.3.579.2.1285 1975 Unknown [id number] 2.16.8 40.1.515504.3.579.2.1285 1975 Unknown [id number] 2.16.8 40.1.625626.3.579.2.1285 1975 Unknown [id number] 2.16. 840.1.871336.3.579.2. 1975 Unknown [id number] 2.16. 840.1.561377.3.579.2. 1975 Unknown [id number] 2.16. 840.1.978179.3.579.2. 1975 Unknown [id number] 2.16. 840.1.169914.3.579.2. 1975 Unknown [id number] 2.16. 840.1.408883.3.579.2. 1975 Unknown [id number] 2.16. 840.1.793649.3.579.2. 1975 Unknown [id number] 2.16. 840.1.892130.3.579.2. 1975 Unknown [id number] 2.16. 840.1.639910.3.579.2. 1975 Unknown [id number] 2.16.84 0.1.849300.3.579.2.9 1975 Unknown [id number] 2.16.84 0.1.153203.3.579.2.9 1975 Unknown [id number] 2.16.84 0.1.332901.3.579.2.9 1975 Unknown [id number] 2.16.84 0.1.290228.3.579.2.1258 1975 Unknown [id number] 2.16.84 0.1.235258.3.579.2.1259 1959 Unknown [id number] 2.1 6.840.1.514725.19 1959 Unknown [id number] Unknown [id number] 2.16.8 40.1.528084.3.579.2.531 Social History Date Type Detail Facility Start: 01-10-2024 End: 07-10-2024 Sex Assigned At [facility] Other Start: 04-26-2023 Tobacco smoking stat [facility] Ex-smoker [facility] Start: 05-24-1995 End: 05-24-2010 History of tobacco use Current smoker [facility] Start: 05-24-1995 End: 05-24-2010 History of tobacco use Cigarette Smoker [facility] Start: 04-26-2023 End: 07-10-2024 Cigarettes smoked current (pack per day) - Reported 1 [facility] Start: 04-26-2023 Tobacco use and exposure Smokeless tobacco non-user [facility] Start: 01-10-2024 End: 07-10-2024 Alcoholic beverage intake Lifetime non-drinker (finding) [facility] Start: 1975 Sex assigned at Not on file [facility] Goals Date Patient Goal Desired Activity /State Personal health goal History of Present illness Narrative 07-10-2024 Hitesh Obregon MD - 07/10/2024 1:38 PM Lamberto Obregon MD - 07/10/2024 1:37 PM Lamberto Obregon MD - 07/10/2024 1:37 PM Lamberto Obregon MD - 07/10/2024 1:37 PM EST Note Date & Type Note Facility 07-10-2024 History of Presen t illness Narrative Associated Problem(s): Primary hypothyroidism (CMS/HCC) No signs of low thyroid and due for labs. Continue medication daily. Associated Problem(s): GERD (gastroesophageal reflux disease) Symptoms controlled with omeprazole and continue. Associated Problem(s): Generalized anxiety disorder (CMS/HCC) Mood controlled with medication and continue. Follow up with psychiatry. Associated Problem(s): Chronic right shoulder pain ROM improved after PT but continued pain and weakness. Check MRI and will need to see ortho after results. Associated Problem(s): Bipolar affective disorder, currently depressed, moderate (CMS/HCC) Mood controlled with medication and continue. Follow up with psychiatry. Images from the original note were not included. Subjective Patient ID: Mariana Victor is a 48 y.o. female who presents for Follow-up (6m f/up) and Shoulder Pain (Right shoulder pain. Wants mri?). Follow up right shoulder pain, thyroid, GERD, bipolar, anxiety, and back pain. Continues to have right shoulder pain. Completed PT and not as stiff. Feels like ROM improved. Still weakness and not able to use arm away from body. Severe pain with lifting. Using OTC and no changed. PT recommended MRI shoulder. Taking synthroid daily and no signs of low thyroid. No changes to hair, skin, or nails. GERD controlled with omeprazole. Denies epigastric pain or burning and not waking up with symptoms. Mood stable with medication. Following with psychiatry and on vraylar and lithium. Not as down or sad and feels happier. Anxiety stable. Not as stressed out or overwhelmed. Not as nervous or worry as much. Not as raya or irritable. Back pain unchanged. Continued pain in low back and across top hips. Pain radiates down legs. Seen by pain management and plan on procedures. Review of Systems Respiratory: Negative for cough, shortness of breath and wheezing. Cardiovascular: Negative for chest pain and palpitations. Gastrointestinal: Negative for abdominal pain, diarrhea, nausea and vomiting. Genitourinary: Negative for dysuria. Objective Physical Exam Constitutional: General: She is not in acute distress. Appearance: Normal appearance. HENT: Head: Normocephalic. Right Ear: Tympanic membrane normal. Left Ear: Tympanic membrane normal. Eyes: Extraocular Movements: Extraocular movements intact. Pupils: Pupils are equal, round, and reactive to light. Cardiovascular: Rate and Rhythm: Normal rate and regular rhythm. Heart sounds: No murmur heard. No friction rub. No gallop. Pulmonary: Effort: Pulmonary effort is normal. Breath sounds: Normal breath sounds. No wheezing, rhonchi or rales. Abdominal: General: Bowel sounds are normal. There is no distension. Palpations: Abdomen is soft. Tenderness: There is no abdominal tenderness. There is no guarding or rebound. Musculoskeletal: Cervical back: Neck supple. Right lower leg: No edema. Left lower leg: No edema. Neurological: Mental Status: She is alert. Assessment/Plan Problem List Items Addressed This Visit Bipolar affective disorder, currently depressed, moderate (CMS/HCC) Mood controlled with medication and continue. Follow up with psychiatry. Dyslipidemia (CMS/HCC) Relevant Orders Lipid panel Generalized anxiety disorder (CMS/HCC) Mood controlled with medication and continue. Follow up with psychiatry. Primary hypothyroidism (CMS/HCC) No signs of low thyroid and due for labs. Continue medication daily. Relevant Orders TSH T4, free T3, free Prediabetes Relevant Orders Hemoglobin A1c Vitamin D deficiency Relevant Orders Vitamin D 25 hydroxy GERD (gastroesophageal reflux disease) Symptoms controlled with omeprazole and continue. Chronic right shoulder pain - Primary ROM improved after PT but continued pain and weakness. Check MRI and will need to see ortho after results. Relevant Orders MR shoulder right wo IV contrast Encounter for long-term (current) use of medications Relevant Orders Basic metabolic panel CBC and differential Hepatic function panel documented in this encounter [facility] Evaluation note 05-22-2021 Note Date & Type Note Facility 05-22-2021 Evaluation note Encounter Date Diagnosis Assessment [...] and we will refer her to the [place] area. Apr, Degeneration of intervertebral disc at L5-S1 level (ICD-10 - M51.37) [email or web address] Other History general Narrative - Reported 08-23-2015 Note Date & Type Note Facility 08-23-2015 History general N arrative - Reported Type Medical History graves disease Medical History acid reflux Medical History anxiety Medical History 08/23/2015 EGD/Colon oscopy-tiny hiatal hernia, noraml colonoscopy,hemorrhoids Medical History fibromyalgia Surgical History cholecystectomy Surgical History hysterectomy Hospitalization History see above [email or web address] Other Evaluation note Note Date & Type Note Facility Evaluation note Diagnosis Bipolar affective disorder, currently depressed, moderate (CMS/HCC)- Primary Bipolar I disorder, most recent episode (or current) depressed, moderate Generalized anxiety disorder (CMS/HCC) Generalized anxiety disorder Abscess of left groin Acute pain of left shoulder Degenerative lumbar spinal stenosis Spinal stenosis of lumbar region Primary hypothyroidism (CMS/HCC)- Primary Unspecified hypothyroidism Gastroesophageal reflux disease without esophagitis Esophageal reflux Abnormal radionuclide bone scan Bipolar affective disorder, currently depressed, moderate (CMS/HCC) Bipolar I disorder, most recent episode (or current) depressed, moderate Generalized anxiety disorder (CMS/HCC) Generalized anxiety disorder Degenerative lumbar spinal stenosis Spinal stenosis of lumbar region Breast cancer screening by mammogram Colon cancer screening Special screening for malignant neoplasms, colon Chronic right shoulder pain- Primary Pain in joint, shoulder region Gastroesophageal reflux disease without esophagitis Esophageal reflux Primary hypothyroidism (CMS/HCC) Unspecified hypothyroidism Bipolar affective disorder, currently depressed, moderate (CMS/HCC) Bipolar I disorder, most recent episode (or current) depressed, moderate Generalized anxiety disorder (CMS/HCC) Generalized anxiety disorder Degenerative lumbar spinal stenosis Spinal stenosis of lumbar region Generalized anxiety disorder (CMS/HCC) Generalized anxiety disorder Fibromyalgia Unspecified myalgia and myositis Degenerative lumbar spinal stenosis Spinal stenosis of lumbar region documented in this encounter [facility] Evaluation note Note Date & Type Note Facility Evaluation note Diagnosis Primary hypothyroidism (CMS/HCC)- Primary Unspecified hypothyroidism documented in this encounter [facility] Evaluation note Note Date & Type Note Facility Evaluation note Diagnosis Bipolar affective disorder, currently depressed, moderate (CMS/HCC)- Primary Bipolar I disorder, most recent episode (or current) depressed, moderate Generalized anxiety disorder (CMS/HCC) Generalized anxiety disorder Abscess of left groin Acute pain of left shoulder Degenerative lumbar spinal stenosis Spinal stenosis of lumbar region Primary hypothyroidism (CMS/HCC)- Primary Unspecified hypothyroidism Gastroesophageal reflux disease without esophagitis Esophageal reflux Abnormal radionuclide bone scan Bipolar affective disorder, currently depressed, moderate (CMS/HCC) Bipolar I disorder, most recent episode (or current) depressed, moderate Generalized anxiety disorder (CMS/HCC) Generalized anxiety disorder Degenerative lumbar spinal stenosis Spinal stenosis of lumbar region Breast cancer screening by mammogram Colon cancer screening Special screening for malignant neoplasms, colon Chronic right shoulder pain- Primary Pain in joint, shoulder region Gastroesophageal reflux disease without esophagitis Esophageal reflux Primary hypothyroidism (CMS/HCC) Unspecified hypothyroidism Bipolar affective disorder, currently depressed, moderate (CMS/HCC) Bipolar I disorder, most recent episode (or current) depressed, moderate Generalized anxiety disorder (CMS/HCC) Generalized anxiety disorder Degenerative lumbar spinal stenosis Spinal stenosis of lumbar region Chronic right shoulder pain- Primary Pain in joint, shoulder region Primary hypothyroidism (CMS/HCC) Unspecified hypothyroidism Gastroesophageal reflux disease without esophagitis Esophageal reflux Bipolar affective disorder, currently depressed, moderate (CMS/HCC) Bipolar I disorder, most recent episode (or current) depressed, moderate Generalized anxiety disorder (CMS/HCC) Generalized anxiety disorder Prediabetes Other abnormal glucose Encounter for long-term (current) use of medications Encounter for long-term (current) use of other medications Vitamin D deficiency Dyslipidemia (CMS/HCC) Other and unspecified hyperlipidemia documented in this encounter [facility] Reason for Referral Reason Evaluate and Tr eat Diagnosis 1 Degeneration of inte rvertebral disc at L5-S1 level (M51.37) Referral Organization [facility] Referring Provider First Name Jose Alfredo Referring Provider Last Name Perez Referring Provider Specialty Neurologica l Surgery Referred Organization [facility] Referred Provider Jr. Vazquez William Referred Address [address] [facility], [place],[address] Referred Provider Specialty Pain Medicin e Referral Priority Routine General Notes Cherelle Christopher 022 10:15:22 AM >Received today and waiting for office notes to be locked before sending Summary Purpose Family History No Family History Records FoundNo Family History Records FoundNo Family History Records FoundNo Family History Records FoundNo Family History Records Found Advance Directives No Advanced Directives Records FoundNo Advanced Directives Records FoundNo Advanced Directives Records FoundNo Advanced Directives Records FoundNo Advanced Directives Records Found Additional Source Comments REASON FOR VISIT (unrecogniz ed section and content) Reason Comments Med Refill Reason Comments Follow-up 6m f/up Shoulder Pain Right shoulder pain. Wants mri? 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 Start Date End Date Hitesh Obregon MD [address] [place] [address] PCP - General Family Medicine 10/20/23 Erin Oconnell PA [address] [place] [address] PCP - [facility] 11/22/23 Digital Camera Technician Relationship Specialty Start Date End Date Hitesh Obregon MD [address] [place] [phone] PCP - General Family Medicine 10/20/23 Digital Camera Technician Relationship Specialty Start Date End Date Hitesh Obregon MD [address] [place] [phone] PCP - General Family [facility] 10/20/23 Digital Camera Technician Relationship Specialty Start Date End Date Hitesh Obregon MD [address] [place] [phone] PCP - General Family [facility] 10/20/23 Erin Oconnell PA [address] [place] [address] PCP - [facility] 11/22/23 Digital Camera Technician Relationship Specialty Start Date End Date Hitesh Obregon MD [address] [place] [phone] PCP - General Family [facility] 10/20/23 Erin Oconnell PA [address] [place] [address] PCP [facility] 11/22/23 FOR RECORDS PERTAINING TO PATIENTS WHO ARE [...] BE BASED ON THE PRIMARY CLINICAL RECORDS. [facility], [facility]. provides no warranty or guarantee of the accuracy or completeness of information in this document.
--- OUTSIDE RECORDS SUMMARY | 2024-08-07 10:50 | XMS_ITS | CCD ---
Author Organization [facility] Care Team Providers Care Pocket Assembler Name Role Phone Jose Alfredo Perez Unavailable [...] Referring Unavailable NADERER, HITESH Primary Care Unavailable VAZQUZE, OTIS E Attending Unavailable VAZQUEZ, OTIS E [...] Hitesh Primary Care Provider Erin Rajput Unavailable Viral Ha Attending Unavailab Viral Hoff Admitting Unavailab HITESH Schwab Attending Unavailable HITESH OBREGON Attending Unavailable ADORE MENDOZA Attending Unavailable DEVIN BHANDARI Attending Unavailable MINDI, HITESH Attending Unavailable Allergies Allergy Classification Reported Allergen(s) Allergy Type Date of Onset Reaction(s) Facility Amoxicillin / Clavulanate (1 source) Amoxicillin / Clavulanate; Translations: [amoxicillin-cl avulanate] Drug Allergy [facility] Repository Latex (1 source) Latex; Translations: [Latex] Substance Allergy [facility] Repository (1 source) Amoxicillin / Clavulanate Drug Allergy facial swelling D[facility] Other (2 sources) Latex; Translations: [LATEX] Drug allergy 5 Unknown [facility] Repository (1 source) Amoxicillin / Clavulanate Drug Allergy 3 [facility] Repository (1 source) Latex Drug allergy (disorder) 3 [facility] Repository (1 source) Levamisole Drug Allergy 3 [facility] Repository (1 source) Meclizine Drug Allergy 3 [facility] Repository (7 sources) AMOXICILLIN-POT CLAVULANATE; Translations: [AMOXICILLIN-PO T CLAVULANATE] Propensity to adverse reactions to drug (disorder) 5 Swelling [facility] Repository (6 sources) Latex Allergy to substance 5 [facility] (1 source) Amoxicillin Drug Allergy 3 [facility] Repository (1 source) Clavulanate Drug Allergy 3 [facility] Repository (1 source) Latex Drug allergy (disorder) 3 [facility] Repository Medications Current Medications Medication Drug [...] and 300 mg before bedtime. 11/19/2022 Active Tuttle Carbonat e 300 MG Oral for 30 [...] current use of drug therapy; Translations: [Other chcf (current) drug therapy] Onset: 5 07-10-2024 Episodic [...] 06-05-2021 Episodic Other aftercare (6 sources) Other chcf (current) drug therapy; Translations: [OTH SHELTER CURRENT DRUG THERAPY] Onset: 09-29-2021 Episodic Other [...] Value Interpretation Reference Range Facility ALL T3 [facility] 01-21-2024 Free T3 [Mass/Vol] 1.68 pg/mL Low 2.18 - 3. 98 pg/mL [facility] ALL THYROID STIM HORMONEon 0 01-21-2024 TSH Qn 6.740 m[IU]/L High [facility] ALL THYROXINE (T4) FREEon Free T4 [Mass/Vol] 1.00 ng/dL 0.76 - 1. 46 ng/dL [facility] No Panel Informationon 01-20 Interpretation and review of laboratory results Abnormal [facility] MR LUMBAR SPINE WO CONTon MR LUMBAR [...] Fair[place] MD on 10/29/2023 1:26 PM Normal [facility] Pain Management Office/Clini c Noteon 10-29-2023 [...] noneChiropractic: noneInjections: PRN with Dr. Vazquez in [facility]. Surgery: noneTENS: Home unit Depression: Yes [...] Injections: helps Comments Injections: Dr. Vazquez in [facility] Date Surgery: none Recent testing: Yes [...] her neurosurgeon, (more content not included)... Normal [facility] Neurosurgery Office/Clinic N oteon 10-19-2023 Neurosurgery Office/Clinic [...] sagittal balance Patient denies physical therapy or insurance healthcare representative. Her pain has been refractory to oral [...] bilaterally. Bilateral (more content not included)... Normal [facility] Provider Letteron 10-19-2023 Provider Letter Hitesh Obregon MD [address] [place] [address] Re: Mariana Victor Date of Visit: 10/19/2023 Dear Hitesh Obregon, Thank you for allowing me to contribute to the care of your patient, Mariana Victor. Attached is my office note and you will find my assessment and recommendations from our encounter today. Please do not hesitate to contact me with any questions or concerns. Sincerely, Tia Webb PA-C [facility] [address] [place] [address] The following document(s) were included in the letter: October 19, 2023 14:26:47 EDT - (10/19/2023) Neurosurgery Office Visit Note Normal [facility] NM Bone SPECT CT with Whole [...] Electronically Signed in Other Vendor System) Normal [facility] Neurosurgery Office/Clinic N oteon 09-13-2023 Neurosurgery Office/Clinic [...] sagittal balance Patient denies physical therapy or insurance healthcare representative. Her pain has been refractory to oral [...] 5 o (more content not included)... Normal [facility] Glucose Glucometer (dC) [M ass/Vol]on 09-03-2023 Glucose [Mass/Vol] 99 mg/dL Normal 65-99 [facility] CALCIUMon 07-19-2023 Calcium [Mass/Vol] 9.9 mg/dL Normal 8.5-10.5 [facility] Comment on above: Performed By: #### 1 7861-6, ELEC, 3016-3, 3024-7, 20223-0 #### [facility] ([id number]) [address], [address] [place] [address] ELECTROLYTESon 07-19-2023 Anion gap [Moles/Vol] 8 mmol/L Normal 5-15 [facility] Comment on above: Performed By: #### 1 7861-6, ELEC, 3016-3, 3024-7, 40296-0 #### [facility] ([id number]) [address], [address] [place] [address] Chloride [Moles/Vol] 100 mmol/L Normal 98-109 [facility] Comment on above: Performed By: #### 1 7861-6, ELEC, 3016-3, 3024-7, 47145-5 #### [facility] ([id number]) [address], [address] [place] [address] CO2 [Moles/Vol] 27 mmol/L Normal 22-32 [facility] Comment on above: Performed By: #### 1 7861-6, ELEC, 3016-3, 3024-7, 04874-0 #### [facility] ([id number]) [address], [address] [place] [address] Potassium [Moles/Vol] 4.0 mmol/L Normal 3.5-5.0 [facility] Comment on above: Performed By: #### 1 7861-6, ELEC, 3016-3, 3024-7, 54468-2 #### [facility] ([id number]) [address], [address] [place] [address] Sodium [Moles/Vol] 135 mmol/L Normal 134-146 [facility] Comment on above: Performed By: #### 1 7861-6, ELEC, 3016-3, 3024-7, 59609-2 #### [facility] ([id number]) [address], [address] [place] [address] FREE T4on 07-19-2023 Free T4 [Mass/Vol] 1.00 ng/dL Normal 0.61-1.60 [facility] Comment on above: Performed By: #### 1 7861-6, ELEC, 3016-3, 3024-7, 01693-9 #### [facility] ([id number]) [address], [address] [place] [address] LITHIUMon 07-19-2023 Tuttle [Moles/Vol] 0.9 mmol/L Normal 0.5-1.5 [facility] Comment on above: Performed By: #### 1 7861-6, ELEC, 3016-3, 3024-7, 64892-1 #### [facility] ([id number]) [address], [address] [place] [address] TSH Qnon 07-19-2023 TSH 9.27 uIU/mL High 0.49-4.67 [facility] Comment on above: Performed By: #### 1 7861-6, ELEC, 3016-3, 3024-7, 23305-2 #### [facility] ([id number]) [address], [address] [place] [address] Glucose Glucometer (BldC) [M ass/Vol]on 07-09-2023 Glucose [Mass/Vol] 95 mg/dL Normal 65-99 [facility] Neurosurgery Office/Clinic N oteon 05-31-2023 Neurosurgery [...] activity level/function. Patient denies physical therapy or insurance healthcare representative. Her pain has been refractory to oral [...] back pa (more content not included)... Normal [facility] XR Scoliosis Study 2 or 3 [...] Electronically Signed in Other Vendor System) Normal [facility] CT Spine Lumbar w/o Contrast on [...] Electronically Signed in Other Vendor System) Normal [facility] XR Spine Lumbosacral Bending 2-3 Viewson [...] Electronically Signed in Other Vendor System) Normal [facility] Neurosurgery Office/Clinic N oteon 03-15-2023 Neurosurgery Office/Clinic Note Chief Complaint back consult History of Present Illness Patient is a pleasant 47-year-old female with a history of fibromyalgia, insulin resistance, Vitamin D defiiciency, and Graves' disease, who presents to the outpatient neurosurgical clinic today as a new patient, at the request of her treating pain management provider, Gt Lopez PA-C ([facility]), for consultation on behalf of [...] activity level/function. Patient denies physical therapy or insurance healthcare representative. Her pain has been refractory to oral [...] has no children. She lives independently in [place]. Patient denies nicotine or alcohol. She reports daily recreational marijuana use, but otherwise denies recreational drugs. Patient is currently unemployed. 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 Patient states no [place] of Workmen's Compensation or third-republican insurance claims [...] digital compressi (more content not included)... Normal [facility] Provider Letteron 03-15-2023 Provider Letter Hitesh Obregon MD [address] [place] [address] Re: Mariana Victor Date of Visit: 03/15/2023 Dear Hitesh Obregon, Thank you for allowing me to contribute to the care of your patient, Mariana Victor. Attached is my office note and you will find my assessment and recommendations from our encounter today. Please do not hesitate to contact me with any questions or concerns. Sincerely, Tia Webb PA-[place] [facility] [address] The following document(s) were included in the letter: March 15, 2023 12:49:11 EDT - (03/15/2023) Neurosurgery Office Visit Note Normal [facility] LITHIUMon 12-31-2021 Tuttle (Eskalith(R)), Serum 0.5 mmol/L Normal 0.5-1.2 [facility] Comment on above: Result Comment: Plas ma concentration of 0.5 - 0.8 mmol/L are advised for long-term use; concentrations of up to 1.2 mmol/L may be necessary during acute treatment. Detection Limit = 0.1 <0.1 indicates None Detected Performed By: #### L ITHIUM ####[facility] [address] [place], [place] [address]PtMartín George FREE T3on 12-29-2021 FREE T3 2.57 pg/mlL Normal 2.18-3.98 [facility] Comment on above: Performed By: #### T SH, FT3 #### [facility] Laboratory [address] [place], [place] [address] Dr. Vijay George FREE T4on 12-29-2021 Free T4 [Mass/Vol] 1.08 ng/dL Normal 0.76-1.46 [facility] Comment on above: Performed By: #### F T4 ####[facility] [address] [place], [place] [address]SwDr. Vijay George TSHon 12-29-2021 TSH 1.091 uIU/mL Normal 0.358-3.740 [facility] Comment on above: Performed By: #### T SH, FT3 ####[facility] [address] [place] [address]Dr. Vijay George LITHIUMon 10-01-2021 Tuttle (Eskalith(R)), Serum 0.4 mmol/L Critically low 0.5-1.2 [facility] Comment on above: Result Comment: Plas ma concentration of 0.5 - 0.8 mmol/L are advised for long-term use; concentrations of up to 1.2 mmol/L may be necessary during acute treatment. Detection Limit = 0.1 <0.1 indicates None Detected Performed By: #### L ITHIUM ####[facility] [address] [place], [place] [address]Dr. Vijay George FREE T3on 09-29-2021 FREE T3 1.92 pg/mlL Critically low 2.18-3.98 [facility] Comment on above: Performed By: #### T SH, FT3 ####[facility] [address] [place], [place] [address]Dr. Vijay George FREE T4on 09-29-2021 Free T4 [Mass/Vol] 1.07 ng/dL Normal 0.76-1.46 [facility] Comment on above: Performed By: #### F T4 ####[facility] [address] [place], [place] [address]Dr. Vijay George TSHon 09-29-2021 TSH 3.695 uIU/mL Normal 0.358-3.740 [facility] Comment on above: Performed By: #### T SH, FT3 ####[facility] [address] [place], [place] [address]Dr. Vijay George TSH RANGE SEE BELOW Normal [facility] Comment on above: Result Comment: <0.3 4 UIU/ml HYPERTHYROID 0.34-5.60 UIU/ml EUTHYROID >5.60 UIU/ml HYPOTHYROID Performed By: #### T SH, FT3 ####[facility] [address] [place], [place] [address]Dr. Vijay George LITHIUMon 07-02-2021 Tuttle (Eskalith(R)), Serum 0.8 mmol/L Normal 0.5-1.2 [facility] Comment on above: Result Comment: Plas ma concentration of 0.5 - 0.8 mmol/L are advised for long-term use; concentrations of up to 1.2 mmol/L may be necessary during acute treatment. Detection Limit = 0.1 <0.1 indicates None Detected Performed By: #### L ITHIUM #### [facility] [address] [place], [place] [address] Dr. Vijay George CBC AUTO DIFFon 06-30-2021 BASO # 0.1 103/ul Normal 0.0-0.1 [facility] Comment on above: Performed By: #### C BC ####[facility] [address] [place] [id number]. Vijay George Basophils/100 WBC (Bld) 1.0 % Normal 0.2-2.0 [facility] Comment on above: Performed By: #### C BC ####[facility] [address] [place] [id number] George EO # 0.4 103/ul Normal 0.0-0.7 [facility] Comment on above: Performed By: #### C BC ####[facility] [address] [place] [id number]. Vijay George Eosinophils/100 WBC (Bld) 5.5 % Normal 0.9-7.0 [facility] Comment on above: Performed By: #### C BC ####[facility] [address] [place] [id number] George Erythrocyte distribution width (RBC) [Ratio] 12.8 % Normal 11.0-15.0 [facility] Comment on above: Performed By: #### C BC ####[facility] [address] [place] [id number] George Hematocrit (Bld) [Volume fraction] 42.3 % Normal 36.0-48.0 [facility] Comment on above: Performed By: #### C BC ####[facility] [address] [place] [id number]. Vijay George Hemoglobin (Bld) [Mass/Vol] 13.1 g/dL Normal 12.0-16.0 [facility] Comment on above: Performed By: #### C BC ####[facility] [address] [place] [id number]. Vijay George IG # 0.02 10e3/ul Normal 0.00-0.03 [facility] Comment on above: Performed By: #### C BC ####[facility] [address] [place] [id number]. Vijay George IG % 0.2 % Normal 0.0-0.5 [facility] Comment on above: Performed By: #### C BC ####[facility] [address] [place] [address]Dr. Vijay George LYMPH # 1.6 103/ul Normal 1.2-3.8 [facility] Comment on above: Performed By: #### C BC ####[facility] [address] [place] [address]Dr. Vijay George Lymphocytes/100 WBC (Bld) 19.4 % Critically low 20.5-60.0 [facility] Comment on above: Performed By: #### C BC ####[facility] [address] [place] [id number]. Vijay George MANUAL DIFF REQ NO Normal [facility] Comment on above: Performed By: #### C BC ####[facility] [address] [place] [address]Dr. Vijay George MCH (RBC) [Entitic mass] 29.8 pg Normal 26.7-34.0 [facility] Comment on above: Performed By: #### C BC ####[facility] [address] [place] [id number]. Vijay George MCHC (RBC) [Mass/Vol] 31.0 g/dL Normal 29.9-35.2 [facility] Comment on above: Performed By: #### C BC ####[facility] [address] [place] [id number]. Vijay George MCV (RBC) [Entitic vol] 96.4 fL Normal 81.0-99.0 [facility] Comment on above: Performed By: #### C BC ####[facility] [address] [place] [id number]. Vijay George MONO # 0.5 103/ul Normal 0.3-0.8 [facility] Comment on above: Performed By: #### C BC ####[facility] [address] [place] [id number]. Vijay George Monocytes/100 WBC (Bld) 6.1 % Normal 1.7-12.0 [facility] Comment on above: Performed By: #### C BC ####[facility] [address] [place], [place] [address]Dr. Vijay George NEUT # 5.4 103/ul Normal 1.4-6.5 [facility] Comment on above: Performed By: #### C BC ####[facility] [address] [place], [place] [address]Dr. Vijay George Neutrophils/100 WBC (Bld) 67.8 % Normal 43.0-75.0 [facility] Comment on above: Performed By: #### C BC ####[facility] [address] [place] [id number]. Vijay George Platelet mean volume (Bld) [Entitic vol] 10.4 fL Normal 9.5-13.5 [facility] Comment on above: Performed By: #### C BC ####[facility] [address] [place] [id number]. Vijay George PLT 313 103/ul Normal 150-450 [facility] Comment on above: Performed By: #### C BC ####[facility] [address] [place] [id number]. Vijay Ariel RBC 4.39 106/ul Normal 4.20-5.40 [facility] Comment on above: Performed By: #### C BC ####[facility] [address] [place] [id number] George WBC 8.0 103/ul Normal 4.0-11.0 [facility] Comment on above: Performed By: #### C BC ####[facility] [address] [place] [address]Dr. Vijay George FREE T3on 06-30-2021 FREE T3 2.14 pg/mlL Critically low 2.77-5.27 [facility] Comment on above: Performed By: #### B MP, TSH, FT3, LIVER, LIPID #### [facility] [address] [place] [address] [address] Vijay George FREE T4on 06-30-2021 Free T4 [Mass/Vol] 1.24 ng/dL Normal 0.78-2.19 [facility] Comment on above: Performed By: #### V ITAD, FT4 ####[facility] [address] [place] [address]Dr. Vijay George GLYCOHEMOGLOBIN A1Con 2021 ADA RECOMMENDATION ADA THERAPEUTIC TARG ET 6.0 - 7.0 ACTION SUGGESTED > 7.0 Normal [facility] Comment on above: Performed By: #### A 1C #### [facility] [address] [place] [address] [address] Vijay George Glucose [Mass/Vol] 108 mg/dL Normal [facility] Comment on above: Performed By: #### A 1C #### [facility] [address] [place] [address] [address] Vijay George HbA1c (Bld) [Mass fraction] 5.4 % Normal <=6.0 [facility] Comment on above: Performed By: #### A 1C #### [facility] [address] [place] [address] [address] Vijay George LIPID PROFILEon 06-30-2021 CHOL-HDL RATIO NORM SEE BELOW Normal [facility] Comment on above: Result Comment: 3.3 - 4.4 LOW RISK 4.4 - 7.1 AVERAGE RISK 7.1 - 11.0 MODERATE RISK >11.0 HIGH RISK Performed By: #### B MP, TSH, FT3, LIVER, LIPID #### [facility] [address] [place] [address] [address] Vijay George Cholesterol [Mass/Vol] 223 mg/dL Critically high <=200 [facility] Comment on above: Performed By: #### B MP, TSH, FT3, LIVER, LIPID #### [facility] [address] [place] [address] [address] Vijay George Cholesterol in HDL [Mass/Vol] 56 mg/dL Normal [facility] Comment on above: Performed By: #### B MP, TSH, FT3, LIVER, LIPID #### [facility] [address] [place] [address] [address] Vijay George Cholesterol in LDL [Mass/Vol] 115.8 mg/dL Normal [facility] Comment on above: Performed By: #### B MP, TSH, FT3, LIVER, LIPID #### [facility] [address] [place] [address] [address] Vijay George Cholesterol.total/Ch olesterol in HDL [Mass ratio] 4.0 {ratio} Normal [facility] Comment on above: Performed By: #### B MP, TSH, FT3, LIVER, LIPID #### [facility] [address] [place] [address] [address] Vijay George HDL NORMAL > or = 60 mg/dl - LO W CARDIOVASCULAR RISK <40 mg/dl - HIGH CARDIOVASCULAR RISK Normal [facility] Comment on above: Performed By: #### B MP, TSH, FT3, LIVER, LIPID #### [facility] [address] [place] [address] [address] Vijay George LDL CALC NORMAL SEE BELOW Normal [facility] Comment on above: Result Comment: <100 mg/dl OPTIMAL 100 - 129 mg/dl NEAR OR ABOVE OPTIMAL 130 - 159 mg/dl BORDERLINE HIGH 160 - 189 mg/dl HIGH >190 mg/dl VERY HIGH Performed By: #### B MP, TSH, FT3, LIVER, LIPID #### [facility] [address] [place] [address] [address] Viajy George Triglyceride [Mass/Vol] 256 mg/dL Critically high <=150 [facility] Comment on above: Performed By: #### B MP, TSH, FT3, LIVER, LIPID #### [facility] [address] [place] [address] Dr. Vijay George VLDL CALC 51.2 mg/dL Normal [facility] Comment on above: Performed By: #### B MP, TSH, FT3, LIVER, LIPID #### [facility] [address] [place] [address] Dr. Vijay George LIVER PROFILEon 06-30-2021 Albumin [Mass/Vol] 4.0 g/dL Normal 3.5-5.0 [facility] Comment on above: Performed By: #### B MP, TSH, FT3, LIVER, LIPID #### [facility] [address] [place] [address] Dr. Vijay George Albumin/Globulin [Mass ratio] 1.0 {ratio} Normal [facility] Comment on above: Performed By: #### B MP, TSH, FT3, LIVER, LIPID #### [facility] [address] [place] [address] Dr. Vijay George ALP [Catalytic activity/Vol] 97 U/L Normal 38-126 [facility] Comment on above: Performed By: #### B MP, TSH, FT3, LIVER, LIPID #### [facility] [address] [place] [address] Dr. Vijay George ALT [Catalytic activity/Vol] 25 U/L Normal 9-52 [facility] Comment on above: Performed By: #### B MP, TSH, FT3, LIVER, LIPID #### [facility] [address] [place] [address] Dr. Vijay George AST [Catalytic activity/Vol] 21 U/L Normal 14-36 [facility] Comment on above: Performed By: #### B MP, TSH, FT3, LIVER, LIPID #### [facility] [address] [place] [address] Dr. Vijay George BILI, CONJUGATED 0.0 mg/dL Normal 0.0-0.3 [facility] Comment on above: Performed By: #### B MP, TSH, FT3, LIVER, LIPID #### [facility] [address] [place] [address] Dr. Vijay George Bilirubin [Mass/Vol] 0.2 mg/dL Normal 0.2-1.3 [facility] Comment on above: Performed By: #### B MP, TSH, FT3, LIVER, LIPID #### [facility] [address] [place] [address] Dr. Vijay George Globulin (S) [Mass/Vol] 4.2 g/dL Normal [facility] Comment on above: Performed By: #### B MP, TSH, FT3, LIVER, LIPID #### [facility] [address] [place] [address] Dr. Vijay George Protein [Mass/Vol] 8.2 g/dL Normal 6.1-8.2 [facility] Comment on above: Performed By: #### B MP, TSH, FT3, LIVER, LIPID #### [facility] [address] [place] [address] Dr. Vijay George PROF CHEM 8 (BAS METB)on Anion gap [Moles/Vol] 10.1 mmol/L Normal [facility] Comment on above: Performed By: #### B MP, TSH, FT3, LIVER, LIPID #### [facility] [address] [place] [address] Dr. Vijay George Calcium [Mass/Vol] 9.7 mg/dL Normal 8.4-10.2 [facility] Comment on above: Performed By: #### B MP, TSH, FT3, LIVER, LIPID #### [facility] [address] [place] [address] Dr. Vijay George Chloride [Moles/Vol] 101 mmol/L Normal 98-107 [facility] Comment on above: Performed By: #### B MP, TSH, FT3, LIVER, LIPID #### [facility] [address] [place] [address] Dr. Vijay George CO2 [Moles/Vol] 32.1 mmol/L Critically high 22.0-30.0 [facility] Comment on above: Performed By: #### B MP, TSH, FT3, LIVER, LIPID #### [facility] [address] [address] [address] Vijay George Creatinine [Mass/Vol] 0.82 mg/dL Normal 0.52-1.04 [facility] Comment on above: Performed By: #### B MP, TSH, FT3, LIVER, LIPID #### [facility] [address] [address] [address] Vijay George EGFR-AF AUSTRALIAN >60 Normal >=60 [facility] Comment on above: Performed By: #### B MP, TSH, FT3, LIVER, LIPID #### [facility] [address] [address] [address] Vijay George EGFR-NON AF AUSTRALIAN >60 Normal >=60 [facility] Comment on above: Performed By: #### B MP, TSH, FT3, LIVER, LIPID #### [facility] [address] [place] [address] Dr. Vijay George Glucose [Mass/Vol] 107 mg/dL Critically high 74-106 [facility] Comment on above: Performed By: #### B MP, TSH, FT3, LIVER, LIPID #### [facility] [address] [place] [address] Dr. Vijay George Potassium [Moles/Vol] 4.2 mmol/L Normal 3.4-5.0 [facility] Comment on above: Performed By: #### B MP, TSH, FT3, LIVER, LIPID #### [facility] [address] [address] [address] Vijay George Sodium [Moles/Vol] 139 mmol/L Normal 137-145 [facility] Comment on above: Performed By: #### B MP, TSH, FT3, LIVER, LIPID #### [facility] [address] [place] [address] Dr. Vijay George Urea nitrogen [Mass/Vol] 15.0 mg/dL Normal 7.0-17.0 [facility] Comment on above: Performed By: #### B MP, TSH, FT3, LIVER, LIPID #### [facility] [address] [address] [address] Vijay George Urea nitrogen/Creatinine [Mass ratio] 18.3 mg/mg Normal [facility] Comment on above: Performed By: #### B MP, TSH, FT3, LIVER, LIPID #### [facility] [address] [address] [address] Vijay George TSHon 06-30-2021 TSH 7.199 uIU/mL Critically high 0.470-4.680 [facility] Comment on above: Performed By: #### B MP, TSH, FT3, LIVER, LIPID #### [facility] [address] [address] [address] Vijay George TSH RANGE SEE BELOW Normal [facility] Comment on above: Result Comment: <0.3 4 UIU/ml HYPERTHYROID 0.34-5.60 UIU/ml EUTHYROID >5.60 UIU/ml HYPOTHYROID Performed By: #### B MP, TSH, FT3, LIVER, LIPID #### [facility] [address] [address] [address] Vijay George VITAMIN D 25 OHon 06-30-2021 VIT D 25-OH 33.8 ng/mL [facility] Comment on above: Performed By: #### V ITAD, FT4 ####[facility] [address] [place], [place] [address]IwDr. Vijay George VIT D RANGES SEE BELOW Normal [facility] Comment on above: Result Comment: <20 ng/mL Vit D deficient 20 - <30 ng/mL Vit D insufficient 30 - 100 ng/mL Vit D sufficient >100 ng/mL Potential Toxicity Performed By: #### V ITAD, FT4 ####[facility] [address] [id number]. Vijay George PAP ACOG PANEL 2: 30 to 65on 06-06-2021 . . Normal [facility] Comment on above: Result Comment: Perf ormed at: WB Performed By: #### [id number] #### [facility] [address] [address] [address] Vijay George Age Gdln ACOG Testing 30-65 Normal [facility] Comment on above: Performed By: #### [id number] #### [facility] [address] [address] [address] Vijay George DIAGNOSIS: Comment Normal [facility] Comment on above: Result Comment: NEGA TIVE FOR INTRAEPITHELIAL LESION OR MALIGNANCY. THIS SPECIMEN WAS RESCREENED PART OF OUR BIG DATA PLATFORM ARCHITECT PROGRAM. Performed at: WB Performed By: #### [id number] #### [facility] [address] [address] [address] Vijay George HPV Aptima Negative Normal Negative [facility] Comment on above: Result Comment: This nucleic acid amplification test detects fourteen high-risk HPV types (16,18,31,33,35,39,45,51,52,56,58,59,66,68) without differentiation. Performed at: =G Performed By: #### [id number] #### [facility] [address] [place] [address] Dr. Vijay George Methodology: Comment Normal [facility] Comment on above: Result Comment: This liquid based ThinPrep(R) pap test was screened with the use of an image guided system. Performed at: WB Performed By: #### [id number] #### [facility] [address] [place] [address] Dr. Vijay George Note: Comment Normal [facility] Comment on above: Result Comment: The Pap smear is a screening test designed to aid in the detection of premalignant and malignant conditions of the uterine cervix. It is not a diagnostic procedure and should not be used as the sole means of detecting cervical cancer. Both false-positive and false-negative reports do occur. . Performed at: WB Performed By: #### [id number] #### [facility] [address] [address] [address] Vijay George Performed by: Comment Normal [facility] Comment on above: Result Comment: Kiah Salmeron Ground Transportation Operator (ASCP) Performed at: WB Performed By: #### [id number] #### [facility] [address] [address] [address] Vijay George QC reviewed by: Comment Normal [facility] Comment on above: Result Comment: Urban Wetzel, Supervisory Ground Transportation Operator (ASCP) Performed at: WB Performed By: #### [id number] #### [facility] [address] [place] [address] Dr. Vijay George Specimen adequacy: Comment Normal [facility] Comment on above: Result Comment: Sati sfactory for evaluation. No endocervical component is identified. Performed at: WB Performed By: #### [id number] #### [facility] [address] [address] [address] Vijay George MRI LSPINE WO CONon [...] WAYNE KAPLAN Date: 2021-05-06 14:14 Normal [facility] MRI SHOULDER LT WO CONon MRI SHOULDER [...] by: THERESA HARRIS Date: 2021-05-06 14:52 Normal [facility] Vital Signs Date Time Vital Sign Value Performing Clinician Facility 07-10-2024 13:17050 Body height 165.1 cm Hitesh Obregon MD Work Phone: [facility] 07-10-2024 13:050 Body mass index (BMI) [Ratio] 33.61 kg/m2 Hitesh Obregon MD Work Phone: [facility] 07-10-2024 13:17050 Body temperature 97.3 [degF] Hitesh Obregon MD Work Phone: [facility] 07-10-2024 13:17-0500 Body weight 91.63 kg Hitesh Obregon MD Work Phone: [facility] 07-10-2024 13:17-0500 Diastolic blood pressure 66 mm[Hg] Hitesh Obregon MD Work Phone: [facility] 07-10-2024 13:17-0500 Heart rate 88 /min Hitesh Obregon MD Work Phone: [facility] 07-10-2024 13:17-0500 Respiratory rate 20 /min Hitesh Obregon MD Work Phone: [facility] 07-10-2024 13:17-0500 SaO2% (BldA) [Mass fraction] 95 % Hitesh Obregon MD Work Phone: [facility] 07-10-2024 13:17-0500 Systolic blood pressure 110 mm[Hg] Hitesh Obregon MD Work Phone: [facility] 05-22-2021 15:00-0500 Body height 167.64 cm Jose Alfredo Perez Other [facility] Other 05-22-2021 15:00-0500 Body mass index (BMI) [Ratio] 30.66 kg/m2 Jose Alfredo Perez Other [facility] Other 05-22-2021 15:00-0500 Body weight 86.18 kg Jose Alfredo Perez Other [facility] Other Encounters Encounter Date Encounter Type Care [...] Not Available Start: 06-01-2024 ambulatory Viral Rosario acility:[facility] Start: 04-07-2024 End: 04-10-2024 Refill Hitesh Obregon MD Work Phone: [facility] Comment on above: Generalized anxiety disorder (CMS/HCC); Fibromyalgia; Degenerative lumbar spinal stenosis Start: 01-25-2024 End: 01-25-2024 Orders Only Hitesh Obregon MD Work Phone: [facility] Comment on above: Primary hypothyroidi sm (CMS/HCC) (Primary Dx) Start: 01-21-2024 End: 01-21-2024 Clinisync Result Encounter Hitesh Obregon MD Work Phone: [facility] External Department Unsolicited Start: 01-21-2024 End: 01-21-2024 Clinisync Result Encounter Hitesh Obregon MD Work Phone: [facility] External Department Unsolicited Start: 01-10-2024 End: 01-10-2024 ambulatory HITESH OBREGON Not Available Start: 12-07-2023 End: 12-07-2023 ambulatory DEVIN BHANDARI Not Available Start: 11-01-2023 End: 11-01-2023 ambulatory ADORE MENDOZA Not Available Start: 10-29-2023 End: 10-29-2023 ambulatory Selma Olvera MD Facility:[facility] Start: 10-20-2023 End: 10-20-2023 ambulatory HITESH OBREGON Not Available Start: 10-19-2023 End: 10-19-2023 ambulatory Tia Rainey Ictiff PA-C Facility:[facility] Start: 10-01-2023 End: 10-01-2023 ambulatory Tia Webb PA-C Facility:[facility] Start: 09-13-2023 End: 09-13-2023 ambulatory Tia Rainey Ictiff PA-C Facility:[facility] Start: 09-04-2023 End: 09-04-2023 [facility] Start: 09-03-2023 End: 09-03-2023 ambulatory [facility] Start: 08-19-2023 End: 08-19-2023 ambulatory [facility] Start: 07-23-2023 End: 07-23-2023 ambulatory [facility] Start: 07-23-2023 End: 07-23-2023 ambulatory [facility] Start: 07-19-2023 End: 07-19-2023 ambulatory LU ZMARIA Castellano [facility] Start: 07-10-2023 End: 07-10-2023 ambulatory ANURAG S [facility] Start: 07-09-2023 End: 07-09-2023 ambulatory [facility] Start: 06-24-2023 End: 06-24-2023 ambulatory [facility] Start: 05-31-2023 End: 05-31-2023 ambulatory Tia Webb PA-C Facility:[facility] Start: 05-13-2023 End: 05-13-2023 ambulatory Tia Webb PA-C Facility:[facility] Start: 03-15-2023 End: 03-15-2023 ambulatory Sonali Lopez PA-C Facility:[facility] Start: 12-29-2021 End: 12-30-[address] HITESH OBREGON Facility:[facility] Start: 09-29-2021 End: 09-30-[address] HITESH OBREGON Facility:[facility] Start: 07-04-2021 Encounter for genera l adult medical examination without abnormal findings DR HITESH OBREGON [facility] Start: 06-30-2021 End: 07-01-[address] HITESH OBREGON Facility:[facility] Start: 06-30-2021 End: 07-01-2021 Encounter for general adult medical examination without abnormal findings DR HITESH OBREGON Facility:[facility] Start: 06-02-2021 End: 06-02-[address] DEVIN BHANDARI Facility:[facility] Start: 05-22-2021 End: 05-22-2021 ambulatory Jose Alfredo Perez Other [facility] Other Start: 05-22-2021 Office outpatient ne w 30 minutes Jose Alfredo Perez [facility] Start: 05-06-2021 End: 05-07-2021 [...] for malign ant neoplasm of colon [facility] Start: 01-08-2025 End: 01-08-2025 Patient encounter procedure 01/08/2025 1:15 PM EDT Office Visit [facility] [address] [place] [phone] Hitesh Obregon MD [address] [place] [phone] [facility] Start: 12-11-2024 End: 12-11-2024 Patient encounter procedure 12/11/2024 11:00 AM EDT Office Visit [facility] [address] [place] [phone] Devin Bhandari, DO [address] [place] [address] [facility] Start: 10-28-2024 Screening for malign ant neoplasm of breast Mammogram [facility] Start: 07-10-2024 End: 07-10-2025 25-hydroxyvitamin D3 [Mass/volume] in Serum or Plasma Vitamin D 25 hydroxy Lab Routine Vitamin D deficiency Expected: 07/10/2024 (Approximate), Expires: 07/10/2025 [facility] Comment on above: Expected: 07/10/2024 (Approximate), Expires: 07/10/2025 Start: 07-10-2024 End: 07-10-2025 Basic metabolic 1998 panel - Serum or Plasma Basic metabolic panel Lab Routine Encounter for long-term (current) use of medications Expected: 07/10/2024 (Approximate), Expires: 07/10/2025 [facility] Comment on above: Expected: 07/10/2024 (Approximate), Expires: 07/10/2025 Start: 07-10-2024 End: 07-10-2025 CBC W Auto Differential panel - Blood CBC and differential Lab Routine Encounter for long-term (current) use of medications Expected: 07/10/2024 (Approximate), Expires: 07/10/2025 [facility] Comment on above: Expected: 07/10/2024 (Approximate), Expires: 07/10/2025 Start: 07-10-2024 End: 07-10-2025 Hemoglobin A1c/Hemoglobin.total in Blood Hemoglobin A1c Lab Routine Prediabetes Expected: 07/10/2024 (Approximate), Expires: 07/10/2025 [facility] Work Phone: Comment on above: Expected: 07/10/2024 (Approximate), Expires: 07/10/2025 Start: 07-10-2024 End: 07-10-2025 Hepatic function 2000 panel - Serum or Plasma Hepatic function panel Lab Routine Encounter for long-term (current) use of medications Expected: 07/10/2024 (Approximate), Expires: 07/10/2025 [facility] Comment on above: Expected: 07/10/2024 (Approximate), Expires: 07/10/2025 Start: 07-10-2024 End: 07-10-2025 Lipid 1996 panel - Serum or Plasma Lipid panel Lab Routine Dyslipidemia (CMS/HCC) Expected: 07/10/2024 (Approximate), Expires: 07/10/2025 [facility] Comment on above: Expected: 07/10/2024 (Approximate), Expires: 07/10/2025 Start: 07-10-2024 End: 07-10-2025 MR Shoulder - right WO contrast MR shoulder right wo IV contrast Imaging Routine Chronic right shoulder pain Expected: 07/10/2024, Expires: 07/10/2025 [facility] Comment on above: Expected: 07/10/2024 , Expires: 07/10/2025 Start: 07-10-2024 End: 07-10-2025 Thyrotropin [Units/volume] in Serum or Plasma TSH Lab Routine Primary hypothyroidism (CMS/HCC) Expected: 07/10/2024 (Approximate), Expires: 07/10/2025 [facility] Comment on above: Expected: 07/10/2024 (Approximate), Expires: 07/10/2025 Start: 07-10-2024 End: 07-10-2025 Thyroxine (T4) free [Mass/volume] in Serum or Plasma T4, free Lab Routine Primary hypothyroidism (CMS/HCC) Expected: 07/10/2024 (Approximate), Expires: 07/10/2025 [facility] Comment on above: Expected: 07/10/2024 (Approximate), Expires: 07/10/2025 Start: 07-10-2024 End: 07-10-2025 Triiodothyronine (T3) Free [Mass/volume] in Serum or Plasma T3, free Lab Routine Primary hypothyroidism (CMS/HCC) Expected: 07/10/2024 (Approximate), Expires: 07/10/2025 [facility] Comment on above: Expected: 07/10/2024 (Approximate), Expires: 07/10/2025 Start: 07-10-2024 End: 07-10-2024 Patient encounter procedure [facility] Comment on above: Arrived Start: 01-23-2024 Influenza vaccination Influenza Vacc ine (#1) [facility] Start: 09-08-2005 Screening for malign ant neoplasm of cervix [facility] Start: 09-08-1996 Screening for malign ant neoplasm of cervix Pap Smear [facility] Start: 1975 Screening for malign ant neoplasm of colon [facility] Payers Date Payer Category Payer Self-pay 2022 Medicaid [id number] 2022 Medicaid [id number] 2022 Unknown 1975 Unknown [id number] 2.16.84 0.1.136182.3.579.2.593 1975 Unknown [id number] 2.16.84 0.1.967421.3.579.2.593 1975 Unknown [id number] 2.16.84 0.1.382747.3.579.2.593 1975 Unknown [id number] 2.16.84 0.1.847850.3.579.2.593 1975 Unknown [id number] 2.16.84 0.1.537347.3.579.2.593 1975 Unknown [id number] 2.16.8 40.1.852682.3.579.2.1286 1975 Unknown [id number] 2.16.8 40.1.303589.3.579.2.1286 1975 Unknown [id number] 2.16.8 40.1.194205.3.579.2.1286 1975 Unknown [id number] 2.16.8 40.1.445748.3.579.2.1286 1975 Unknown [id number] 2.16.8 40.1.747355.3.579.2.128 1975 Unknown [id number] 2.16.8 40.1.283112.3.579.2.1285 1975 Unknown [id number] 2.16.8 40.1.237910.3.579.2.1285 1975 Unknown [id number] 2.16.8 40.1.900876.3.579.2.1285 1975 Unknown [id number] 2.16.8 40.1.599811.3.579.2.1285 1975 Unknown [id number] 2.16.8 40.1.917861.3.579.2.1285 1975 Unknown [id number] 2.16.8 40.1.214061.3.579.2.1285 1975 Unknown [id number] 2.16.8 40.1.097833.3.579.2.1285 1975 Unknown [id number] 2.16.8 40.1.297245.3.579.2.1285 1975 Unknown [id number] 2.16. 840.1.488709.3.579.2. 1975 Unknown [id number] 2.16. 840.1.161808.3.579.2. 1975 Unknown [id number] 2.16. 840.1.973012.3.579.2. 1975 Unknown [id number] 2.16. 840.1.877507.3.579.2. 1975 Unknown [id number] 2.16. 840.1.272014.3.579.2. 1975 Unknown [id number] 2.16. 840.1.878779.3.579.2. 1975 Unknown [id number] 2.16. 840.1.074965.3.579.2. 1975 Unknown [id number] 2.16. 840.1.849321.3.579.2. 1975 Unknown [id number] 2.16.84 0.1.360018.3.579.2.9 1975 Unknown [id number] 2.16.84 0.1.499182.3.579.2.9 1975 Unknown [id number] 2.16.84 0.1.753160.3.579.2.9 1975 Unknown [id number] 2.16.84 0.1.613377.3.579.2.1258 1975 Unknown [id number] 2.16.84 0.1.575942.3.579.2.1259 1959 Unknown [id number] 2.1 6.840.1.488305.19 1959 Unknown [id number] Unknown [id number] 2.16.8 40.1.842663.3.579.2.531 Social History Date Type Detail Facility Start: 01-10-2024 End: 07-10-[address] [facility] Other Start: 04-26-2023 Tobacco smoking stat [facility] Ex-smoker [facility] Start: 05-24-1995 End: 05-24-2010 History of tobacco use Current smoker [facility] Start: 05-24-1995 End: 05-24-2010 History of tobacco use Cigarette Smoker [facility] Start: 04-26-2023 End: 07-10-2024 Cigarettes smoked current (pack per day) - Reported 1 [facility] Start: 04-26-2023 Tobacco use and exposure Smokeless tobacco non-user [facility] Start: 01-10-2024 End: 07-10-2024 Alcoholic beverage intake Lifetime non-drinker (finding) [facility] Start: 1975 Sex assigned at Not [...] Hepatic function panel documented in this encounter [facility] Evaluation note 05-22-2021 Note Date & Type [...] and we will refer her to the [place] area. Apr, Degeneration of intervertebral disc at L5-S1 level (ICD-10 - M51.37) [facility] Other History general Narrative - Reported 08-23-2015 Note Date & Type Note Facility 08-23-2015 History general N arrative - Reported Type Medical History graves disease Medical History acid reflux Medical History anxiety Medical History 08/23/2015 EGD/Colon oscopy-tiny hiatal hernia, noraml colonoscopy,hemorrhoids Medical History fibromyalgia Surgical History cholecystectomy Surgical History hysterectomy Hospitalization History see above [facility] Other Evaluation note Note Date & Type [...] disc at L5-S1 level (M51.37) Referral Organization [facility] Referring Provider First Name Jose Alfredo Referring Provider Last Name Perez Referring Provider Specialty Neurologica l Surgery Referred Organization [facility] Referred Provider Jr. Vazquez William Referred Address [address],[place],[address] Referred Provider Specialty Pain Medicin e Referral [...] and content) DATE CREATED AUTHOR 12/31/2021 [facility] DATE CREATED AUTHOR AUTHOR'S ORGANIZ ATION 10/31/2023 [facility] DATE CREATED AUTHOR AUTHOR'S ORGANIZ ATION 11/06/2023 [facility] DATE CREATED AUTHOR AUTHOR'S ORGANIZ ATION 06/06/2024 [facility] DATE CREATED AUTHOR AUTHOR'S ORGANIZ ATION 07/11/2024 [facility] EPIC Care Teams (unrecognized sec tion and content) Pocket Assembler Relationship Specialty Start Date End Date Hitesh Obregon MD [address] [place] [address] PCP - General Family Medicine 10/20/23 Erin Oconnell PA [address] [place] [address] PCP - [facility] 11/22/23 Pocket Assembler Relationship Specialty Start Date End Date Hitesh Obregon MD [address] [place] [phone] PCP - General Family Medicine 10/20/23 Pocket Assembler Relationship Specialty Start Date End Date Hitesh Obregon MD [address] [place] [phone] PCP - General Family [facility] 10/20/23 Pocket Assembler Relationship Specialty Start Date End Date Hitesh Obregon MD [address] [place] [phone] PCP - General Family [facility] 10/20/23 Erin Oconnell PA [address] [place] [address] PCP - [facility] 11/22/23 Pocket Assembler Relationship Specialty Start Date End Date Hitesh Obregon MD [address] [place] [phone] PCP - General Family [facility] 10/20/23 Erin Oconnell PA [address] [place] [address] PCP [facility] 11/22/23 FOR RECORDS PERTAINING TO PATIENTS WHO [...] BE BASED ON THE PRIMARY CLINICAL RECORDS. [facility], [facility]. provides no warranty or guarantee of the accuracy or completeness of information in this document.
[2024-08-07 11:36] LABS: Basophils Absolute Auto 0.1 10^3/uL (0.0-0.1); Eosinophils Absolute Auto 0.4 10^3/uL (0.0-0.7); Hematocrit 39.8 % (36.0-48.0); Hemoglobin 12.9 g/dL (12.0-16.0); Immature Granulocytes Abs Auto 0.02 10^3/uL (0.00-0.03); Immature Granulocytes Pct Auto 0.2 % (0.0-0.5); Lymphocytes Absolute Auto 1.5 10^3/uL (1.2-3.8); Lymphocytes Percent Auto 18.5 % (20.5-60.0); Mean Corpuscular HGB Conc 32.4 g/dL (29.9-35.2); Mean Corpuscular Hemoglobin 29.9 pg (26.7-34.0); Mean Corpuscular Volume 92.3 fL (81.0-99.0); Mean Platelet Volume 10.1 fL (9.5-13.5); Monocytes Absolute Auto 0.6 10^3/uL (0.3-0.8); Monocytes Percent Auto 7.1 % (1.7-12.0); Neutrophils Absolute Auto 5.5 10^3/uL (1.4-6.5); Neutrophils Percent Auto 68.2 % (43.0-75.0); Platelet Count 319 10^3/uL (150-450); Red Blood Count 4.31 10^6/uL (4.20-5.40); Red Cell Distribution Width 12.1 % (11.0-15.0); White Blood Count 8.1 10^3/uL (4.0-11.0)
[2024-08-07 11:57] LABS: Estimated Average Glucose 105 mg/dL; Glycohemoglobin A1C 5.3 % (4.5-6.2)
--- NOTE | 2024-08-07 11:58 | MR_ITS ---
[address] [address] Patient Name: LAKIA TALBERT MRN: [id number] date: 1975 Sex: F Assigned Patient Location: MRI Current Patient Location: MRI Accession/Order Number: [id number] Exam Date: 08/07/2024 14:48 Report Date: 08/07/2024 14:54 At the request of: JAYLA OBREGON MD Procedure: MR shoulder RT wo con EXAMINATION: MRI OF THE RIGHT SHOULDER CLINICAL HISTORY: Chronic Right Shoulder Pain M25.511 COMPARISON: Right shoulder series 12/25/2023 TECHNIQUE: Multiecho, multiplanar imaging was performed with use of an extremity coil. No contrast was administered. FINDINGS: Examination is limited due to motion. Bones/Joints: Minimal joint effusion. Subacromial/subdeltoid bursitis. Mild degenerative changes of the AC joint. Minimal degenerative changes involving the humeral head and glenoid. Inferior glenohumeral ligament appears unremarkable. Labrum: Suboptimally visualized. No focal abnormality is seen. Biceps tendon: Small amount of fluid is seen surrounding the tendon within the bicipital groove. No abnormal signal is identified to suggest tendinitis. Supraspinatus: Mild tendinosis without definitive tear. Infraspinatus: Normal Teres Minor: Normal Subscapularis: Normal MR/MR shoulder RT wo con IMPRESSION: DEGENERATIVE CHANGES INVOLVING THE AC AND GLENOHUMERAL JOINTS WITH MINIMAL JOINT EFFUSION. THERE IS MILD TENDINOSIS INVOLVING THE SUPRASPINATUS WITHOUT DEFINITIVE TEAR. Impression dictated by: Mark Thomas Jr., D.O.08/07/2024 2:54 PM Dictation Location: [place] [address] Electronically authenticated by: [id number] Y Date: 08/07/2024 14:54
[2024-08-07 12:12] LABS: Alanine Aminotransferase 17 U/L (14-59); Albumin Globulin Ratio 0.9; Albumin Level 3.5 g/dL (3.4-5.0); Alkaline Phosphatase 107 U/L (46-116); Anion Gap 9.4; Aspartate Amino Transferase 12 U/L (15-37); BUN Creatinine Ratio 17.1; Bilirubin Direct <0.1 mg/dL (0.0-0.2); Bilirubin Total 0.2 mg/dL (0.2-1.0); Calcium 9.2 mg/dL (8.5-10.1); Chloride 103 mmol/L (98-107); Chol HDL Ratio 3.6; Cholesterol 196 mg/dL (<=200); Estimated GFR (African America >60 (>=60 mL/min/1.73m^2); Estimated GFR (Non-African Ame 56 (>=60 mL/min/1.73m^2); Free T3 2.02 pg/mL (2.18-3.98); Globulin 4.1 g/dL; Glucose 112 mg/dL (74-106); HDL Cholesterol 54 mg/dL (40-60); Potassium 4.4 mmol/L (3.5-5.1); Sodium 138 mmol/L (136-145); Thyroid Stimulating Hormone 2.152 uIU/mL (0.358-3.740); Total Protein 7.6 g/dL (6.4-8.2); Triglycerides 425 mg/dL (<=150)
[2024-08-07 12:15] LABS: LDL Cholesterol Direct 89 mg/dL
[2024-08-07 12:23] LABS: Free T4 0.96 ng/dL (0.76-1.46)
== END 2024-08-07 10:47 | disposition home or self-care (01) ==
PROVIDERS: PCP Family Medicine; Visit Provider Family Medicine
DX: M25.511 Pain in right shoulder (principal); G89.29 Other chronic pain; E03.9 Hypothyroidism, unspecified; R73.03 Prediabetes; E55.9 Vitamin D deficiency, unspecified; Z79.899 Other long term (current) drug therapy; E78.5 Hyperlipidemia, unspecified; M19.011 Primary osteoarthritis, right shoulder
CPT/HCPCS: 36415; 73221; 80048; 80061; 80076; 82306; 83036; 83721; 84439; 84443; 84481; 85025

== ENCOUNTER 2024-12-11 15:54 | Outpatient (REF) | payer MEDICAID, SELFPAY ==
[2024-12-14 21:07] LABS: Age Gdln ACOG Testing Note (.); IGP, Aptima HPV, rfx 16/18,45 Note (.)
== END 2024-12-11 15:55 | disposition home or self-care (01) ==
LOC: LAB 15:54
PROVIDERS: PCP Family Medicine; Visit Provider Obstetrics & Gynecology
DX: Z01.419 Encounter for gynecological examination (general) (routine) without abnormal findings (principal)
CPT/HCPCS: 87624; 88175